=== PATIENT | female | born 1945 | race Caucasian/White ===

== ENCOUNTER → 2017-02-05 | Outpatient (REF) | payer MEDICARE, BC ==
[~2017-02-05] MED LIST: /HCTZ25TA PO; ACET50TA PO; ATOR1TAB21 PO; EFFEXOR PO; EXCEDRIN; FENO145T PO; OXYC30TA4 PO; PERC7.5T12 PO; XARE10TA PO
== END ==
LOC: M LAB REF 16:25
PROVIDERS: ATTEND Nurse Practitioner Adult Health
DX: E78.00 Pure hypercholesterolemia, unspecified (principal)

== ENCOUNTER → 2017-08-09 | Outpatient (REF) | payer MEDICARE, BC ==
[2017-08-09 14:00] LABS: ALBUMIN 3.9 GM/DL (3.2-5.2); ALBUMIN/GLOBULIN RATIO 1.26 (1.00-1.93); ALKALINE PHOSPHATASE 92 U/L (45-117); ALT/SGPT 19 U/L (12-78); ANION GAP 7 MEQ/L (8-16); AST/SGOT 20 U/L (15-37); BILIRUBIN,TOTAL 0.5 MG/DL (0.2-1.0); BLOOD UREA NITROGEN 21 MG/DL (7-18); CALCIUM LEVEL 9.7 MG/DL (8.8-10.2); CARBON DIOXIDE LEVEL 28 MEQ/L (21-32); CHLORIDE LEVEL 104 MEQ/L (98-107); CREATININE FOR GFR 0.83 MG/DL (0.55-1.02); GLOMERULAR FILTRATION RATE > 60.0 (>39); GLUCOSE, FASTING 118 MG/DL (83-110); POTASSIUM SERUM 4.4 MEQ/L (3.5-5.1); SODIUM LEVEL 139 MEQ/L (136-145)
== END ==
LOC: M LAB REF 13:29
PROVIDERS: ATTEND Nurse Practitioner Adult Health
DX: I10 Essential (primary) hypertension (principal); E78.00 Pure hypercholesterolemia, unspecified; R10.11 Right upper quadrant pain

== ENCOUNTER → 2017-08-20 | Outpatient (REF) | payer MEDICARE, BC ==
[2017-08-20 13:25] LABS: AMYLASE 81 U/L (25-115)
[2017-08-20 14:07] LABS: CONTROL LINE HPYORI INT CTR LINE PRESENT
== END ==
LOC: M LABDRWAD 12:16
PROVIDERS: ATTEND Nurse Practitioner Adult Health
DX: R10.11 Right upper quadrant pain (principal)

== ENCOUNTER → 2018-01-04 | Outpatient (CLI) | payer MEDICARE, BC ==
[2018-01-04 18:59] LABS: BASO # 0.1 10^3/uL (0.0-0.2); BASO % 0.8 % (0.0-1.0); EOS # 0.3 10^3/uL (0.0-0.50); EOS % 3.5 % (0.0-3.0); HEMATOCRIT 47.1 % (36.0-47.0); HEMOGLOBIN 14.8 g/dl (12.0-16.0); IMMATURE GRANULOCYTE % 0.3 % (0-3.0); LYMPH # 2.1 10^3/uL (1.5-4.5); MEAN CORPUSCULAR HEMOGLOBIN 30.5 pg (27.0-33.0); MEAN CORPUSCULAR HGB CONC 31.4 g/dl (32.0-36.5); MEAN CORPUSCULAR VOLUME 96.9 fl (80.0-96.0); MONO # 0.6 10^3/uL (0.0-0.8); MONO % 6.8 % (0.0-5.0); NEUTROPHILS # 6.1 10^3/uL (1.8-7.7); NEUTROPHILS % 65.6 % (36.0-66.0); PLATELET COUNT, AUTOMATED 304 10^3/uL (150-450); RED BLOOD COUNT 4.86 10^6/uL (4.00-5.40); RED CELL DISTRIBUTION WIDTH 12.9 % (11.5-14.5); WHITE BLOOD COUNT 9.3 10^3/uL (4.0-10.0)
== END ==
LOC: M ADAMS 08:20
DX: J20.9 Acute bronchitis, unspecified (principal)
CPT/HCPCS: 85025

== ENCOUNTER → 2018-07-21 | Outpatient (REF) | payer MEDICARE, BC ==
[2018-07-21 13:43] LABS: HEPATITIS B SURFACE ANTIGEN NEGATIVE (NEGATIVE)
[2018-07-21 14:06] LABS: HEPATITIS C VIRUS ABY INDEX 0.1 INDEX (<0.8)
[2018-07-21 14:06] LABS: HEPATITIS B CORE ANTIBODY IGM NEGATIVE (NEGATIVE)
[2018-07-21 14:09] LABS: HEPATITIS A ANTIBODY IGM NEGATIVE (NEGATIVE)
== END ==
LOC: M LAB REF 12:10
DX: Z01.89 Encounter for other specified special examinations (principal)
CPT/HCPCS: 87340

== ENCOUNTER → 2020-04-22 | Outpatient (REF) | payer MEDICARE, BC ==
[~2020-04-22] MED LIST changes: -/HCTZ25TA PO; -ACET50TA PO; +HYDR-3644 PO; +MAPA500T17 PO
[2020-04-22 13:05] LABS: APPEARANCE, URINE CLEAR (CLEAR); BACTERIA, URINE AUTO NEGATIVE (NEGATIVE); BILIRUBIN, URINE AUTO NEGATIVE (NEGATIVE); BLOOD, URINE BLOOD NEGATIVE (NEGATIVE); COLOR, URINE YELLOW (YELLOW); GLUCOSE, URINE (UA) AUTO NEGATIVE (NEGATIVE); KETONE, URINE AUTO NEGATIVE (NEGATIVE); LEUKOCYTE ESTERASE, URINE AUTO NEGATIVE (NEGATIVE); MUCUS, URINE SMALL (NEGATIVE); NITRITE, URINE AUTO NEGATIVE (NEGATIVE); PROTEIN, URINE AUTO NEGATIVE (NEGATIVE); RBC, URINE AUTO 1 /HPF (0-3); SPECIFIC GRAVITY URINE AUTO 1.024 (1.002-1.035); SQUAMOUS EPITHELIAL CELL UR AU 0 /HPF (0-6); UROBILINOGEN, URINE AUTO 0.2 mg/dL (0.0-2.0); WBC, URINE AUTO 0 /HPF (0-3)
[2020-04-22 13:06] LABS: BASO # 0.1 10^3/uL (0.0-0.2); BASO % 0.7 % (0.0-1.0); EOS # 0.2 10^3/uL (0.0-0.5); EOS % 2.7 % (0.0-3.0); HEMATOCRIT 44.6 % (36.0-47.0); HEMOGLOBIN 14.4 g/dl (12.0-15.5); LYMPH # 1.3 10^3/uL (1.5-5.0); LYMPH % 16.7 % (24.0-44.0); MEAN CORPUSCULAR HEMOGLOBIN 30.4 pg (27.0-33.0); MEAN CORPUSCULAR HGB CONC 32.3 g/dl (32.0-36.5); MEAN CORPUSCULAR VOLUME 94.3 fl (80.0-96.0); MONO # 0.5 10^3/uL (0.0-0.8); MONO % 5.7 % (0.0-5.0); NEUTROPHILS # 5.9 10^3/uL (1.5-8.5); PLATELET COUNT, AUTOMATED 250 10^3/uL (150-450); RED BLOOD COUNT 4.73 10^6/uL (4.00-5.40)
[2020-04-22 13:13] LABS: ALBUMIN 3.5 GM/DL (3.2-5.2); ALT/SGPT 18 U/L (12-78); BILIRUBIN,TOTAL 0.5 MG/DL (0.2-1.0); BLOOD UREA NITROGEN 16 MG/DL (7-18); CALCIUM LEVEL 9.1 MG/DL (8.8-10.2); CARBON DIOXIDE LEVEL 27 MEQ/L (21-32); CHLORIDE LEVEL 109 MEQ/L (98-107); CHOLESTEROL LEVEL 195 MG/DL (<200); CHOLESTEROL RISK RATIO 3.979 (<5); CREATININE FOR GFR 0.74 MG/DL (0.55-1.30); GLOMERULAR FILTRATION RATE > 60.0 (>39); GLUCOSE, FASTING 102 MG/DL (70-100); HDL CHOLESTEROL 49 MG/DL (>40); LDL CHOLESTEROL 104 MG/DL (<100); NON-HDL-C 146 MG/DL; SODIUM LEVEL 144 MEQ/L (136-145); TOTAL PROTEIN 6.5 GM/DL (6.4-8.2); TRIGLYCERIDES LEVEL 211 MG/DL (<150)
== END ==
LOC: M LABDRWAD 12:19
PROVIDERS: ATTEND Nurse Practitioner Adult Health
DX: I10 Essential (primary) hypertension (principal); E78.00 Pure hypercholesterolemia, unspecified; R73.09 Other abnormal glucose

== ENCOUNTER → 2020-09-20 | Outpatient (REF) | payer MEDICARE, BC ==
[2020-09-20 13:12] LABS: C REACTIVE PROTEIN QUANTITATIV < 0.30 MG/DL (0.00-0.30); RHEUMATOID FACTOR QUANT < 10.0 IU/ML (<15.0)
[2020-09-23 15:07] LABS: ANTINUCLEAR ANTIBODIES DIRECT Negative (Negative); HLA-B27 Negative (.)
== END ==
LOC: M LABDRWAD 12:10
PROVIDERS: ATTEND Physician Assistant
DX: M47.817 Spondylosis without myelopathy or radiculopathy, lumbosacral region (principal)

== ENCOUNTER → 2021-03-14 | Outpatient (REF) | payer MEDICARE, BC ==
[2021-03-14 13:40] LABS: BLOOD UREA NITROGEN 13 MG/DL (7-18); CREATININE FOR GFR 0.65 MG/DL (0.55-1.30); GLOMERULAR FILTRATION RATE > 60.0 (>39)
== END ==
LOC: M LABDRWAD 12:28
PROVIDERS: ATTEND Orthopaedic Surgery Orthopaedic Surgery of the Spine
DX: M54.5 Low back pain (principal)

== ENCOUNTER 2021-06-13 11:35 | Inpatient (IN) | payer MEDICARE, BC ==
[~2021-06-13] VITALS: Ht 170.2 cm; Wt 80.8 kg
[~2021-06-13 11:35] MED LIST changes: +POTA1TAB23 PO
--- NOTE | 2021-06-13 14:24 | HPEPDOC ---
Supervisor Sanding Note DATE OF ADMISSION: 06-13-21 DATE OF SERVICE: 06-13-21 TIME OF ADMISSION: Please refer to physician's admission order. SOURCE OF ADMISSION INFORMATION: Isabela Clancy's record CHIEF COMPLAINT:cervical stenosis s/p decompression surgery HISTORY OF PRESENT ILLNESS: 76F pmh depression, GERD, HLD, HTN, cervical stenosis with worsening LE weakness admitted to [facility] on 06/05/21and underwent a C5-C6 and C6-C7 anterior discectomy fusion cage with local bone graft. Following surgery she developed a C difficile infection and was started on Vancomycin on 06-09-21. She had post-op anemia and hypokalemia. She had persistent weakness in her lower limbs, with mobility and ADL impairments and deemed medically appropriate for discharge to ARU on 06-13-21. REVIEW OF SYSTEMS: The following is a completed review of systems and has been reviewed. Review of systems otherwise unremarkable. PAIN: Patient self reports no pain EYES: No recent vision changes EARS, NOSE, & THROAT: No throat pain, or dysphagia, or rhinorrhea CARDIOVASCULAR: Denies chest pain or palpitations PULMONARY: Denies shortness of breath GASTROINTESTINAL: Denies constipation/diarrhea GENITOURINARY:denies dysuria or incontinence MUSCULOSKELETAL: bilat LE weakness NEUROLOGICAL: denies tremor or paresthesias HEMATOLOGICAL: denies easy bruising SKIN: denies rash PSYCHIATRIC: Unremarkable All other review of systems found to be negative. PAST MEDICAL HISTORY: as per HPI PAST SURGICAL HISTORY: as per HPI ALLERGIES: Please see below. MEDICATIONS: Please see below. SOCIAL HISTORY: no etoh/illicit drugs/smoking DIET:regular PHYSICAL EXAMINATION: VITAL SIGNS: Please see below. GENERAL: Pleasant and cooperative. No acute distress. HEENT: PERRL. Extraocular movements intact. Clear conjunctiva CARDIOVASCULAR: Regular rate and rhythm. No murmurs, rubs, or gallops LUNGS: Clear to auscultation bilaterally. No wheezes. No rhonchi ABDOMEN: Soft, nontender, nondistended. Positive bowel sounds. Normal active bowel sounds NEUROLOGICAL: Alert and oriented times three. Cranial nerves II through XII grossly intact. Sensation grossly intact all 4 limbs. EXTREMITIES: 5\5 strength bilateral upper extremities. 4\5 strength right lower extremity. 5-/5 strength in left lower extremity. SKIN: anterior neck incision with steri-strips, c/d/i LABORATORY DATA: Please see below. IMAGING: Imaging documentation personally reviewed by record FUNCTIONAL STATUS: Premorbid: Mod-Independent with all activities of daily life as well as mobility up until last few months, where she was using wheelchair On Admission: Min assist for bed mobility, functional transfers, dressing, mod- assist for ambulation Goals: Mod-I household distances for ambulation, functional transfers, dressing, toileting, bathing ASSESSMENT:76-year-old F with past medical history of cervical stenosis with bilat LE weakness who presents status post cervical decompression surgery PLAN: 1. Rehab- PT/OT advance mobility and ADLs, strengthen/stretch/maintain ROM al 4limbs, avoid strenuous activity 2. Neuro- cerival stenosis with LE weakness causing significant gait impairment, s/p C5-C6 C6-C7 discectomy with fusion and cage, f/u with Dr. Pereira at [facility] at d/c 3. Cardiac- hx of HTN, cont BP meds -HLD- cont statin -medicine consulted to assist in overall management 4. Resp- monitor for infection 5. GI- cont vancomycin for C diff infection for 2 weeks total, will avoid PPIs as can contribute to C diff infection, and will hold off on magnesium supplements until have Mg level as this can also contribute to diarrhea, will start bacid 6. DVT ppx- teds, avoid AC given recent neck surgery 7. Psych- zoloft and xanax for depression/anxiety 8. Pain- tylenol and oxycodone 9. Dispo- tbd POST ADMISSION PHYSICIAN EVALUATION: Medical and functional status: Description of medical status, medical assessment: As above. Rehabilitation diagnosis and current and prior cold morbid medical conditions as above. Risk of complications and plans to mitigate them as above. Description of functional status current status is as above. Prior status as above. Status compared to preadmission: There are no clinically significant differences between the patient's current status and the information described on the preadmission screening document. Treatment plan anticipated: Treatment plan is as described above. Required disciplines including physical therapy, occupational therapy, others as noted above Intensity of services: 3 hours a day, 6 days a week. Special considerations: There are no specific special or safety considerations that would likely preclude immediate implementation of an intensive rehabilitation program or subsequently influence the plan of care ATTESTATION: Considering all the information above, it is my best judgment that this patient requires intensive rehabilitation therapy as described above and an inpatient hospital environment due to the complexity of nursing, medical, and rehabilitation needs required by the patient. Furthermore, this patient can reasonably be expected to participate in an benefit from an inpatient rehabilitation stay with an interdisciplinary team approach to the delivery of rehabilitation care under the direction and supervision of rehabilitation physician PROGNOSIS: Excellent. ESTIMATED LENGTH OF STAY:14-18 days. PROJECTED DISCHARGE DESTINATION: Home with family support and any durable medical equipment required to increase functional safety and mobility TIME SPENT COUNSELING AND COORDINATING INITIAL CARE: Greater than 70 minutes. Vital Signs Vital Signs Date Time Temp Pulse Resp B/P (MAP) Pulse Ox O2 Delivery O2 Flow Rate FiO2 06/13/21 15:53 96.9 101 20 150/68 (95) 98 Room Air Home Medications Scheduled Atorvastatin Calcium (Atorvastatin Calcium) 40 Mg Tablet, 40 MG PO DAILY, (Reported) Magnesium Oxide (Magnesium Oxide) 400 Mg Tablet, 400 MG PO DAILY, (Reported) Metoprolol Succinate (Metoprolol Succinate) 50 Mg Tab.er.24h, 25 MG PO DAILY, (Reported) Multivitamins (Thera M Plus Tablet) 1 Each Tablet, 1 TAB PO DAILY, (Reported) Omeprazole (Omeprazole) 40 Mg Capsule.dr, 40 MG PO DAILY, (Reported) Potassium Chloride (Potassium Chloride) 10 Meq Tab.er.prt, 10 MEQ PO BID, (Reported) Sertraline Hcl (Zoloft) 100 Mg Tablet, 100 MG PO DAILY, (Reported) Vancomycin HCl (Firvanq) 50 Mg/1 Ml Soln.recon, 125 MG PO Q6H, (Reported) STARTED AT [facility] allopurinoL (allopurinoL) 300 Mg Tablet, 300 MG PO DAILY, (Reported) Scheduled PRN Acetaminophen (Tylenol Extra Strength) 500 Mg Tablet, 1,000 MG PO TID PRN for PAIN LEVEL 1-4, (Reported) Alprazolam (Alprazolam) 0.25 Mg Tablet, 0.25 MG PO DAILY PRN for ANXIETY, (Reported) Lidocaine (Aspercreme) 4% Adh..patch, 1 PATCH TOP DAILY PRN for PAIN LEVEL 4-7, (Reported) Oxycodone HCl (Oxycodone HCl) 5 Mg Tablet, 2.5-5 MG PO Q4H PRN for PAIN LEVEL 7- 10, (Reported) Allergies Coded Allergies: No Known Allergies (Unverified , 04/26/21) A-FIB/CHADSVASC A-FIB History Current/History of A-Fib/PAF?: No Current PO Anticoag Therapy: No JANELLE CHUN MD Jun 13, 2021 14:24
[2021-06-13 15:53] VITALS: BP 150/68
[2021-06-13] MEDS ORDERED: ZOLO100T PO (18:07)
[2021-06-13] MEDS ORDERED: OXYC-517 PO (18:07)
[2021-06-13] MEDS ORDERED: OMEP40CA4 PO (18:07)
[2021-06-13] MEDS ORDERED: FIRV50SO PO (18:07)
[2021-06-13] MEDS ORDERED: ALPR0.25 PO (18:07)
[2021-06-13] MEDS ORDERED: ASPE4PAD TOP (18:07)
[2021-06-13] MEDS ORDERED: POTA10TA17 PO (18:07)
[2021-06-13] MEDS ORDERED: ATOR40TA75 PO (18:07)
[2021-06-13] MEDS ORDERED: VITMTA PO (18:07)
[2021-06-13] MEDS ORDERED: ALLO300T2 PO (18:07)
[2021-06-13] MEDS ORDERED: MAGN400T35 PO (18:07)
[2021-06-13] MEDS ORDERED: ACET-897 PO (18:07)
[2021-06-13] MEDS ORDERED: METO1TAB7 PO (18:07)
[2021-06-13] MEDS ORDERED: HOME MED LIST COMPLETE! XX SCH (18:10)
[2021-06-13] MEDS: VANCOMYCIN ORAL SOL 250MG/5ML ORAL SYRINGE PO SCH ×2 (19:28→22:30)
[2021-06-13 20:00] VITALS: BP 93/50
[2021-06-13 22:00] VITALS: BP 111/57
[2021-06-13] MEDS: REMEDY PHYTOPLEX Z-GUARD PASTE 113GM TUBE (FROM STOREROOM PRODUCT) TOP SCH (22:28)
[2021-06-13] MEDS: POTASSIUM CHLORIDE 10 MEQ SR TABLET PO SCH (22:28)
[2021-06-13] MEDS: ACETAMINOPHEN 500 MG TAB PO SCH (22:28)
[2021-06-14 05:16] VITALS: BP 114/80
[2021-06-14] MEDS: VANCOMYCIN ORAL SOL 250MG/5ML ORAL SYRINGE PO SCH ×3 (06:14→17:18)
[2021-06-14 07:42] LABS: BASO # 0.1 10^3/uL (0.0-0.2); BASO % 0.9 % (0.0-1.0); EOS # 0.1 10^3/uL (0.0-0.5); EOS % 1.1 % (0.0-3.0); HEMATOCRIT 38.2 % (36.0-47.0); HEMOGLOBIN 11.8 g/dl (12.0-15.5); LYMPH # 1.7 10^3/uL (1.5-5.0); LYMPH % 14.4 % (24.0-44.0); MEAN CORPUSCULAR HEMOGLOBIN 29.6 pg (27.0-33.0); MEAN CORPUSCULAR HGB CONC 30.9 g/dl (32.0-36.5); MONO # 0.8 10^3/uL (0.0-0.8); MONO % 7.3 % (2.0-8.0); NEUTROPHILS # 8.2 10^3/uL (1.5-8.5); NEUTROPHILS % 72.2 % (36.0-66.0); PLATELET COUNT, AUTOMATED 348 10^3/uL (150-450); RED BLOOD COUNT 3.98 10^6/uL (4.00-5.40); WHITE BLOOD COUNT 11.4 10^3/uL (4.0-10.0)
[2021-06-14 08:07] LABS: ALBUMIN 1.9 GM/DL (3.2-5.2); ALT/SGPT 10 U/L (12-78); BILIRUBIN,TOTAL 0.5 MG/DL (0.2-1.0); BLOOD UREA NITROGEN 14 MG/DL (7-18); CALCIUM LEVEL 8.5 MG/DL (8.8-10.2); CARBON DIOXIDE LEVEL 25 MEQ/L (21-32); CHLORIDE LEVEL 113 MEQ/L (98-107); CREATININE FOR GFR 0.48 MG/DL (0.55-1.30); GLOMERULAR FILTRATION RATE > 60.0 (>39); GLUCOSE, FASTING 80 MG/DL (70-100); SODIUM LEVEL 145 MEQ/L (136-145); TOTAL PROTEIN 4.9 GM/DL (6.4-8.2)
[2021-06-14] MEDS ORDERED: OMEPRAZOLE 20 MG CAP PO SCH (09:00)
[2021-06-14] MEDS: REMEDY PHYTOPLEX Z-GUARD PASTE 113GM TUBE (FROM STOREROOM PRODUCT) TOP SCH ×3 (09:00→21:00)
[2021-06-14] MEDS ORDERED: METOPROLOL SUCC *XL* 25MG TAB (TopROL *XL*) PO SCH (09:00)
[2021-06-14] MEDS ORDERED: MAGNESIUM OXIDE 400MG TAB (MAG-OX) PO SCH (09:00)
[2021-06-14] MEDS: POTASSIUM CHLORIDE 10 MEQ SR TABLET PO SCH ×2 (09:45→21:20)
[2021-06-14] MEDS: ACETAMINOPHEN 500 MG TAB PO SCH ×3 (09:46→21:20)
[2021-06-14] MEDS: ATORVASTATIN 20 MG TAB PO SCH (09:46)
[2021-06-14] MEDS: SERTRALINE 100 MG TAB PO SCH (09:46)
[2021-06-14] MEDS: allopurinoL 300 MG TAB PO SCH (09:46)
[2021-06-14] MEDS: ALPRAZolam 0.25 MG TAB PO SCH (09:46)
[2021-06-14] MEDS: oxyCODONE 5MG TAB PO PRN ×2 (12:31→21:23)
[2021-06-14 14:00] VITALS: BP 120/73
[2021-06-14] MEDS: METOPROLOL TART 25 MG TABLET PO SCH ×2 (14:00→21:21)
--- NOTE | 2021-06-14 14:06 | HPEPDOC ---
[facility] Medical History & Physical Date of Admission Jun 13, 2021 Date of Service: Jun 14, 2021 Other Provider Maria Eugenia Murillo DO hospitalist Attending Physician: JANELLE CHUN MD History and Physical CHIEF COMPLAINT: Neck pain HISTORY OF PRESENT ILLNESS: Patient is a 76-year-old female who was admitted to the acute rehabilitation unit after a surgery at [facility]. Patient had an anterior discectomy with fusion and bone allograft of C5-6 and C6-7 on 06/06/2021. While the patient was hospitalized she developed C. difficile colitis. Patient has been on oral vancomycin therapy for 6 days. Patient has been working physical therapy since being on the acute rehabilitation unit. Patient states that she is feeling well. Patient states that the surgery went well and other than the complication with C. difficile colitis she has been feeling otherwise well. Patient denies any complaints at this time. PAST MEDICAL HISTORY: 1. Hypertension. 2. Hyperlipidemia. 3. GERD. 4. Depression PAST SURGICAL HISTORY: 1. 2 knee replacements. 2. Back surgeries. 3. Recent cervical surgery. 4. Hysterectomy 5. Appendectomy SOCIAL HISTORY: Patient lives at home and denies any alcohol or tobacco use FAMILY HISTORY: Mother of COPD complications 84. Father of electrocution accident at a young age. ALLERGIES: Please see below. REVIEW OF SYSTEMS: General: Patient denies fevers HEENT: Patient denies headaches Cardiovascular: Patient denies chest pain Respiratory: Patient denies shortness of breath, cough GI: Patient denies abdominal pain, nausea, vomiting, diarrhea : Patient denies increased frequency or pain with urination Extremities: Patient denies swelling or pain in extremities Neurological: Patient denies numbness or tingling in legs Skin: Patient denies any new rashes or lesions. Hematologic: Patient denies any easy bruising. Lymphatic: Patient denies any lumps lumps or bumps in neck, axilla, or groin HOME MEDICATIONS: Please see below. PHYSICAL EXAMINATION: VITAL SIGNS: Temperature 97.8, pulse 109, respiratory rate 16, blood pressure 114/80, pulse oximetry 97% on room air. General: Alert and oriented female patient who was sitting up in bed after working with physical therapy when I walked in the room. Patient not appear to be in any acute distress HEENT: Normocephalic, atraumatic, moist mucous membranes. Neck: No lymphadenopathy or thyromegaly Cardiac: Regular rate and rhythm, no murmurs, normal S1, normal S2 Pulm: Clear to auscultation bilaterally. No wheezes, rhonchi, rales Abd: Nondistended, nontender to palpation, normal bowel sounds Ext: No edema bilateral lower extremities LABORATORY DATA: See below. IMAGING: No imaging has been performed during this admission MICROBIOLOGY: Please see below. ASSESSMENT: 76-year-old female who is in the acute rehabilitation unit for rehab after a cervical spine fusion surgery.. . PLAN: 1. Cervical stenosis. Patient had surgery to fix his cervical stenosis. Patient is in the acute rehab unit for further rehabilitation. Rehab plan per Dr. Neptali Segovia. 2. Hypertension. Continue patient's on medications. 3. C. difficile colitis. Patient's diarrhea has resolved at this time. Continue oral vancomycin for total of 14 days. Today is day 614 end date of vancomycin is 06/22/2021 4. Hyperlipidemia. Continue patient's medications. 5. Depression anxiety. Continue patient's home medications. 6. GERD. Continue patient's medications. 7. DVT prophylaxis early ambulation and teds CODE STATUS: Full code Disposition. Patient is admitted to the acute rehab unit and the patient will continue with rehab per Dr. Neptali Segovia in the acute rehab staff. Please contact hospitalist if the need arises Vital Signs Vital Signs Date Time Temp Pulse Resp B/P (MAP) Pulse Ox O2 Delivery O2 Flow Rate FiO2 06/14/21 12:31 16 06/14/21 05:16 97.8 109 114/80 (91) 97 Room Air Laboratory Data Labs 24H Laboratory Tests 2 06/14/21 07:11: Immature Granulocyte % (Auto) 4.1H, Neutrophils (%) (Auto) 72.2H, Lymphocytes (%) (Auto) 14.4L, Monocytes (%) (Auto) 7.3, Eosinophils (%) (Auto) 1.1, Basophils (%) (Auto) 0.9, Neutrophils # (Auto) 8.2, Lymphocytes # (Auto) 1.7, Monocytes # (Auto) 0.8, Eosinophils # (Auto) 0.1, Basophils # (Auto) 0.1, Nuc leated Red Blood Cells % (auto) 0.0, Anion Gap 7L, Glomerular Filtration Rate > 60.0, Calcium Level 8.5L, Total Bilirubin 0.5, Aspartate Amino Transf (AST/SGOT) 13, Alanine Aminotransferase (ALT/SGPT) 10L, Alkaline Phosphatase 117, Total Protein 4.9L, Albumin 1.9L, Albumin/Globulin Ratio 0.6L CBC/BMP Laboratory Tests 06/14/21 07:11 Home Medications Scheduled Atorvastatin Calcium (Atorvastatin Calcium) 40 Mg Tablet, 40 MG PO DAILY Magnesium Oxide (Magnesium Oxide) 400 Mg Tablet, 400 MG PO DAILY Metoprolol Succinate (Metoprolol Succinate) 50 Mg Tab.er.24h, 25 MG PO DAILY Multivitamins (Thera M Plus Tablet) 1 Each Tablet, 1 TAB PO DAILY Omeprazole (Omeprazole) 40 Mg Capsule.dr, 40 MG PO DAILY Potassium Chloride (Potassium Chloride) 10 Meq Tab.er.prt, 10 MEQ PO BID Sertraline Hcl (Zoloft) 100 Mg Tablet, 100 MG PO DAILY Vancomycin HCl (Firvanq) 50 Mg/1 Ml Soln.recon, 125 MG PO Q6H STARTED AT [facility] allopurinoL (allopurinoL) 300 Mg Tablet, 300 MG PO DAILY Scheduled PRN Acetaminophen (Tylenol Extra Strength) 500 Mg Tablet, 1,000 MG PO TID PRN for PAIN LEVEL 1-4 Alprazolam (Alprazolam) 0.25 Mg Tablet, 0.25 MG PO DAILY PRN for ANXIETY Lidocaine (Aspercreme) 4% Adh..patch, 1 PATCH TOP DAILY PRN for PAIN LEVEL 4-7 Oxycodone HCl (Oxycodone HCl) 5 Mg Tablet, 2.5-5 MG PO Q4H PRN for PAIN LEVEL 7- 10 Allergies Coded Allergies: No Known Allergies (Unverified , 04/26/21) A-FIB/CHADSVASC A-FIB History Current/History of A-Fib/PAF?: No MARIA EUGENIA MURILLO DO Jun 14, 2021 14:06
[2021-06-14 15:15] LABS: MAGNESIUM LEVEL 2.1 MG/DL (1.8-2.4)
[2021-06-14] MEDS: MULTIVITAMINS/MINERALS THERAP 1 TAB PO SCH (15:44)
[2021-06-14] MEDS: LACTOBACILLUS ACIDOPHILUS CAP (BACID) PO SCH ×2 (17:18→21:20)
[2021-06-14 20:00] VITALS: BP 114/62
[2021-06-15] MEDS: VANCOMYCIN ORAL SOL 250MG/5ML ORAL SYRINGE PO SCH ×5 (00:12→23:08)
[2021-06-15] MEDS: METOPROLOL TART 25 MG TABLET PO SCH ×3 (05:17→21:43)
[2021-06-15 06:00] VITALS: BP 104/55
[2021-06-15] MEDS: LACTOBACILLUS ACIDOPHILUS CAP (BACID) PO SCH ×4 (07:37→21:41)
[2021-06-15] MEDS: ACETAMINOPHEN 500 MG TAB PO SCH ×3 (07:37→21:41)
[2021-06-15] MEDS: ALPRAZolam 0.25 MG TAB PO SCH (07:37)
[2021-06-15] MEDS: SERTRALINE 100 MG TAB PO SCH (07:38)
[2021-06-15] MEDS: ATORVASTATIN 20 MG TAB PO SCH (07:38)
[2021-06-15] MEDS: allopurinoL 300 MG TAB PO SCH (07:38)
[2021-06-15] MEDS: MULTIVITAMINS/MINERALS THERAP 1 TAB PO SCH (07:38)
[2021-06-15] MEDS: REMEDY PHYTOPLEX Z-GUARD PASTE 113GM TUBE (FROM STOREROOM PRODUCT) TOP SCH ×3 (07:38→21:00)
[2021-06-15] MEDS: POTASSIUM CHLORIDE 10 MEQ SR TABLET PO SCH ×2 (07:38→21:41)
[2021-06-15] MEDS: oxyCODONE 5MG TAB PO PRN ×2 (08:53→14:53)
--- NOTE | 2021-06-15 10:00 | IPNPDOC ---
PM&R Progress Note DATE OF SERVICE: Jun 15, 2021 [employer] Supervisor Progress Note Subjective: Patient reporting she does not feel short of breath except with exertion and denies chest pressure. She states she is hesitant to have US performed on her legs because she had it done at [facility] already, but agreed to it in light of the fact that there might be clots since she has been immobile, just had surgery, not on anticoagulation, and refusing to wear BRI stocking because they irritate her. REVIEW OF SYSTEMS: The following is a completed review of systems and has been reviewed. Review of systems otherwise unremarkable. PAIN: Patient self reports no pain EYES: No recent vision changes EARS, NOSE, & THROAT: No throat pain, or dysphagia, or rhinorrhea CARDIOVASCULAR: Denies chest pain or palpitations PULMONARY: Denies shortness of breath GASTROINTESTINAL: Denies constipation/diarrhea GENITOURINARY:denies dysuria or incontinence MUSCULOSKELETAL: bilat LE weakness NEUROLOGICAL: denies tremor or paresthesias HEMATOLOGICAL: denies easy bruising SKIN: denies rash PSYCHIATRIC: Unremarkable All other review of systems found to be negative. PHYSICAL EXAMINATION: VITAL SIGNS: Please see below. GENERAL: Pleasant and cooperative. No acute distress. HEENT: PERRL. Extraocular movements intact. Clear conjunctiva CARDIOVASCULAR: Regular rate and rhythm. No murmurs, rubs, or gallops LUNGS: Clear to auscultation bilaterally. No wheezes. No rhonchi ABDOMEN: Soft, nontender, nondistended. Positive bowel sounds. Normal active bowel sounds NEUROLOGICAL: Alert and oriented times three. Cranial nerves II through XII grossly intact. Sensation grossly intact all 4 limbs. EXTREMITIES: 5\5 strength bilateral upper extremities. 4\5 strength right lower extremity. 5-/5 strength in left lower extremity. SKIN: anterior neck incision with steri-strips, c/d/i ASSESSMENT:76-year-old F with past medical history of cervical stenosis with bilat LE weakness who presents status post cervical decompression surgery PLAN: 1. Rehab- PT/OT advance mobility and ADLs, strengthen/stretch/maintain ROM al 4limbs, avoid strenuous activity- ambulating with RW 2. Neuro- cervical stenosis with LE weakness causing significant gait impairment, s/p C5-C6 C6-C7 discectomy with fusion and cage, f/u with Dr. Pereira at [facility] at d/c 3. Cardiac- hx of HTN, cont BP meds -HLD- cont statin -patient with bilat edema, will fluid restrict and start lasix, daily weights -medicine consulted to assist in overall management 4. Resp- monitor for infection 5. GI- cont vancomycin for C diff infection for 2 weeks total, will avoid PPIs as can contribute to C diff infection, and will hold off on magnesium supplements until have Mg level as this can also contribute to diarrhea, cont bacid 6. DVT ppx- teds, avoid AC given recent neck surgery -given immobility and bilat leg swelling will order dopplers (they were ordered for 06-14-21, but patient refused stating she had it done already at [facility]) 7. Psych- zoloft and xanax for depression/anxiety 8. Pain- tylenol and oxycodone 9. Dispo- tbd Allergies Coded Allergies: No Known Allergies (Unverified , 04/26/21) Vital Signs Vital Signs Date Time Temp Pulse Resp B/P (MAP) Pulse Ox O2 Delivery O2 Flow Rate FiO2 06/15/21 09:23 16 06/15/21 06:00 97.6 93 104/55 (71) 98 Room Air Current Medications Current Medications Current Medications Medications (Trade) Dose Ordered Sig/Lou Route PRN Reason Start Time Stop Time Status Last Admin Dose Admin Acetaminophen (Tylenol Tab) 1,000 mg TID PO 06/13/21 21:00 06/15/21 07:37 Allopurinol (Zyloprim) 300 mg DAILY PO 06/14/21 09:00 06/15/21 07:38 Alprazolam (Xanax) 0.25 mg DAILY PO 06/14/21 09:00 06/15/21 07:37 Atorvastatin Calcium (Lipitor) 40 mg DAILY PO 06/14/21 09:00 06/15/21 07:38 Home Med (Med Rec Complete!) ASDIRECTED XX 06/13/21 18:10 06/13/21 18:24 DC Lactobacillus Acidophilus (Bacid) 1 ea [facility]HS PO 06/14/21 18:00 06/15/21 07:37 Magnesium Oxide (Mag-Ox) 400 mg DAILY PO 06/14/21 09:00 06/14/21 15:00 DC Metoprolol Succinate (TopROL XL) 25 mg DAILY PO 06/14/21 09:00 06/14/21 16:01 DC Metoprolol Tartrate (Lopressor) 25 mg Q8H PO 06/14/21 14:00 Multivitamins (Theragram-M) 1 tab DAILY PO 06/14/21 09:00 06/15/21 07:38 Omeprazole (PriLOSEC) 40 mg DAILY PO 06/14/21 09:00 06/14/21 15:01 DC 06/14/21 09:47 Oxycodone HCl (Roxicodone, Oxyir) 5 mg Q4HP PRN PO MODERATE PAIN (PS 5-7) 06/13/21 14:10 06/15/21 08:53 Potassium Chloride (Micro-K Extencaps) 10 meq BID PO 06/13/21 21:00 06/15/21 07:38 Sertraline HCl (Zoloft) 100 mg DAILY PO 06/14/21 09:00 06/15/21 07:38 Vancomycin HCl (First-Vancomycin 50(Firvanq)- 250mg/5ml) 125 mg Q6H PO 06/13/21 18:00 06/15/21 05:36 JANELLE CHUN MD Jun 15, 2021 10:00
[2021-06-15 13:55] VITALS: BP 119/63
[2021-06-15] MEDS: FUROSEMIDE 20 MG TAB PO SCH (14:53)
--- NOTE | 2021-06-15 16:58 | REP ---
INDICATION: immobility. COMPARISON: None. TECHNIQUE: Multiple ultrasonographic images of the deep venous structures of the bilateral lower extremity were obtained from the inguinal ligament to the ankle. Venous compression techniques, color doppler imaging, and augmentation techniques were also obtained where appropriate. As per the ACR guidelines the anterior tibial vein can not be effectively evaluated. Only compression techniques in the calf on the peroneal and posterior tibial veins was attempted/performed. FINDINGS: There is abnormal echogenic material seen within the popliteal vein bilaterally and in the mid to distal femoral vein on the right consistent with acute thrombosis. Coaptation is unobtainable.. Doppler interrogation shows an abnormal response to respiratory variability and augmentation in the thigh. Compression techniques in the calf were unobtainable. The color flow images show what appears to be a normal vascular pattern throughout the thigh. IMPRESSION: There is ultrasonographic evidence of deep venous thrombosis involving the popliteal vein bilaterally and the mid to distal right femoral vein as described above. Due to technical parameters calf vein DVT can not be ruled out. <Electronically signed by Min Theodore > 06/15/21 2031
[2021-06-15 20:00] VITALS: BP 100/60
[2021-06-15] MEDS ORDERED: ISOVUE-370 76% 100ML VIAL As Ordered ONE (20:27)
[2021-06-15 22:11] LABS: PROTHROMBIN TIME 13.6 SECONDS (12.7-14.5)
[2021-06-15 22:12] LABS: PARTIAL THROMBOPLASTIN TIME 29.6 SECONDS (25.9-37.0)
[2021-06-15] MEDS: APIXABAN 5 MG TAB (ELIQUIS) PO SCH (23:08)
[2021-06-15 23:19] VITALS: BP 103/52
[2021-06-16] VITALS (7 sets, daily range): BP systolic 103–130; BP diastolic 56–86
[2021-06-16] MEDS: VANCOMYCIN ORAL SOL 250MG/5ML ORAL SYRINGE PO SCH ×4 (05:25→23:21)
[2021-06-16] MEDS: METOPROLOL TART 25 MG TABLET PO SCH ×3 (05:30→22:00)
[2021-06-16] MEDS: ALPRAZolam 0.25 MG TAB PO SCH (07:30)
[2021-06-16] MEDS: LACTOBACILLUS ACIDOPHILUS CAP (BACID) PO SCH ×4 (07:30→20:43)
[2021-06-16] MEDS: APIXABAN 5 MG TAB (ELIQUIS) PO SCH ×2 (07:30→20:44)
[2021-06-16] MEDS: POTASSIUM CHLORIDE 10 MEQ SR TABLET PO SCH ×2 (07:30→20:44)
[2021-06-16] MEDS: FUROSEMIDE 20 MG TAB PO SCH (07:31)
[2021-06-16] MEDS: SERTRALINE 100 MG TAB PO SCH (07:31)
[2021-06-16] MEDS: MULTIVITAMINS/MINERALS THERAP 1 TAB PO SCH (07:31)
[2021-06-16] MEDS: ACETAMINOPHEN 500 MG TAB PO SCH ×3 (07:31→20:44)
[2021-06-16] MEDS: ATORVASTATIN 20 MG TAB PO SCH (07:32)
[2021-06-16] MEDS: allopurinoL 300 MG TAB PO SCH (07:32)
[2021-06-16] MEDS: REMEDY PHYTOPLEX Z-GUARD PASTE 113GM TUBE (FROM STOREROOM PRODUCT) TOP SCH ×3 (07:32→21:34)
[2021-06-16] MEDS: oxyCODONE 5MG TAB PO PRN ×2 (10:47→20:50)
[2021-06-17] VITALS: BP 124/63
[2021-06-17] MEDS: METOPROLOL TART 25 MG TABLET PO SCH ×3 (05:41→20:49)
[2021-06-17] MEDS: VANCOMYCIN ORAL SOL 250MG/5ML ORAL SYRINGE PO SCH ×3 (05:41→17:23)
[2021-06-17 06:00] VITALS: BP 106/54
[2021-06-17] MEDS ORDERED: oxyCODONE 5MG TAB PO PRN (07:30)
[2021-06-17] MEDS: oxyCODONE 5MG TAB PO SCH ×2 (08:00→12:01)
[2021-06-17] MEDS: REMEDY PHYTOPLEX Z-GUARD PASTE 113GM TUBE (FROM STOREROOM PRODUCT) TOP SCH ×3 (09:00→20:49)
[2021-06-17] MEDS: LACTOBACILLUS ACIDOPHILUS CAP (BACID) PO SCH ×4 (09:02→20:48)
[2021-06-17] MEDS: allopurinoL 300 MG TAB PO SCH (09:04)
[2021-06-17] MEDS: POTASSIUM CHLORIDE 10 MEQ SR TABLET PO SCH ×2 (09:04→20:48)
[2021-06-17] MEDS: ATORVASTATIN 20 MG TAB PO SCH (09:04)
[2021-06-17] MEDS: SERTRALINE 100 MG TAB PO SCH (09:04)
[2021-06-17] MEDS: ACETAMINOPHEN 500 MG TAB PO SCH ×3 (09:05→20:49)
[2021-06-17] MEDS: FUROSEMIDE 20 MG TAB PO SCH (09:05)
[2021-06-17] MEDS: MULTIVITAMINS/MINERALS THERAP 1 TAB PO SCH (09:05)
[2021-06-17] MEDS: ALPRAZolam 0.25 MG TAB PO SCH (09:05)
[2021-06-17] MEDS: APIXABAN 5 MG TAB (ELIQUIS) PO SCH ×2 (09:06→20:48)
[2021-06-17 10:00] VITALS: BP 127/69
[2021-06-17 14:00] VITALS: BP 116/69
[2021-06-17 18:00] VITALS: BP 112/64
[2021-06-17 20:50] VITALS: BP 85/52
[2021-06-18] VITALS (7 sets, daily range): BP systolic 98–120; BP diastolic 52–64
[2021-06-18] MEDS: METOPROLOL TART 25 MG TABLET PO SCH (06:00)
[2021-06-18] MEDS: VANCOMYCIN ORAL SOL 250MG/5ML ORAL SYRINGE PO SCH ×5 (06:09→23:50)
[2021-06-18] MEDS: LACTOBACILLUS ACIDOPHILUS CAP (BACID) PO SCH ×4 (07:27→20:59)
[2021-06-18] MEDS: oxyCODONE 5MG TAB PO SCH ×2 (07:28→13:01)
[2021-06-18] MEDS: ALPRAZolam 0.25 MG TAB PO SCH (07:29)
[2021-06-18] MEDS: FUROSEMIDE 20 MG TAB PO SCH (07:30)
[2021-06-18] MEDS: POTASSIUM CHLORIDE 10 MEQ SR TABLET PO SCH ×2 (07:30→20:58)
[2021-06-18] MEDS: ACETAMINOPHEN 500 MG TAB PO SCH ×3 (07:30→21:02)
[2021-06-18] MEDS: SERTRALINE 100 MG TAB PO SCH (07:30)
[2021-06-18] MEDS: MULTIVITAMINS/MINERALS THERAP 1 TAB PO SCH (07:30)
[2021-06-18] MEDS: APIXABAN 5 MG TAB (ELIQUIS) PO SCH ×2 (07:31→20:59)
[2021-06-18] MEDS: ATORVASTATIN 20 MG TAB PO SCH (07:31)
[2021-06-18] MEDS: allopurinoL 300 MG TAB PO SCH (07:31)
[2021-06-18] MEDS: REMEDY PHYTOPLEX Z-GUARD PASTE 113GM TUBE (FROM STOREROOM PRODUCT) TOP SCH ×3 (07:36→21:05)
[2021-06-18] MEDS: METOPROLOL TART 12.5 MG PER 1/2 TAB PO SCH ×2 (09:33→21:02)
--- NOTE | 2021-06-18 17:15 | IPNPDOC ---
Text Note Date of Service The patient was seen on 06/18/21. NOTE Subjective: Patient is a 76-year-old female who was admitted to the acute rehabilitation unit after surgery at [facility]. Patient had an anterior discectomy with fusion and bone allograft of C5-6 and C6-7 on 06/06/2021. Patient has been refusing to take her metoprolol because it was causing her low blood pressure in the hospital at [facility] and she was concerned that it would cause her low blood pressure here. Nursing was calling the throughout the day yesterday and today about this. Patient's metoprolol was changed this morning from 25 mg every 8 to 12.5 mg twice daily. Patient has been working with therapy and she is a little bit upset that she is on a fluid restriction and is taking a water pill. Patient states that her diarrhea has improved and she is still taking the oral vancomycin. Review of systems: General: Patient denies fevers HEENT: Patient denies headaches Cardiovascular: Patient denies chest pain Respiratory: Patient denies shortness of breath, cough GI: Patient denies abdominal pain, nausea, vomiting, diarrhea : Patient denies increased frequency or pain with urination Extremities: Patient denies swelling or pain in extremities Neurological: Patient denies numbness or tingling in legs Physical exam: Vitals: See below General: Alert and oriented female patient who was working with physical therapy when I walked in the room. Patient not appear to be in any acute distress. HEENT: Normocephalic, atraumatic, moist mucous membranes. Neck: No lymphadenopathy or thyromegaly Cardiac: Regular rate and rhythm, no murmurs, normal S1, normal S2 Pulm: Clear to auscultation bilaterally. No wheezes, rhonchi, rales Abd: Nondistended, nontender to palpation, normal bowel sounds Ext: No edema bilateral lower extremities Labs: See below Imaging: No new imaging is been performed Assessment/plan: 76-year-old female who is in the acute rehabilitation unit for rehab after cervical spine fusion surgery 1. Cervical stenosis. Patient had surgery to fix cervical stenosis. Patient is in acute rehab for further rehabilitation. Rehab plan per ARU. 2. Hypertension. Continue patient's medications. 3. Palpitations. Patient presented to the emergency department in 2014 and was diagnosed with multiple PVCs. Patient states she went to see a direct care specialist. Patient was asking about her metoprolol as it was causing her low blood pressures at [facility]. I did explain that it appears that the patient may have been placed on the metoprolol due to her palpitations. Patient was on 25 mg of metoprolol succinate. I have changed her to 12.5 mg of metoprolol tartrate twice daily. I did explain to the patient that she should continue taking his medication as she just had surgery and continuing beta- mala therapy in the postoperative period has been shown to decrease mortality. Patient is in agreement to continue taking his medication. 4. C. difficile colitis. Continue oral vancomycin for 14 days. Last day will be 06/22/2021. 5. Hyperlipidemia. Continue patient home medications. 6. Depression and anxiety. Continue patient's home medications. 7. GERD. Continue patient's home medications DVT Prophylaxis: Early ambulation and teds Disposition: Per ARU staff VS,Silvestre, I+O VS, Silvestre, I+O Vital Signs Date Time Temp Pulse Resp B/P (MAP) Pulse Ox O2 Delivery O2 Flow Rate FiO2 06/18/21 13:35 18 Room Air 06/18/21 13:09 98.4 85 101/56 (17) 98 I&O- Last 24 Hours up to 6 AM 06/18/21 06:00 Intake Total 720 ml Output Total 200 ml Balance 520 ml MARIA EUGENIA MURILLO DO Jun 18, 2021 17:15
[2021-06-19] VITALS: BP 113/59
[2021-06-19 04:00] VITALS: BP 119/58
[2021-06-19] MEDS: VANCOMYCIN ORAL SOL 250MG/5ML ORAL SYRINGE PO SCH ×2 (05:59→12:07)
[2021-06-19 06:48] LABS: BASO # 0.1 10^3/uL (0.0-0.2); BASO % 0.8 % (0.0-1.0); EOS # 0.1 10^3/uL (0.0-0.5); EOS % 1.5 % (0.0-3.0); HEMATOCRIT 35.3 % (36.0-47.0); HEMOGLOBIN 10.9 g/dl (12.0-15.5); LYMPH % 26.1 % (24.0-44.0); MEAN CORPUSCULAR HEMOGLOBIN 29.9 pg (27.0-33.0); MEAN CORPUSCULAR HGB CONC 30.9 g/dl (32.0-36.5); MONO # 0.6 10^3/uL (0.0-0.8); MONO % 7.4 % (2.0-8.0); NEUTROPHILS # 4.8 10^3/uL (1.5-8.5); NEUTROPHILS % 61.5 % (36.0-66.0); PLATELET COUNT, AUTOMATED 376 10^3/uL (150-450); RED BLOOD COUNT 3.64 10^6/uL (4.00-5.40); WHITE BLOOD COUNT 7.8 10^3/uL (4.0-10.0)
[2021-06-19 07:03] LABS: BLOOD UREA NITROGEN 13 MG/DL (7-18); CALCIUM LEVEL 8.3 MG/DL (8.8-10.2); CARBON DIOXIDE LEVEL 26 MEQ/L (21-32); CHLORIDE LEVEL 115 MEQ/L (98-107); GLOMERULAR FILTRATION RATE > 60.0 (>39); GLUCOSE, FASTING 83 MG/DL (70-100); SODIUM LEVEL 145 MEQ/L (136-145)
[2021-06-19] MEDS: POTASSIUM CHLORIDE 10 MEQ SR TABLET PO SCH ×2 (07:40→20:24)
[2021-06-19] MEDS: allopurinoL 300 MG TAB PO SCH (07:41)
[2021-06-19] MEDS: ALPRAZolam 0.25 MG TAB PO SCH (07:41)
[2021-06-19] MEDS: MULTIVITAMINS/MINERALS THERAP 1 TAB PO SCH (07:41)
[2021-06-19] MEDS: METOPROLOL TART 12.5 MG PER 1/2 TAB PO SCH ×2 (07:41→20:24)
[2021-06-19] MEDS: APIXABAN 5 MG TAB (ELIQUIS) PO SCH ×2 (07:41→20:24)
[2021-06-19] MEDS: ATORVASTATIN 20 MG TAB PO SCH (07:41)
[2021-06-19] MEDS: FUROSEMIDE 20 MG TAB PO SCH (07:42)
[2021-06-19] MEDS: SERTRALINE 100 MG TAB PO SCH (07:42)
[2021-06-19] MEDS: oxyCODONE 5MG TAB PO SCH ×2 (07:43→12:08)
[2021-06-19] MEDS: LACTOBACILLUS ACIDOPHILUS CAP (BACID) PO SCH ×4 (07:43→20:24)
[2021-06-19] MEDS: ACETAMINOPHEN 500 MG TAB PO SCH ×3 (07:45→20:24)
[2021-06-19] MEDS: REMEDY PHYTOPLEX Z-GUARD PASTE 113GM TUBE (FROM STOREROOM PRODUCT) TOP SCH ×3 (07:46→20:25)
--- NOTE | 2021-06-19 10:25 | IPNPDOC ---
PM&R Progress Note DATE OF SERVICE: Jun 16, 2021 [employer] Progress Note Subjective: Patient reporting she is feeling well today and udnerstnads that she will need her blood drawn with some frequency. She denies chest pressure or chest pain, but does understand that because she did not go down for CTA due to poor IV access that she may also have clots in her lungs. She declined having a PICC placed. REVIEW OF SYSTEMS: The following is a completed review of systems and has been reviewed. Review of systems otherwise unremarkable. PAIN: Patient self reports no pain EYES: No recent vision changes EARS, NOSE, & THROAT: No throat pain, or dysphagia, or rhinorrhea CARDIOVASCULAR: Denies chest pain or palpitations PULMONARY: Denies shortness of breath GASTROINTESTINAL: Denies constipation/diarrhea GENITOURINARY:denies dysuria or incontinence MUSCULOSKELETAL: bilat LE weakness NEUROLOGICAL: denies tremor or paresthesias HEMATOLOGICAL: denies easy bruising SKIN: denies rash PSYCHIATRIC: Unremarkable All other review of systems found to be negative. PHYSICAL EXAMINATION: VITAL SIGNS: Please see below. GENERAL: Pleasant and cooperative. No acute distress. HEENT: PERRL. Extraocular movements intact. Clear conjunctiva CARDIOVASCULAR: Regular rate and rhythm. No murmurs, rubs, or gallops LUNGS: Clear to auscultation bilaterally. No wheezes. No rhonchi ABDOMEN: Soft, nontender, nondistended. Positive bowel sounds. Normal active bowel sounds NEUROLOGICAL: Alert and oriented times three. Cranial nerves II through XII grossly intact. Sensation grossly intact all 4 limbs. EXTREMITIES: 5\\5 strength bilateral upper extremities. 4\\5 strength right lower extremity. 5-/5 strength in left lower extremity. bilat LE edema SKIN: anterior neck incision with steri-strips, c/d/i ASSESSMENT:76-year-old F with past medical history of cervical stenosis with bilat LE weakness who presents status post cervical decompression surgery PLAN: 1. Rehab- PT/OT advance mobility and ADLs, strengthen/stretch/maintain ROM al 4limbs, avoid strenuous activity- ambulating with RW 2. Neuro- cervical stenosis with LE weakness causing significant gait impairment, s/p C5-C6 C6-C7 discectomy with fusion and cage, f/u with Dr. Pereira at [facility] at d/c 3. Cardiac- hx of HTN, cont BP meds -HLD- cont statin -patient with bilat edema, will fluid restrict cont lasix, daily weights -medicine consulted to assist in overall management 4. Resp- monitor for infection 5. GI- cont vancomycin for C diff infection for 2 weeks total, will avoid PPIs as can contribute to C diff infection, and will hold off on magnesium supplements, Mg levels WNL, cont bacid 6. DVT- There is ultrasonographic evidence of deep venous thrombosis involving the popliteal vein bilaterally and the mid to distal right femoral vein as described above." results obtained 06-15-21, case discussed with Dr. Luu the on-call surgeon at [facility] who discussed with Dr. Pereira who said ok to treat VTE, CTA was ordered to r/o PE, but patient was difficult venous stick with multiple attempts made including with US, given treatment for PE and DVT is the same, patient started on Eliquis 10mg BID x 7 days to be followed by 5mg BID for at least 3 months, to be followed-up by PMD- discussed DVT findings and treatment with on- call hospitalist 7. Psych- zoloft and xanax for depression/anxiety 8. Pain- tylenol and oxycodone 9. Dispo- tbd Allergies Coded Allergies: No Known Allergies (Unverified , 04/26/21) Vital Signs Vital Signs Date Time Temp Pulse Resp B/P (MAP) Pulse Ox O2 Delivery O2 Flow Rate FiO2 06/19/21 08:13 16 06/19/21 07:41 70 119/58 06/19/21 04:00 97.8 99 Room Air Laboratory Data CBC/BMP Laboratory Tests 06/19/21 06:27 Labs 24H Laboratory Tests 2 06/19/21 06:27: Immature Granulocyte % (Auto) 2.7, Neutrophils (%) (Auto) 61.5, Lymphocytes (%) (Auto) 26.1, Monocytes (%) (Auto) 7.4, Eosinophils (%) (Auto) 1.5, Basophils (%) (Auto) 0.8, Neutrophils # (Auto) 4.8, Lymphocytes # (Auto) 2.0, Monocytes # (Auto) 0.6, Eosinophils # (Auto) 0.1, Basophils # (Auto) 0.1, Nucleated Red Blood Cells % (auto) 0.0, Anion Gap 4L, Glomerular Filtration Rate > 60.0, Calcium Level 8.3L Current Medications Current Medications Current Medications Medications (Trade) Dose Ordered Sig/Lou Route PRN Reason Start Time Stop Time Status Last Admin Dose Admin Acetaminophen (Tylenol Tab) 1,000 mg TID PO 06/13/21 21:00 06/19/21 07:45 Allopurinol (Zyloprim) 300 mg DAILY PO 06/14/21 09:00 06/19/21 07:41 Alprazolam (Xanax) 0.25 mg DAILY PO 06/14/21 09:00 06/19/21 07:41 Apixaban (Eliquis) 5 mg BID PO 06/22/21 21:00 Apixaban (Eliquis) 10 mg BID PO 06/15/21 21:00 06/22/21 09:01 06/19/21 07:41 Atorvastatin Calcium (Lipitor) 40 mg DAILY PO 06/14/21 09:00 06/19/21 07:41 Furosemide (Lasix) 20 mg DAILY PO 06/15/21 09:00 06/19/21 07:42 Home Med (Med Rec Complete!) ASDIRECTED XX 06/13/21 18:10 06/13/21 18:24 DC Lactobacillus Acidophilus (Bacid) 1 ea WMHS PO 06/14/21 18:00 06/19/21 07:43 Magnesium Oxide (Mag-Ox) 400 mg DAILY PO 06/14/21 09:00 06/14/21 15:00 DC Metoprolol Succinate (TopROL XL) 25 mg DAILY PO 06/14/21 09:00 06/14/21 16:01 DC Metoprolol Tartrate (Lopressor) 12.5 mg BID PO 06/18/21 09:00 06/19/21 07:41 Metoprolol Tartrate (Lopressor) 25 mg Q8H PO 06/14/21 14:00 06/18/21 07:18 DC 06/17/21 14:36 Miscellaneous (Unresolved Clarification Entry) SEE LABEL COMMENTS DAILY XX 06/15/21 09:00 06/15/21 21:41 DC Multivitamins (Theragram-M) 1 tab DAILY PO 06/14/21 09:00 06/19/21 07:41 Omeprazole (PriLOSEC) 40 mg DAILY PO 06/14/21 09:00 06/14/21 15:01 DC 06/14/21 09:47 Oxycodone HCl (Roxicodone, Oxyir) 5 mg 0800,1300 PO 06/17/21 08:00 06/19/21 07:43 Oxycodone HCl (Roxicodone, Oxyir) 5 mg Q4HP PRN PO MODERATE PAIN (PS 5-7) 06/13/21 14:10 06/17/21 07:26 DC 06/16/21 20:50 Oxycodone HCl (Roxicodone, Oxyir) 5 mg Q8H PRN PO PAIN 7-10 06/17/21 07:30 06/18/21 21:03 Potassium Chloride (Micro-K Extencaps) 10 meq BID PO 06/13/21 21:00 06/19/21 07:40 Sertraline HCl (Zoloft) 100 mg DAILY PO 06/14/21 09:00 06/19/21 07:42 Vancomycin HCl (First-Vancomycin 50(Firvanq)- 250mg/5ml) 125 mg Q6H PO 06/13/21 18:00 06/19/21 12:01 06/19/21 05:59 JANELLE CHUN MD Jun 19, 2021 10:25
--- NOTE | 2021-06-19 10:26 | IPNPDOC ---
PM&R Progress Note DATE OF SERVICE: Jun 19, 2021 [employer] Progress Note Subjective: Patient stating she had a good weekend and continues to get stronger. REVIEW OF SYSTEMS: The following is a completed review of systems and has been reviewed. Review of systems otherwise unremarkable. PAIN: Patient self reports no pain EYES: No recent vision changes EARS, NOSE, & THROAT: No throat pain, or dysphagia, or rhinorrhea CARDIOVASCULAR: Denies chest pain or palpitations PULMONARY: Denies shortness of breath GASTROINTESTINAL: Denies constipation/diarrhea GENITOURINARY:denies dysuria or incontinence MUSCULOSKELETAL: bilat LE weakness (improving) NEUROLOGICAL: denies tremor or paresthesias HEMATOLOGICAL: denies easy bruising SKIN: denies rash PSYCHIATRIC: Unremarkable All other review of systems found to be negative. PHYSICAL EXAMINATION: VITAL SIGNS: Please see below. GENERAL: Pleasant and cooperative. No acute distress. HEENT: PERRL. Extraocular movements intact. Clear conjunctiva CARDIOVASCULAR: Regular rate and rhythm. No murmurs, rubs, or gallops LUNGS: Clear to auscultation bilaterally. No wheezes. No rhonchi ABDOMEN: Soft, nontender, nondistended. Positive bowel sounds. Normal active bowel sounds NEUROLOGICAL: Alert and oriented times three. Cranial nerves II through XII grossly intact. Sensation grossly intact all 4 limbs. EXTREMITIES: 5\\5 strength bilateral upper extremities. 4\\5 strength right lower extremity. 5-/5 strength in left lower extremity. bilat LE edema SKIN: anterior neck incision with steri-strips, c/d/i ASSESSMENT:76-year-old F with past medical history of cervical stenosis with bilat LE weakness who presents status post cervical decompression surgery PLAN: 1. Rehab- PT/OT advance mobility and ADLs, strengthen/stretch/maintain ROM al 4limbs, avoid strenuous activity- ambulating with RW 2. Neuro- cervical stenosis with LE weakness causing significant gait impairment, s/p C5-C6 C6-C7 discectomy with fusion and cage, f/u with Dr. Pereira at [facility] at d/c 3. Cardiac- hx of HTN, cont BP meds -HLD- cont statin -patient with bilat edema, will fluid restrict cont lasix, daily weights -medicine consulted to assist in overall management 4. Resp- monitor for infection 5. GI- cont vancomycin for C diff infection for 2 weeks total, will avoid PPIs as can contribute to C diff infection, and will hold off on magnesium supplements, Mg levels WNL, cont bacid 6. DVT- There is ultrasonographic evidence of deep venous thrombosis involving the popliteal vein bilaterally and the mid to distal right femoral vein as described above." results obtained 06-15-21, case discussed with Dr. Luu the on-call surgeon at [facility] who discussed with Dr. Pereira who said ok to treat VTE, CTA was ordered to r/o PE, but patient was difficult venous stick with multiple attempts made including with US, given treatment for PE and DVT is the same, patient started on Eliquis 10mg BID x 7 days to be followed by 5mg BID for at least 3 months, to be followed-up by PMD- discussed DVT findings and treatment with on- call hospitalist 7. Psych- zoloft and xanax for depression/anxiety 8. Pain- tylenol and oxycodone 9. Dispo- tbd Allergies Coded Allergies: No Known Allergies (Unverified , 04/26/21) Vital Signs Vital Signs Date Time Temp Pulse Resp B/P (MAP) Pulse Ox O2 Delivery O2 Flow Rate FiO2 06/19/21 08:13 16 06/19/21 07:41 70 119/58 06/19/21 04:00 97.8 99 Room Air Laboratory Data CBC/BMP Laboratory Tests 06/19/21 06:27 Labs 24H Laboratory Tests 2 06/19/21 06:27: Immature Granulocyte % (Auto) 2.7, Neutrophils (%) (Auto) 61.5, Lymphocytes (%) (Auto) 26.1, Monocytes (%) (Auto) 7.4, Eosinophils (%) (Auto) 1.5, Basophils (%) (Auto) 0.8, Neutrophils # (Auto) 4.8, Lymphocytes # (Auto) 2.0, Monocytes # (Au to) 0.6, Eosinophils # (Auto) 0.1, Basophils # (Auto) 0.1, Nucleated Red Blood Cells % (auto) 0.0, Anion Gap 4L, Glomerular Filtration Rate > 60.0, Calcium Level 8.3L Current Medications Current Medications Current Medications Medications (Trade) Dose Ordered Sig/Lou Route PRN Reason Start Time Stop Time Status Last Admin Dose Admin Acetaminophen (Tylenol Tab) 1,000 mg TID PO 06/13/21 21:00 06/19/21 07:45 Allopurinol (Zyloprim) 300 mg DAILY PO 06/14/21 09:00 06/19/21 07:41 Alprazolam (Xanax) 0.25 mg DAILY PO 06/14/21 09:00 06/19/21 07:41 Apixaban (Eliquis) 5 mg BID PO 06/22/21 21:00 Apixaban (Eliquis) 10 mg BID PO 06/15/21 21:00 06/22/21 09:01 06/19/21 07:41 Atorvastatin Calcium (Lipitor) 40 mg DAILY PO 06/14/21 09:00 06/19/21 07:41 Furosemide (Lasix) 20 mg DAILY PO 06/15/21 09:00 06/19/21 07:42 Home Med (Med Rec Complete!) ASDIRECTED XX 06/13/21 18:10 06/13/21 18:24 DC Lactobacillus Acidophilus (Bacid) 1 ea WMHS PO 06/14/21 18:00 06/19/21 07:43 Magnesium Oxide (Mag-Ox) 400 mg DAILY PO 06/14/21 09:00 06/14/21 15:00 DC Metoprolol Succinate (TopROL XL) 25 mg DAILY PO 06/14/21 09:00 06/14/21 16:01 DC Metoprolol Tartrate (Lopressor) 12.5 mg BID PO 06/18/21 09:00 06/19/21 07:41 Metoprolol Tartrate (Lopressor) 25 mg Q8H PO 06/14/21 14:00 06/18/21 07:18 DC 06/17/21 14:36 Miscellaneous (Unresolved Clarification Entry) SEE LABEL COMMENTS DAILY XX 06/15/21 09:00 06/15/21 21:41 DC Multivitamins (Theragram-M) 1 tab DAILY PO 06/14/21 09:00 06/19/21 07:41 Omeprazole (PriLOSEC) 40 mg DAILY PO 06/14/21 09:00 06/14/21 15:01 DC 06/14/21 09:47 Oxycodone HCl (Roxicodone, Oxyir) 5 mg 0800,1300 PO 06/17/21 08:00 06/19/21 07:43 Oxycodone HCl (Roxicodone, Oxyir) 5 mg Q4HP PRN PO MODERATE PAIN (PS 5-7) 06/13/21 14:10 06/17/21 07:26 DC 06/16/21 20:50 Oxycodone HCl (Roxicodone, Oxyir) 5 mg Q8H PRN PO PAIN 7-10 06/17/21 07:30 06/18/21 21:03 Potassium Chloride (Micro-K Extencaps) 10 meq BID PO 06/13/21 21:00 06/19/21 07:40 Sertraline HCl (Zoloft) 100 mg DAILY PO 06/14/21 09:00 06/19/21 07:42 Vancomycin HCl (First-Vancomycin 50(Firvanq)- 250mg/5ml) 125 mg Q6H PO 06/13/21 18:00 06/19/21 12:01 06/19/21 05:59 JANELLE CHUN MD Jun 19, 2021 10:26
[2021-06-19 14:00] VITALS: BP 100/56
[2021-06-19 20:00] VITALS: BP 100/58
[2021-06-20 06:00] VITALS: BP 122/65
[2021-06-20] MEDS: ATORVASTATIN 20 MG TAB PO SCH (07:42)
[2021-06-20] MEDS: SERTRALINE 100 MG TAB PO SCH (07:42)
[2021-06-20] MEDS: METOPROLOL TART 12.5 MG PER 1/2 TAB PO SCH ×2 (07:42→20:37)
[2021-06-20] MEDS: allopurinoL 300 MG TAB PO SCH (07:42)
[2021-06-20] MEDS: ALPRAZolam 0.25 MG TAB PO SCH (07:42)
[2021-06-20] MEDS: MULTIVITAMINS/MINERALS THERAP 1 TAB PO SCH (07:42)
[2021-06-20] MEDS: POTASSIUM CHLORIDE 10 MEQ SR TABLET PO SCH ×2 (07:42→20:35)
[2021-06-20] MEDS: LACTOBACILLUS ACIDOPHILUS CAP (BACID) PO SCH ×4 (07:43→20:36)
[2021-06-20] MEDS: oxyCODONE 5MG TAB PO SCH ×2 (07:43→12:02)
[2021-06-20] MEDS: FUROSEMIDE 20 MG TAB PO SCH (07:43)
[2021-06-20] MEDS: APIXABAN 5 MG TAB (ELIQUIS) PO SCH ×2 (07:43→20:35)
[2021-06-20] MEDS: ACETAMINOPHEN 500 MG TAB PO SCH ×3 (07:45→20:36)
[2021-06-20] MEDS: REMEDY PHYTOPLEX Z-GUARD PASTE 113GM TUBE (FROM STOREROOM PRODUCT) TOP SCH ×3 (07:50→20:36)
--- NOTE | 2021-06-20 12:14 | IPNPDOC ---
PM&R Progress Note DATE OF SERVICE: Jun 20, 2021 [employer] Agent Progress Note Subjective: Patient reporting she is very upset being on a fluid restriction and wants to be able to drink 2 dahlia ales a day. REVIEW OF SYSTEMS: The following is a completed review of systems and has been reviewed. Review of systems otherwise unremarkable. PAIN: Patient self reports no pain EYES: No recent vision changes EARS, NOSE, & THROAT: No throat pain, or dysphagia, or rhinorrhea CARDIOVASCULAR: Denies chest pain or palpitations PULMONARY: Denies shortness of breath GASTROINTESTINAL: Denies constipation/diarrhea GENITOURINARY:denies dysuria or incontinence MUSCULOSKELETAL: bilat LE weakness (improving) NEUROLOGICAL: denies tremor or paresthesias HEMATOLOGICAL: denies easy bruising SKIN: denies rash PSYCHIATRIC: Unremarkable All other review of systems found to be negative. PHYSICAL EXAMINATION: VITAL SIGNS: Please see below. GENERAL: Pleasant and cooperative. No acute distress. HEENT: PERRL. Extraocular movements intact. Clear conjunctiva CARDIOVASCULAR: Regular rate and rhythm. No murmurs, rubs, or gallops LUNGS: Clear to auscultation bilaterally. No wheezes. No rhonchi ABDOMEN: Soft, nontender, nondistended. Positive bowel sounds. Normal active bowel sounds NEUROLOGICAL: Alert and oriented times three. Cranial nerves II through XII grossly intact. Sensation grossly intact all 4 limbs. EXTREMITIES: 5\\5 strength bilateral upper extremities. 4\\5 strength right lower extremity. 5-/5 strength in left lower extremity. bilat LE edema SKIN: anterior neck incision with steri-strips, c/d/i ASSESSMENT:76-year-old F with past medical history of cervical stenosis with bilat LE weakness who presents status post cervical decompression surgery PLAN: 1. Rehab- PT/OT advance mobility and ADLs, strengthen/stretch/maintain ROM al 4limbs, avoid strenuous activity- ambulating with RW 2. Neuro- cervical stenosis with LE weakness causing significant gait impairment, s/p C5-C6 C6-C7 discectomy with fusion and cage, f/u with Dr. Pereira at [facility] at d/c 3. Cardiac- hx of HTN, cont BP meds -HLD- cont statin -patient with bilat edema, patient is adamant about not being on fluid restriction and will not adhere to a low salt diet, will stop fluid restriction and increase lasix dosing given persistent edema on exam -medicine consulted to assist in overall management 4. Resp- monitor for infection 5. GI- cont vancomycin for C diff infection for 2 weeks total, will avoid PPIs as can contribute to C diff infection, and will hold off on magnesium supplements, Mg levels WNL, cont bacid 6. DVT- There is ultrasonographic evidence of deep venous thrombosis involving the popliteal vein bilaterally and the mid to distal right femoral vein as described above." results obtained 06-15-21, case discussed with Dr. Luu the on-call surgeon at [facility] who discussed with Dr. Pereira who said ok to treat VTE, CTA was ordered to r/o PE, but patient was difficult venous stick with multiple attempts made including with US, given treatment for PE and DVT is the same, patient started on Eliquis 10mg BID x 7 days to be followed by 5mg BID for at least 3 months, to be followed-up by PMD- discussed DVT findings and treatment with on- call hospitalist 7. Psych- zoloft and xanax for depression/anxiety 8. Pain- tylenol and oxycodone 9. Dispo- tbd Allergies Coded Allergies: No Known Allergies (Unverified , 04/26/21) Vital Signs Vital Signs Date Time Temp Pulse Resp B/P (MAP) Pulse Ox O2 Delivery O2 Flow Rate FiO2 06/20/21 12:02 16 06/20/21 07:42 89 122/65 06/20/21 06:00 97.4 95 Room Air Current Medications Current Medications Current Medications Medications (Trade) Dose Ordered Sig/Lou Route PRN Reason Start Time Stop Time Status Last Admin Dose Admin Acetaminophen (Tylenol Tab) 1,000 mg TID PO 06/13/21 21:00 06/20/21 07:45 Allopurinol (Zyloprim) 300 mg DAILY PO 06/14/21 09:00 06/20/21 07:42 Alprazolam (Xanax) 0.25 mg DAILY PO 06/14/21 09:00 06/20/21 07:42 Apixaban (Eliquis) 5 mg BID PO 06/22/21 21:00 Apixaban (Eliquis) 10 mg BID PO 06/15/21 21:00 06/22/21 09:01 06/20/21 07:43 Atorvastatin Calcium (Lipitor) 40 mg DAILY PO 06/14/21 09:00 06/20/21 07:42 Furosemide (Lasix) 20 mg DAILY PO 06/15/21 09:00 06/20/21 07:43 Home Med (Med Rec Complete!) ASDIRECTED XX 06/13/21 18:10 06/13/21 18:24 DC Lactobacillus Acidophilus (Bacid) 1 ea WMHS PO 06/14/21 18:00 06/20/21 12:02 Magnesium Oxide (Mag-Ox) 400 mg DAILY PO 06/14/21 09:00 06/14/21 15:00 DC Metoprolol Succinate (TopROL XL) 25 mg DAILY PO 06/14/21 09:00 06/14/21 16:01 DC Metoprolol Tartrate (Lopressor) 12.5 mg BID PO 06/18/21 09:00 06/20/21 07:42 Metoprolol Tartrate (Lopressor) 25 mg Q8H PO 06/14/21 14:00 06/18/21 07:18 DC 06/17/21 14:36 Miscellaneous (Unresolved Clarification Entry) SEE LABEL COMMENTS DAILY XX 06/15/21 09:00 06/15/21 21:41 DC Multivitamins (Theragram-M) 1 tab DAILY PO 06/14/21 09:00 06/20/21 07:42 Omeprazole (PriLOSEC) 40 mg DAILY PO 06/14/21 09:00 06/14/21 15:01 DC 06/14/21 09:47 Oxycodone HCl (Roxicodone, Oxyir) 5 mg 0800,1300 PO 06/17/21 08:00 06/20/21 12:02 Oxycodone HCl (Roxicodone, Oxyir) 5 mg Q4HP PRN PO MODERATE PAIN (PS 5-7) 06/13/21 14:10 06/17/21 07:26 DC 06/16/21 20:50 Oxycodone HCl (Roxicodone, Oxyir) 5 mg Q8H PRN PO PAIN 7-10 06/17/21 07:30 06/18/21 21:03 Potassium Chloride (Micro-K Extencaps) 10 meq BID PO 06/13/21 21:00 06/20/21 07:42 Sertraline HCl (Zoloft) 100 mg DAILY PO 06/14/21 09:00 06/20/21 07:42 Vancomycin HCl (First-Vancomycin 50(Firvanq)- 250mg/5ml) 125 mg Q6H PO 06/13/21 18:00 06/19/21 12:01 DC 06/19/21 12:07 JANELLE CHUN MD Jun 20, 2021 12:14
[2021-06-20 14:00] VITALS: BP 126/60
[2021-06-20] MEDS: LIDOCAINE 5% (LIDODERM) PATCH TD SCH (14:24)
[2021-06-20 20:00] VITALS: BP 106/54
[2021-06-20] MEDS: **NOTE PATIENT COMMENT** MISC XX SCH (20:36)
[2021-06-21 06:00] VITALS: BP 104/62
[2021-06-21 07:00] LABS: BASO # 0.1 10^3/uL (0.0-0.2); BASO % 0.9 % (0.0-1.0); EOS # 0.1 10^3/uL (0.0-0.5); EOS % 1.9 % (0.0-3.0); HEMATOCRIT 32.7 % (36.0-47.0); HEMOGLOBIN 10.3 g/dl (12.0-15.5); LYMPH # 1.6 10^3/uL (1.5-5.0); MEAN CORPUSCULAR HEMOGLOBIN 30.4 pg (27.0-33.0); MEAN CORPUSCULAR HGB CONC 31.5 g/dl (32.0-36.5); MEAN CORPUSCULAR VOLUME 96.5 fl (80.0-96.0); MONO # 0.5 10^3/uL (0.0-0.8); MONO % 6.7 % (2.0-8.0); NEUTROPHILS # 4.4 10^3/uL (1.5-8.5); NEUTROPHILS % 65.5 % (36.0-66.0); PLATELET COUNT, AUTOMATED 377 10^3/uL (150-450); RED BLOOD COUNT 3.39 10^6/uL (4.00-5.40); WHITE BLOOD COUNT 6.7 10^3/uL (4.0-10.0)
[2021-06-21 07:28] LABS: BLOOD UREA NITROGEN 12 MG/DL (7-18); CALCIUM LEVEL 8.2 MG/DL (8.8-10.2); CARBON DIOXIDE LEVEL 27 MEQ/L (21-32); CHLORIDE LEVEL 114 MEQ/L (98-107); CREATININE FOR GFR 0.42 MG/DL (0.55-1.30); GLOMERULAR FILTRATION RATE > 60.0 (>39); GLUCOSE, FASTING 76 MG/DL (70-100); POTASSIUM SERUM 4.2 MEQ/L (3.5-5.1); SODIUM LEVEL 147 MEQ/L (136-145)
[2021-06-21] MEDS: LIDOCAINE 5% (LIDODERM) PATCH TD SCH (08:18)
[2021-06-21] MEDS: ATORVASTATIN 20 MG TAB PO SCH (08:19)
[2021-06-21] MEDS: ACETAMINOPHEN 500 MG TAB PO SCH ×3 (08:19→21:12)
[2021-06-21] MEDS: FUROSEMIDE 40 MG TAB PO SCH (08:20)
[2021-06-21] MEDS: ALPRAZolam 0.25 MG TAB PO SCH (08:20)
[2021-06-21] MEDS: APIXABAN 5 MG TAB (ELIQUIS) PO SCH ×2 (08:20→21:13)
[2021-06-21] MEDS: LACTOBACILLUS ACIDOPHILUS CAP (BACID) PO SCH ×4 (08:20→21:12)
[2021-06-21] MEDS: allopurinoL 300 MG TAB PO SCH (08:22)
[2021-06-21] MEDS: POTASSIUM CHLORIDE 10 MEQ SR TABLET PO SCH ×2 (08:22→21:12)
[2021-06-21] MEDS: oxyCODONE 5MG TAB PO SCH ×2 (08:22→12:52)
[2021-06-21] MEDS: SERTRALINE 100 MG TAB PO SCH (08:22)
[2021-06-21] MEDS: MULTIVITAMINS/MINERALS THERAP 1 TAB PO SCH (08:22)
[2021-06-21] MEDS: REMEDY PHYTOPLEX Z-GUARD PASTE 113GM TUBE (FROM STOREROOM PRODUCT) TOP SCH ×3 (08:23→21:00)
[2021-06-21] MEDS: METOPROLOL TART 12.5 MG PER 1/2 TAB PO SCH ×2 (08:24→21:00)
--- NOTE | 2021-06-21 10:03 | IPNPDOC ---
PM&R Progress Note DATE OF SERVICE: Jun 21, 2021 [employer] Progress Note Subjective: Patient stating she is feeling well and denies being light headed or weak. REVIEW OF SYSTEMS: The following is a completed review of systems and has been reviewed. Review of systems otherwise unremarkable. PAIN: Patient self reports no pain EYES: No recent vision changes EARS, NOSE, & THROAT: No throat pain, or dysphagia, or rhinorrhea CARDIOVASCULAR: Denies chest pain or palpitations PULMONARY: Denies shortness of breath GASTROINTESTINAL: Denies constipation/diarrhea GENITOURINARY:denies dysuria or incontinence MUSCULOSKELETAL: bilat LE weakness (improving) NEUROLOGICAL: denies tremor or paresthesias HEMATOLOGICAL: denies easy bruising SKIN: denies rash PSYCHIATRIC: Unremarkable All other review of systems found to be negative. PHYSICAL EXAMINATION: VITAL SIGNS: Please see below. GENERAL: Pleasant and cooperative. No acute distress. HEENT: PERRL. Extraocular movements intact. Clear conjunctiva CARDIOVASCULAR: Regular rate and rhythm. No murmurs, rubs, or gallops LUNGS: Clear to auscultation bilaterally. No wheezes. No rhonchi ABDOMEN: Soft, nontender, nondistended. Positive bowel sounds. Normal active bowel sounds NEUROLOGICAL: Alert and oriented times three. Cranial nerves II through XII grossly intact. Sensation grossly intact all 4 limbs. EXTREMITIES: 5\\5 strength bilateral upper extremities. 4\\5 strength right lower extremity. 5-/5 strength in left lower extremity. bilat LE edema SKIN: anterior neck incision with steri-strips, c/d/i ASSESSMENT:76-year-old F with past medical history of cervical stenosis with bi lat LE weakness who presents status post cervical decompression surgery PLAN: 1. Rehab- PT/OT advance mobility and ADLs, strengthen/stretch/maintain ROM al 4limbs, avoid strenuous activity- ambulating with RW 2. Neuro- cervical stenosis with LE weakness causing significant gait impairment, s/p C5-C6 C6-C7 discectomy with fusion and cage, f/u with Dr. Pereira at [facility] at d/c 3. Cardiac- hx of HTN, cont BP meds -HLD- cont statin -patient with bilat edema, patient is adamant about not being on fluid restriction and will not adhere to a low salt diet, will stop fluid restriction and increase lasix dosing given persistent edema on exam -medicine consulted to assist in overall management 4. Resp- monitor for infection 5. GI- cont vancomycin for C diff infection for 2 weeks total, and will hold off on magnesium supplements, Mg levels WNL, cont bacid -given drop in Hgb and concern for possible GI bleed, will start protonix -FOBT ordered 6. DVT- There is ultrasonographic evidence of deep venous thrombosis involving the popliteal vein bilaterally and the mid to distal right femoral vein as described above." results obtained 06-15-21, case discussed with Dr. Luu the on-call surgeon at [facility] who discussed with Dr. Pereira who said ok to treat VTE, CTA was ordered to r/o PE, but patient was difficult venous stick with multiple attempts made including with US, given treatment for PE and DVT is the same, patient started on Eliquis 10mg BID x 7 days to be followed by 5mg BID for at least 3 months, to be followed-up by PMD- discussed DVT findings and treatment with on- call hospitalist 7. Psych- zoloft and xanax for depression/anxiety 8. Pain- tylenol and oxycodone 9. Dispo- tbd Allergies Coded Allergies: No Known Allergies (Unverified , 04/26/21) Vital Signs Vital Signs Date Time Temp Pulse Resp B/P (MAP) Pulse Ox O2 Delivery O2 Flow Rate FiO2 06/21/21 08:55 18 Room Air 06/21/21 08:24 88 102/60 06/21/21 06:00 98.7 96 Laboratory Data CBC/BMP Laboratory Tests 06/21/21 06:44 Labs 24H Laboratory Tests 2 06/21/21 06:44: Immature Granulocyte % (Auto) 1.0, Neutrophils (%) (Auto) 65.5, Lymphocytes (%) (Auto) 24.0, Monocytes (%) (Auto) 6.7, Eosinophils (%) (Auto) 1.9, Basophils (%) (Auto) 0.9, Neutrophils # (Auto) 4.4, Lymphocytes # (Auto) 1.6, Monocytes # (Auto) 0.5, Eosinophils # (Auto) 0.1, Basophils # (Auto) 0.1, Nucleated Red Blood Cells % (auto) 0.0, Anion Gap 6L, Glomerular Filtration Rate > 60.0, Calcium Level 8.2L Current Medications Current Medications Current Medications Medications (Trade) Dose Ordered Sig/Lou Route PRN Reason Start Time Stop Time Status Last Admin Dose Admin Acetaminophen (Tylenol Tab) 1,000 mg TID PO 06/13/21 21:00 06/21/21 08:19 Allopurinol (Zyloprim) 300 mg DAILY PO 06/14/21 09:00 06/21/21 08:22 Alprazolam (Xanax) 0.25 mg DAILY PO 06/14/21 09:00 06/21/21 08:20 Apixaban (Eliquis) 5 mg BID PO 06/22/21 21:00 Apixaban (Eliquis) 10 mg BID PO 06/15/21 21:00 06/22/21 09:01 06/21/21 08:20 Atorvastatin Calcium (Lipitor) 40 mg DAILY PO 06/14/21 09:00 06/21/21 08:19 Furosemide (Lasix) 20 mg DAILY PO 06/15/21 09:00 06/20/21 12:12 DC 06/20/21 07:43 Furosemide (Lasix) 40 mg DAILY PO 06/21/21 09:00 06/21/21 08:20 Home Med (Med Rec Complete!) ASDIRECTED XX 06/13/21 18:10 06/13/21 18:24 DC Lactobacillus Acidophilus (Bacid) 1 ea WMHS PO 06/14/21 18:00 06/21/21 08:20 Lidocaine (Lidoderm Patch) 2 patch DAILY TD 06/20/21 09:00 06/21/21 08:18 Magnesium Oxide (Mag-Ox) 400 mg DAILY PO 06/14/21 09:00 06/14/21 15:00 DC Metoprolol Succinate (TopROL XL) 25 mg DAILY PO 06/14/21 09:00 06/14/21 16:01 DC Metoprolol Tartrate (Lopressor) 12.5 mg BID PO 06/18/21 09:00 06/20/21 07:42 Metoprolol Tartrate (Lopressor) 25 mg Q8H PO 06/14/21 14:00 06/18/21 07:18 DC 06/17/21 14:36 Miscellaneous (Unresolved Clarification Entry) SEE LABEL COMMENTS DAILY XX 06/15/21 09:00 06/15/21 21:41 DC Multivitamins (Theragram-M) 1 tab DAILY PO 06/14/21 09:00 06/21/21 08:22 Non-Formulary Medication ( See Comment Field Below ) REMOVE LIDODERM PATCH DAILY@21 XX 06/20/21 21:00 06/20/21 20:36 Omeprazole (PriLOSEC) 40 mg DAILY PO 06/14/21 09:00 06/14/21 15:01 DC 06/14/21 09:47 Oxycodone HCl (Roxicodone, Oxyir) 5 mg 0800,1300 PO 06/17/21 08:00 06/21/21 08:22 Oxycodone HCl (Roxicodone, Oxyir) 5 mg Q4HP PRN PO MODERATE PAIN (PS 5-7) 06/13/21 14:10 06/17/21 07:26 DC 06/16/21 20:50 Oxycodone HCl (Roxicodone, Oxyir) 5 mg Q8H PRN PO PAIN 7-10 06/17/21 07:30 06/18/21 21:03 Potassium Chloride (Micro-K Extencaps) 10 meq BID PO 06/13/21 21:00 06/21/21 08:22 Sertraline HCl (Zoloft) 100 mg DAILY PO 06/14/21 09:00 06/21/21 08:22 Vancomycin HCl (First-Vancomycin 50(Firvanq)- 250mg/5ml) 125 mg Q6H PO 06/13/21 18:00 06/19/21 12:01 DC 06/19/21 12:07 JANELLE CHUN MD Jun 21, 2021 10:03
[2021-06-21] MEDS: PANTOPRAZOLE 40MG TAB (PROTONIX) PO SCH (11:04)
[2021-06-21 14:00] VITALS: BP 120/65
[2021-06-21 20:00] VITALS: BP 92/58
[2021-06-21] MEDS: **NOTE PATIENT COMMENT** MISC XX SCH (21:14)
[2021-06-22 06:00] VITALS: BP 120/61
[2021-06-22] MEDS: LACTOBACILLUS ACIDOPHILUS CAP (BACID) PO SCH ×4 (08:03→20:28)
[2021-06-22] MEDS: ALPRAZolam 0.25 MG TAB PO SCH (08:03)
[2021-06-22] MEDS: ACETAMINOPHEN 500 MG TAB PO SCH ×3 (08:03→20:29)
[2021-06-22] MEDS: FUROSEMIDE 40 MG TAB PO SCH (08:03)
[2021-06-22] MEDS: SERTRALINE 100 MG TAB PO SCH (08:03)
[2021-06-22] MEDS: ATORVASTATIN 20 MG TAB PO SCH (08:03)
[2021-06-22] MEDS: POTASSIUM CHLORIDE 10 MEQ SR TABLET PO SCH ×2 (08:03→20:29)
[2021-06-22] MEDS: allopurinoL 300 MG TAB PO SCH (08:04)
[2021-06-22] MEDS: oxyCODONE 5MG TAB PO SCH ×2 (08:04→13:07)
[2021-06-22] MEDS: MULTIVITAMINS/MINERALS THERAP 1 TAB PO SCH (08:04)
[2021-06-22] MEDS: APIXABAN 5 MG TAB (ELIQUIS) PO SCH ×2 (08:04→20:29)
[2021-06-22] MEDS: LIDOCAINE 5% (LIDODERM) PATCH TD SCH (08:05)
[2021-06-22] MEDS: METOPROLOL TART 12.5 MG PER 1/2 TAB PO SCH ×2 (08:07→20:29)
[2021-06-22] MEDS: PANTOPRAZOLE 40MG TAB (PROTONIX) PO SCH (08:07)
[2021-06-22] MEDS: REMEDY PHYTOPLEX Z-GUARD PASTE 113GM TUBE (FROM STOREROOM PRODUCT) TOP SCH ×3 (08:14→20:30)
[2021-06-22 14:00] VITALS: BP 108/56
[2021-06-22] MEDS: **NOTE PATIENT COMMENT** MISC XX SCH (20:30)
[2021-06-22 22:00] VITALS: BP 106/55
[2021-06-23 06:00] VITALS: BP 112/55
[2021-06-23 08:25] LABS: BLOOD UREA NITROGEN 11 MG/DL (7-18); CALCIUM LEVEL 8.1 MG/DL (8.8-10.2); CARBON DIOXIDE LEVEL 25 MEQ/L (21-32); CHLORIDE LEVEL 114 MEQ/L (98-107); GLOMERULAR FILTRATION RATE > 60.0 (>39); GLUCOSE, FASTING 80 MG/DL (70-100); POTASSIUM SERUM 3.8 MEQ/L (3.5-5.1); SODIUM LEVEL 147 MEQ/L (136-145)
[2021-06-23] MEDS: LACTOBACILLUS ACIDOPHILUS CAP (BACID) PO SCH ×4 (08:42→20:22)
[2021-06-23] MEDS: APIXABAN 5 MG TAB (ELIQUIS) PO SCH ×2 (08:44→20:22)
[2021-06-23] MEDS: METOPROLOL TART 12.5 MG PER 1/2 TAB PO SCH ×2 (08:44→20:21)
[2021-06-23] MEDS: ACETAMINOPHEN 500 MG TAB PO SCH ×3 (08:45→20:22)
[2021-06-23] MEDS: MULTIVITAMINS/MINERALS THERAP 1 TAB PO SCH (08:45)
[2021-06-23] MEDS: ALPRAZolam 0.25 MG TAB PO SCH (08:45)
[2021-06-23] MEDS: POTASSIUM CHLORIDE 10 MEQ SR TABLET PO SCH ×2 (08:45→20:22)
[2021-06-23] MEDS: FUROSEMIDE 40 MG TAB PO SCH (08:45)
[2021-06-23] MEDS: oxyCODONE 5MG TAB PO SCH ×2 (08:46→12:17)
[2021-06-23] MEDS: ATORVASTATIN 20 MG TAB PO SCH (08:46)
[2021-06-23] MEDS: allopurinoL 300 MG TAB PO SCH (08:47)
[2021-06-23] MEDS: REMEDY PHYTOPLEX Z-GUARD PASTE 113GM TUBE (FROM STOREROOM PRODUCT) TOP SCH ×3 (08:47→20:22)
[2021-06-23] MEDS: LIDOCAINE 5% (LIDODERM) PATCH TD SCH (08:47)
[2021-06-23] MEDS: PANTOPRAZOLE 40MG TAB (PROTONIX) PO SCH (08:47)
[2021-06-23] MEDS: SERTRALINE 100 MG TAB PO SCH (08:47)
[2021-06-23 14:00] VITALS: BP 116/70
[2021-06-23 20:00] VITALS: BP 106/56
[2021-06-23] MEDS: **NOTE PATIENT COMMENT** MISC XX SCH (20:23)
--- NOTE | 2021-06-23 22:10 | IPNPDOC ---
PM&R Progress Note DATE OF SERVICE: Jun 22, 2021 [employer] Monitor Progress Note Subjective: Patient stating she is happy to be able to drink her dahlia lesa again and that she doesn't notice that her legs are swollen nor is she bothered by it. She r eports being in good spirits and feels she has the support she needs at home. REVIEW OF SYSTEMS: The following is a completed review of systems and has been reviewed. Review of systems otherwise unremarkable. PAIN: Patient self reports no pain EYES: No recent vision changes EARS, NOSE, & THROAT: No throat pain, or dysphagia, or rhinorrhea CARDIOVASCULAR: Denies chest pain or palpitations PULMONARY: Denies shortness of breath GASTROINTESTINAL: Denies constipation/diarrhea GENITOURINARY:denies dysuria or incontinence MUSCULOSKELETAL: bilat LE weakness (improving) NEUROLOGICAL: denies tremor or paresthesias HEMATOLOGICAL: denies easy bruising SKIN: denies rash PSYCHIATRIC: Unremarkable All other review of systems found to be negative. PHYSICAL EXAMINATION: VITAL SIGNS: Please see below. GENERAL: Pleasant and cooperative. No acute distress. HEENT: PERRL. Extraocular movements intact. Clear conjunctiva CARDIOVASCULAR: Regular rate and rhythm. No murmurs, rubs, or gallops LUNGS: Clear to auscultation bilaterally. No wheezes. No rhonchi ABDOMEN: Soft, nontender, nondistended. Positive bowel sounds. Normal active bowel sounds NEUROLOGICAL: Alert and oriented times three. Cranial nerves II through XII grossly intact. Sensation grossly intact all 4 limbs. EXTREMITIES: 5\\5 strength bilateral upper extremities. 4\\5 strength right lower extremity. 5-/5 strength in left lower extremity. bilat LE edema SKIN: anterior neck incision with steri-strips, c/d/i ASSESSMENT:76-year-old F with past medical history of cervical stenosis with bilat LE weakness who presents status post cervical decompression surgery PLAN: 1. Rehab- PT/OT advance mobility and ADLs, strengthen/stretch/maintain ROM al 4limbs, avoid strenuous activity- ambulating with RW 2. Neuro- cervical stenosis with LE weakness causing significant gait impairment, s/p C5-C6 C6-C7 discectomy with fusion and cage, f/u with Dr. Pereira at [facility] at d/c 3. Cardiac- hx of HTN, cont BP meds -HLD- cont statin -patient with bilat edema, patient is adamant about not being on fluid restriction and will not adhere to a low salt diet, will stop fluid restriction and increase lasix dosing given persistent edema on exam -medicine consulted to assist in overall management 4. Resp- monitor for infection 5. GI- s/p course of vancomycin for C diff infection for 2 weeks total, and will hold off on magnesium supplements, Mg levels WNL, cont bacid -FOBT negative, will cont protonix now that patient is on blood thinner, she has a reported history of hemorrhoids 6. DVT- There is ultrasonographic evidence of deep venous thrombosis involving the popliteal vein bilaterally and the mid to distal right femoral vein as described above." results obtained 06-15-21, case discussed with Dr. Luu the on-call surgeon at [facility] who discussed with Dr. Pereira who said ok to treat VTE, CTA was ordered to r/o PE, but patient was difficult venous stick with multiple attempts made including with US, given treatment for PE and DVT is the same, patient started on Eliquis 10mg BID x 7 days to be followed by 5mg BID for at least 3 months, to be followed-up by PMD- discussed DVT findings and treatment with on- call hospitalist 7. Psych- zoloft and xanax for depression/anxiety 8. Pain- tylenol and oxycodone 9. Dispo- 06-27-21 to home, progressing towards goals Allergies Coded Allergies: No Known Allergies (Unverified , 04/26/21) Vital Signs Vital Signs Date Time Temp Pulse Resp B/P (MAP) Pulse Ox O2 Delivery O2 Flow Rate FiO2 06/23/21 20:21 98 106/56 06/23/21 20:00 97.3 17 95 Room Air Laboratory Data CBC/BMP Laboratory Tests 06/23/21 07:36 Labs 24H Laboratory Tests 2 06/23/21 07:36: Anion Gap 8, Glomerular Filtration Rate > 60.0, Calcium Level 8.1L Microbiology Microbiology 06/21/21 Stool Occult Blood (RIKA) - Final, Complete Current Medications Current Medications Current Medications Medications (Trade) Dose Ordered Sig/Lou Route PRN Reason Start Time Stop Time Status Last Admin Dose Admin Acetaminophen (Tylenol Tab) 1,000 mg TID PO 06/13/21 21:00 06/23/21 20:22 Allopurinol (Zyloprim) 300 mg DAILY PO 06/14/21 09:00 06/23/21 08:47 Alprazolam (Xanax) 0.25 mg DAILY PO 06/14/21 09:00 06/23/21 08:45 Apixaban (Eliquis) 5 mg BID PO 06/22/21 21:00 06/23/21 20:22 Apixaban (Eliquis) 10 mg BID PO 06/15/21 21:00 06/22/21 09:01 DC 06/22/21 08:04 Atorvastatin Calcium (Lipitor) 40 mg DAILY PO 06/14/21 09:00 06/23/21 08:46 Furosemide (Lasix) 20 mg DAILY PO 06/15/21 09:00 06/20/21 12:12 DC 06/20/21 07:43 Furosemide (Lasix) 40 mg DAILY PO 06/21/21 09:00 06/23/21 08:45 Home Med (Med Rec Complete!) ASDIRECTED XX 06/13/21 18:10 06/13/21 18:24 DC Lactobacillus Acidophilus (Bacid) 1 ea WMHS PO 06/14/21 18:00 06/23/21 20:22 Lidocaine (Lidoderm Patch) 2 patch DAILY TD 06/20/21 09:00 06/23/21 08:47 Magnesium Oxide (Mag-Ox) 400 mg DAILY PO 06/14/21 09:00 06/14/21 15:00 DC Metoprolol Succinate (TopROL XL) 25 mg DAILY PO 06/14/21 09:00 06/14/21 16:01 DC Metoprolol Tartrate (Lopressor) 12.5 mg BID PO 06/18/21 09:00 06/22/21 08:07 Metoprolol Tartrate (Lopressor) 25 mg Q8H PO 06/14/21 14:00 06/18/21 07:18 DC 06/17/21 14:36 Miscellaneous (Unresolved Clarification Entry) SEE LABEL COMMENTS DAILY XX 06/15/21 09:00 06/15/21 21:41 DC Multivitamins (Theragram-M) 1 tab DAILY PO 06/14/21 09:00 06/23/21 08:45 Non-Formulary Medication ( See Comment Field Below ) REMOVE LIDODERM PATCH DAILY@ XX 06/20/21 21:00 06/23/21 20:23 Omeprazole (PriLOSEC) 40 mg DAILY PO 06/14/21 09:00 06/14/21 15:01 DC 06/14/21 09:47 Oxycodone HCl (Roxicodone, Oxyir) 5 mg 0800,1300 PO 06/17/21 08:00 06/23/21 12:17 Oxycodone HCl (Roxicodone, Oxyir) 5 mg Q4HP PRN PO MODERATE PAIN (PS 5-7) 06/13/21 14:10 06/17/21 07:26 DC 06/16/21 20:50 Oxycodone HCl (Roxicodone, Oxyir) 5 mg Q8H PRN PO PAIN 7-10 06/17/21 07:30 06/18/21 21:03 Pantoprazole Sodium (Protonix) 40 mg DAILY PO 06/21/21 10:15 06/23/21 08:47 Potassium Chloride (Micro-K Extencaps) 10 meq BID PO 06/13/21 21:00 06/23/21 20:22 Sertraline HCl (Zoloft) 100 mg DAILY PO 06/14/21 09:00 06/23/21 08:47 Vancomycin HCl (First-Vancomycin 50(Firvanq)- 250mg/5ml) 125 mg Q6H PO 06/13/21 18:00 06/19/21 12:01 DC 06/19/21 12:07 JANELLE CHUN MD Jun 23, 2021 22:10
[2021-06-24 06:00] VITALS: BP 132/75
[2021-06-24] MEDS: LIDOCAINE 5% (LIDODERM) PATCH TD SCH (08:37)
[2021-06-24] MEDS: POTASSIUM CHLORIDE 10 MEQ SR TABLET PO SCH ×2 (08:37→20:09)
[2021-06-24] MEDS: SERTRALINE 100 MG TAB PO SCH (08:37)
[2021-06-24] MEDS: MULTIVITAMINS/MINERALS THERAP 1 TAB PO SCH (08:37)
[2021-06-24] MEDS: APIXABAN 5 MG TAB (ELIQUIS) PO SCH ×2 (08:37→20:09)
[2021-06-24] MEDS: ALPRAZolam 0.25 MG TAB PO SCH (08:38)
[2021-06-24] MEDS: PANTOPRAZOLE 40MG TAB (PROTONIX) PO SCH (08:38)
[2021-06-24] MEDS: ATORVASTATIN 20 MG TAB PO SCH (08:38)
[2021-06-24] MEDS: ACETAMINOPHEN 500 MG TAB PO SCH ×3 (08:38→20:09)
[2021-06-24] MEDS: allopurinoL 300 MG TAB PO SCH (08:38)
[2021-06-24] MEDS: FUROSEMIDE 40 MG TAB PO SCH (08:38)
[2021-06-24] MEDS: METOPROLOL TART 12.5 MG PER 1/2 TAB PO SCH ×2 (08:39→19:40)
[2021-06-24] MEDS: oxyCODONE 5MG TAB PO SCH ×2 (08:39→12:31)
[2021-06-24] MEDS: LACTOBACILLUS ACIDOPHILUS CAP (BACID) PO SCH ×4 (08:40→20:09)
[2021-06-24] MEDS: REMEDY PHYTOPLEX Z-GUARD PASTE 113GM TUBE (FROM STOREROOM PRODUCT) TOP SCH ×3 (08:44→19:41)
[2021-06-24 14:00] VITALS: BP 110/57
[2021-06-24] MEDS: **NOTE PATIENT COMMENT** MISC XX SCH (19:41)
[2021-06-24 20:00] VITALS: BP 113/56
[2021-06-25 06:00] VITALS: BP 130/74
[2021-06-25] MEDS: LIDOCAINE 5% (LIDODERM) PATCH TD SCH (08:31)
[2021-06-25] MEDS: ATORVASTATIN 20 MG TAB PO SCH (08:32)
[2021-06-25] MEDS: oxyCODONE 5MG TAB PO SCH ×2 (08:32→12:23)
[2021-06-25] MEDS: SERTRALINE 100 MG TAB PO SCH (08:32)
[2021-06-25] MEDS: ACETAMINOPHEN 500 MG TAB PO SCH ×3 (08:32→21:00)
[2021-06-25] MEDS: ALPRAZolam 0.25 MG TAB PO SCH (08:32)
[2021-06-25] MEDS: APIXABAN 5 MG TAB (ELIQUIS) PO SCH ×2 (08:32→21:01)
[2021-06-25] MEDS: POTASSIUM CHLORIDE 10 MEQ SR TABLET PO SCH ×2 (08:32→21:00)
[2021-06-25] MEDS: MULTIVITAMINS/MINERALS THERAP 1 TAB PO SCH (08:32)
[2021-06-25] MEDS: METOPROLOL TART 12.5 MG PER 1/2 TAB PO SCH ×2 (08:33→21:00)
[2021-06-25] MEDS: LACTOBACILLUS ACIDOPHILUS CAP (BACID) PO SCH ×4 (08:33→21:00)
[2021-06-25] MEDS: allopurinoL 300 MG TAB PO SCH (08:33)
[2021-06-25] MEDS: PANTOPRAZOLE 40MG TAB (PROTONIX) PO SCH (08:33)
[2021-06-25] MEDS: REMEDY PHYTOPLEX Z-GUARD PASTE 113GM TUBE (FROM STOREROOM PRODUCT) TOP SCH ×3 (08:34→21:00)
[2021-06-25] MEDS: FUROSEMIDE 40 MG TAB PO SCH (10:18)
[2021-06-25 14:00] VITALS: BP 116/64
[2021-06-25 20:00] VITALS: BP 100/55
[2021-06-25] MEDS: **NOTE PATIENT COMMENT** MISC XX SCH (21:01)
[2021-06-26 06:00] VITALS: BP 121/56
[2021-06-26 07:27] LABS: BASO % 0.8 % (0.0-1.0); EOS # 0.1 10^3/uL (0.0-0.5); EOS % 2.2 % (0.0-3.0); HEMATOCRIT 35.5 % (36.0-47.0); HEMOGLOBIN 11.2 g/dl (12.0-15.5); LYMPH # 1.5 10^3/uL (1.5-5.0); LYMPH % 29.6 % (24.0-44.0); MEAN CORPUSCULAR HEMOGLOBIN 30.7 pg (27.0-33.0); MEAN CORPUSCULAR HGB CONC 31.5 g/dl (32.0-36.5); MEAN CORPUSCULAR VOLUME 97.3 fl (80.0-96.0); MONO # 0.4 10^3/uL (0.0-0.8); MONO % 8.2 % (2.0-8.0); NEUTROPHILS % 58.8 % (36.0-66.0); PLATELET COUNT, AUTOMATED 321 10^3/uL (150-450); RED BLOOD COUNT 3.65 10^6/uL (4.00-5.40)
[2021-06-26] MEDS: LACTOBACILLUS ACIDOPHILUS CAP (BACID) PO SCH ×4 (08:05→20:55)
[2021-06-26] MEDS: oxyCODONE 5MG TAB PO SCH ×2 (08:06→12:46)
[2021-06-26] MEDS: APIXABAN 5 MG TAB (ELIQUIS) PO SCH ×2 (08:06→20:54)
[2021-06-26] MEDS: SERTRALINE 100 MG TAB PO SCH (08:07)
[2021-06-26] MEDS: PANTOPRAZOLE 40MG TAB (PROTONIX) PO SCH (08:07)
[2021-06-26] MEDS: allopurinoL 300 MG TAB PO SCH (08:07)
[2021-06-26] MEDS: POTASSIUM CHLORIDE 10 MEQ SR TABLET PO SCH ×2 (08:07→20:55)
[2021-06-26] MEDS: ATORVASTATIN 20 MG TAB PO SCH (08:07)
[2021-06-26] MEDS: MULTIVITAMINS/MINERALS THERAP 1 TAB PO SCH (08:07)
[2021-06-26] MEDS: ALPRAZolam 0.25 MG TAB PO SCH (08:07)
[2021-06-26] MEDS: ACETAMINOPHEN 500 MG TAB PO SCH ×3 (08:07→20:55)
[2021-06-26] MEDS: REMEDY PHYTOPLEX Z-GUARD PASTE 113GM TUBE (FROM STOREROOM PRODUCT) TOP SCH ×3 (08:09→20:55)
[2021-06-26] MEDS: METOPROLOL TART 12.5 MG PER 1/2 TAB PO SCH ×2 (08:09→20:56)
[2021-06-26] MEDS: LIDOCAINE 5% (LIDODERM) PATCH TD SCH (08:09)
[2021-06-26 08:18] LABS: BLOOD UREA NITROGEN 15 MG/DL (7-18); CALCIUM LEVEL 7.8 MG/DL (8.8-10.2); CARBON DIOXIDE LEVEL 28 MEQ/L (21-32); CHLORIDE LEVEL 112 MEQ/L (98-107); GLOMERULAR FILTRATION RATE > 60.0 (>39); GLUCOSE, FASTING 79 MG/DL (70-100); POTASSIUM SERUM 3.7 MEQ/L (3.5-5.1); SODIUM LEVEL 146 MEQ/L (136-145)
[2021-06-26] MEDS: FUROSEMIDE 40 MG TAB PO SCH (10:55)
[2021-06-26 14:00] VITALS: BP 112/64
[2021-06-26 20:00] VITALS: BP 98/60
[2021-06-26] MEDS: **NOTE PATIENT COMMENT** MISC XX SCH (20:56)
[2021-06-27 06:00] VITALS: BP 97/53
[2021-06-27 08:00] VITALS: BP 116/62
[2021-06-27] MEDS: oxyCODONE 5MG TAB PO SCH (08:00)
[2021-06-27] MEDS: PANTOPRAZOLE 40MG TAB (PROTONIX) PO SCH (08:13)
[2021-06-27] MEDS: LACTOBACILLUS ACIDOPHILUS CAP (BACID) PO SCH (08:13)
[2021-06-27] MEDS: MULTIVITAMINS/MINERALS THERAP 1 TAB PO SCH (08:13)
[2021-06-27] MEDS: POTASSIUM CHLORIDE 10 MEQ SR TABLET PO SCH (08:14)
[2021-06-27] MEDS: allopurinoL 300 MG TAB PO SCH (08:14)
[2021-06-27] MEDS: SERTRALINE 100 MG TAB PO SCH (08:14)
[2021-06-27] MEDS: ATORVASTATIN 20 MG TAB PO SCH (08:14)
[2021-06-27] MEDS: APIXABAN 5 MG TAB (ELIQUIS) PO SCH (08:14)
[2021-06-27] MEDS: ALPRAZolam 0.25 MG TAB PO SCH (08:14)
[2021-06-27] MEDS: FUROSEMIDE 40 MG TAB PO SCH (08:15)
[2021-06-27 08:16] VITALS: BP 116/62
[2021-06-27] MEDS: LIDOCAINE 5% (LIDODERM) PATCH TD SCH (08:16)
[2021-06-27] MEDS: METOPROLOL TART 12.5 MG PER 1/2 TAB PO SCH (08:16)
[2021-06-27] MEDS: REMEDY PHYTOPLEX Z-GUARD PASTE 113GM TUBE (FROM STOREROOM PRODUCT) TOP SCH (08:17)
[2021-06-27] MEDS: ACETAMINOPHEN 500 MG TAB PO SCH (08:24)
[2021-06-27] MEDS ORDERED: METO1TAB87 PO (10:22)
[2021-06-27] MEDS ORDERED: FURO40TA2 PO (10:22)
[2021-06-27] MEDS ORDERED: KLOR10TA76 PO (10:22)
[2021-06-27] MEDS ORDERED: RISATAB3 PO (10:22)
[2021-06-27] MEDS ORDERED: OMEP40CA4 PO (10:22)
[2021-06-27] MEDS ORDERED: ELIQ5TAB PO (10:22)
[2021-06-27] MEDS ORDERED: ALLO300T2 PO (10:22)
[2021-06-27] MEDS ORDERED: ZOLO100T PO (10:22)
[2021-06-27] MEDS ORDERED: OXYC-517 PO (10:22)
[2021-06-27] MEDS ORDERED: ATOR40TA75 PO (10:22)
--- NOTE | 2021-06-27 13:03 | PMRDS ---
NAME: CIRILO HERNDON [facility] WT ID#: [id number] : [id number] JOB: [id number] GURINDER: 06/27/2021 ACCT: [id number] DOCTOR: JANELLE CHUN MD PMR DISCHARGE SUMMARY DATE OF ADMISSION: 06/13/2021 DATE OF DISCHARGE: 06/27/2021 CHIEF COMPLAINT/DISCHARGE DIAGNOSIS: Cervical stenosis, status post decompression surgery with bilateral lower extremity deep venous thrombosis. HISTORY OF PRESENT ILLNESS: This is a 76-year-old female with a past medical history of depression, gastroesophageal reflux disease (GERD), hyperlipidemia, hypertension, cervical stenosis with worsening lower extremity weakness, admitted to [facility] on 06/05/2021 and underwent a C5-6 and C6-7 anterior discectomy fusion cage with local bone graft. Following surgery she developed a Clostridium (C) difficile infection and was started on vancomycin on 06/09/2021. She had postoperative anemia and hypokalemia. She had persistent weakness in her lower limbs with mobility and activities of daily living (ADL) impairments and deemed medically appropriate for discharge to acute rehabilitation unit (ARU) on 06/13/2021. PAST MEDICAL HISTORY: As per history of present illness (HPI). HOSPITAL COURSE: Patient was admitted and enrolled in a comprehensive physical therapy (PT)/occupational therapy (OT) program. She received 24-hour nursing supervision, and weekly team meetings were held to discuss her progress. Patient was noted to have mild drops in her oxygen saturations and tachycardia with lower extremity swelling and edema. There was concern for possible deep venous thrombosis (DVT). Ultrasounds were obtained on 06/15/2021, which was positive for bilateral popliteal vein DVT and a mid to distal right femoral vein DVT. Case was discussed with Dr. Luu, the on-call surgeon at [facility], who received clearance from Dr. Pereira that it was okay to treat her DVTs. Patient was unable to undergo a CT to rule out pulmonary emboli (PE), as she was a very difficult venous stick and refused peripherally inserted central catheter (PICC) line and further intravenous (IV) attempts. Given that treatment for DVT and PE was the same, patient was started on Eliquis 10 mg twice a day times 7 days and transitioned to 5 mg twice a day and instructed to followup with primary care as to whether or not to continue beyond 3 months. Patient was also started on Lasix for her lower extremity swelling and declined fluid restriction or low-salt diet. She finished with a course of vancomycin for her C. difficile infection and had no further episodes of diarrhea. Initially her proton pump inhibitor (PPI) was held given her recent C. difficile; however, given that she was started on blood thinners for DVT, she was started back on PPI. She made steady gains in therapy and was deemed medically and functionally stable to return home. DISCHARGE MEDICATIONS: As per instructions. FUNCTIONAL HISTORY ON DISCHARGE: Patient was modified independent for mobility and ADLs. Thank you for this referral.
--- NOTE | 2021-06-28 12:22 | PMRDS ---
NAME: CIRILO HERNDON [facility] WT ID#: [id number] JOB: [id number] GURINDER: 06/27/2021 ACCT: [id number] DOCTOR: JANELLE CHUN MD PMR DISCHARGE SUMMARY NO DICTATION (ALREADY DONE)
== END 2021-06-27 12:05 | disposition home health service (06) | DRG 556 ==
LOC: M PM&R 15:26
PROVIDERS: ADMIT Physical Medicine & Rehabilitation; ATTEND Physical Medicine & Rehabilitation
DX: M62.81 Muscle weakness (generalized) (principal); A04.72 Enterocolitis due to Clostridium difficile, not specified as recurrent; I82.431 Acute embolism and thrombosis of right popliteal vein; I82.432 Acute embolism and thrombosis of left popliteal vein; I82.421 Acute embolism and thrombosis of right iliac vein; Z98.1 Arthrodesis status; M48.02 Spinal stenosis, cervical region; R26.89 Other abnormalities of gait and mobility; F32.9 Major depressive disorder, single episode, unspecified; K21.9 Gastro-esophageal reflux disease without esophagitis; E78.5 Hyperlipidemia, unspecified; I10 Essential (primary) hypertension; Z74.09 Other reduced mobility; Z74.1 Need for assistance with personal care; D64.9 Anemia, unspecified; E87.6 Hypokalemia; Z79.899 Other long term (current) drug therapy; Z96.653 Presence of artificial knee joint, bilateral; F41.9 Anxiety disorder, unspecified; Z47.89 Encounter for other orthopedic aftercare

== ENCOUNTER 2021-07-03 16:14 | Emergency (ER) | payer MEDICARE, BC ==
[~2021-07-03] VITALS: Ht 170.2 cm; Wt 82.3 kg
[~2021-07-03 16:14] MED LIST changes: +ACET-897 PO; +ALLO300T2 PO; +ALPR0.25 PO; +ASPE4PAD TOP; +ATOR40TA75 PO; +ELIQ5TAB PO; +FIRV50SO PO; +FURO40TA2 PO; +KLOR10TA76 PO; +MAGN400T35 PO; +METO1TAB7 PO; +METO1TAB87 PO; +OMEP40CA4 PO; +OXYC-517 PO; +POTA10TA17 PO; +RISATAB3 PO; +VITMTA PO; +ZOLO100T PO
[2021-07-03 19:03] LABS: BASO % 0.3 % (0.0-1.0); EOS # 0.1 10^3/uL (0.0-0.5); EOS % 0.8 % (0.0-3.0); HEMOGLOBIN 12.4 g/dl (12.0-15.5); LYMPH # 1.8 10^3/uL (1.5-5.0); LYMPH % 19.6 % (24.0-44.0); MEAN CORPUSCULAR HEMOGLOBIN 30.6 pg (27.0-33.0); MEAN CORPUSCULAR HGB CONC 32.6 g/dl (32.0-36.5); MEAN CORPUSCULAR VOLUME 93.8 fl (80.0-96.0); MONO # 0.6 10^3/uL (0.0-0.8); MONO % 6.1 % (2.0-8.0); NEUTROPHILS # 6.8 10^3/uL (1.5-8.5); NEUTROPHILS % 72.7 % (36.0-66.0); PLATELET COUNT, AUTOMATED 361 10^3/uL (150-450); RED BLOOD COUNT 4.05 10^6/uL (4.00-5.40); WHITE BLOOD COUNT 9.3 10^3/uL (4.0-10.0)
[2021-07-03 19:15] LABS: INR 1.6; PROTHROMBIN TIME 19.5 SECONDS (12.7-14.5)
[2021-07-03 19:34] LABS: ALBUMIN 2.3 GM/DL (3.2-5.2); ALT/SGPT 14 U/L (12-78); AMYLASE 63 U/L (25-115); BILIRUBIN,DIRECT 0.2 MG/DL (0.0-0.2); BILIRUBIN,TOTAL 0.5 MG/DL (0.2-1.0); BLOOD UREA NITROGEN 13 MG/DL (7-18); CALCIUM LEVEL 8.2 MG/DL (8.8-10.2); CARBON DIOXIDE LEVEL 26 MEQ/L (21-32); CHLORIDE LEVEL 106 MEQ/L (98-107); GLOMERULAR FILTRATION RATE > 60.0 (>39); GLUCOSE, FASTING 99 MG/DL (70-100); LIPASE 214 U/L (73-393); POTASSIUM SERUM 3.2 MEQ/L (3.5-5.1); SODIUM LEVEL 142 MEQ/L (136-145); TOTAL PROTEIN 5.6 GM/DL (6.4-8.2)
--- NOTE | 2021-07-03 19:55 | REPVR ---
PROCEDURE INFORMATION: Exam: CT Abdomen And Pelvis Without Contrast Exam date and time: 07/03/2021 6:46 PM Age: 76 years old Clinical indication: Abdominal pain; Generalized; Additional info: Abd pain TECHNIQUE: Imaging protocol: Computed tomography of the abdomen and pelvis without contrast. Radiation optimization: All CT scans at this facility use at least one of these dose optimization techniques: automated exposure control; mA and/or kV adjustment per patient size (includes targeted exams where dose is matched to clinical indication); or iterative reconstruction. COMPARISON: CT ABD/PEL W/IV CONTRAST ONLY 04/26/2021 1:00 PM FINDINGS: Liver: Normal. No mass. Gallbladder and bile ducts: Normal. No calcified stones. No ductal dilation. Pancreas: Normal. No ductal dilation. Spleen: Normal. No splenomegaly. Adrenal glands: Normal. No mass. Kidneys and ureters: 1 cm cyst in the midpole of left kidney. Stomach and bowel: Unremarkable. No obstruction. No mucosal thickening. Appendix: No evidence of appendicitis. Intraperitoneal space: Unremarkable. No free air. No significant fluid collection. Vasculature: Atherosclerotic calcification of the abdominal aorta. Lymph nodes: Unremarkable. No enlarged lymph nodes. Urinary bladder: Unremarkable as visualized. Reproductive: Unremarkable as visualized. Bones/joints: Scoliosis of the thoracolumbar spine with convexity to the right. The line degenerative changes of the spine. Total right hip arthroplasty. Soft tissues: Unremarkable. IMPRESSION: No acute abdominal or pelvic abnormality. COMMENTS: Consistent with the [employer]'s Incidental Findings Committee white paper (J Am Pati Radiol 2018): Any incidental renal lesion less than 1 cm or classified as too small to characterize, or any incidental cystic renal lesion characterized as simple-appearing, is likely benign. No follow-up imaging is recommended for these lesions per consensus recommendations based on imaging criteria. Electronically signed by: Dez Johnson On 07/03/2021 19:54:56 PM
[2021-07-03] MEDS ORDERED: POTASSIUM CHLORIDE 10 MEQ SR TABLET PO ONE (20:25)
[2021-07-03 21:00] VITALS: BP 118/70
== END 2021-07-03 21:10 | disposition home or self-care (01) ==
LOC: M ED 16:14
DX: R10.9 Unspecified abdominal pain (principal); I10 Essential (primary) hypertension; Z79.899 Other long term (current) drug therapy; Z79.01 Long term (current) use of anticoagulants; Z87.891 Personal history of nicotine dependence

== ENCOUNTER 2021-07-09 16:42 | Emergency (ER) | payer MEDICARE, BC ==
[~2021-07-09] VITALS: Ht 170.2 cm; Wt 82.3 kg
[~2021-07-09 16:42] MED LIST changes: -KLOR10TA76 PO; +POTA-136 PO
[2021-07-09 18:20] LABS: BASO % 0.2 % (0.0-1.0); HEMATOCRIT 38.5 % (36.0-47.0); HEMOGLOBIN 12.1 g/dl (12.0-15.5); LYMPH % 6.1 % (24.0-44.0); MEAN CORPUSCULAR HEMOGLOBIN 30.9 pg (27.0-33.0); MEAN CORPUSCULAR HGB CONC 31.4 g/dl (32.0-36.5); MEAN CORPUSCULAR VOLUME 98.2 fl (80.0-96.0); MONO # 0.4 10^3/uL (0.0-0.8); MONO % 2.4 % (2.0-8.0); NEUTROPHILS # 14.8 10^3/uL (1.5-8.5); NEUTROPHILS % 90.7 % (36.0-66.0); PLATELET COUNT, AUTOMATED 343 10^3/uL (150-450); RED BLOOD COUNT 3.92 10^6/uL (4.00-5.40); WHITE BLOOD COUNT 16.3 10^3/uL (4.0-10.0)
[2021-07-09 18:46] LABS: ALBUMIN 2.3 GM/DL (3.2-5.2); BILIRUBIN,DIRECT 0.4 MG/DL (0.0-0.2); CALCIUM LEVEL 8.6 MG/DL (8.8-10.2); CK-MB VALUE MASS 2.1 NG/ML (<3.6); CREATININE FOR GFR 1.01 MG/DL (0.55-1.30); MB/CK RELATIVE INDEX 4.88 (< OR =4); POTASSIUM SERUM 3.5 MEQ/L (3.5-5.1); TOTAL PROTEIN 5.7 GM/DL (6.4-8.2); TROPONIN I 0.27 NG/ML (< 0.10)
[2021-07-09] MEDS ORDERED: MORPHINE 2 MG/ML 1ML VIAL (J2270) IV ONE (19:15)
[2021-07-09] MEDS ORDERED: ASPIRIN 81 MG CHEW TABLET PO ONE (19:15)
[2021-07-09] MEDS ORDERED: NITROGLYCERIN 0.4 MG SUBL TABLET SL STA (19:29)
[2021-07-09 21:05] LABS: MB/CK RELATIVE INDEX 2.53 (< OR =4); TROPONIN I 0.28 NG/ML (< 0.10)
[2021-07-09 21:26] LABS: RSV AMPLIFICATION NEGATIVE (NEGATIVE)
[2021-07-09 23:17] VITALS: BP 130/63
== END 2021-07-09 23:22 | disposition short-term general hospital (02) ==
LOC: M ED 16:42
DX: I21.4 Non-ST elevation (NSTEMI) myocardial infarction (principal); I10 Essential (primary) hypertension; E78.5 Hyperlipidemia, unspecified; Z79.899 Other long term (current) drug therapy; Z79.01 Long term (current) use of anticoagulants
CPT/HCPCS: 36415; 80048; 80076; 82550; 82553; 83690; 84484; 85025; 87631; 93005; 96374; 99285; J2270

== ENCOUNTER 2021-08-09 10:39 | Observation (INO) | payer MEDICARE, BC ==
[~2021-08-09] VITALS: Ht 170.2 cm; Wt 83.5 kg
--- NOTE | 2021-08-09 11:25 | REP ---
INDICATION: Altered Mental Status. COMPARISON: Comparison CT studies are reviewed from December 19, 2010 and December 03, 2010. TECHNIQUE: Helical scanning is acquired. 5 mm axial images were reformatted. Coronal MPR images were generated. FINDINGS: Bone window settings demonstrate an intact bony calvarium. There is no evidence of skull fracture or incidental bony calvarial lesion. The visualized paranasal sinuses appear clear. No intraorbital abnormality is seen. On soft tissue window setting images; the lateral, third, and fourth ventricles are normal in size and position. Reynolds-white differentiation pattern is normal above and below the tentorium. There are is no evidence of intracranial hemorrhage. No mass, edema, infarction, or midline shift is seen. No extra-axial fluid collection is appreciated. There is mild vascular calcification in the distal internal carotid arteries. Generalized volume loss is observed slightly more pronounced than on the 2011 study. There are small vessel atherosclerotic changes in the periventricular white matter. IMPRESSION: Mild generalized volume loss and small vessel changes. No acute intracranial abnormality. <Electronically signed by Ciaran Minaya > 08/09/21 [id number]
--- NOTE | 2021-08-09 11:27 | REP ---
INDICATION: Altered Mental Status. COMPARISON: None. TECHNIQUE: Helical scanning is acquired and overlapping 2 mm high resolution axial images were generated and reviewed at bone and soft tissue window settings. Coronal and sagittal multiplanar re-formations images are generated. FINDINGS: There is no evidence of cervical spine element fracture. No skull base fracture is seen. Cervical vertebral body heights are preserved. Alignment is normal. Facet joints are normally aligned bilaterally at each cervical level on multiplanar re-formations images. There is no evidence of intraspinal or paraspinal hematoma. No extra vertebral abnormality is seen. There is straightening of normal cervical lordosis. A ventral discectomy fusion plate is seen across the C 5 through C7 levels. The intervening discs are fused. the lung apices are clear. IMPRESSION: Status post ventral discectomy and fusion C5 through C7. Straightening. Did some degenerative disc disease changes and facet osteoarthritis. No acute bony abnormality. <Electronically signed by Ciaran Minaya > 08/09/21 [id number]
[2021-08-09 12:28] LABS: BASO % 0.5 % (0.0-1.0); EOS # 0.1 10^3/uL (0.0-0.5); EOS % 0.7 % (0.0-3.0); HEMATOCRIT 40.7 % (36.0-47.0); HEMOGLOBIN 12.9 g/dl (12.0-15.5); LYMPH # 0.9 10^3/uL (1.5-5.0); MEAN CORPUSCULAR HEMOGLOBIN 31.9 pg (27.0-33.0); MEAN CORPUSCULAR HGB CONC 31.7 g/dl (32.0-36.5); MEAN CORPUSCULAR VOLUME 100.7 fl (80.0-96.0); MONO # 0.7 10^3/uL (0.0-0.8); MONO % 7.6 % (2.0-8.0); NEUTROPHILS # 7.1 10^3/uL (1.5-8.5); NEUTROPHILS % 80.6 % (36.0-66.0); PLATELET COUNT, AUTOMATED 309 10^3/uL (150-450); RED BLOOD COUNT 4.04 10^6/uL (4.00-5.40); WHITE BLOOD COUNT 8.8 10^3/uL (4.0-10.0)
[2021-08-09 12:37] LABS: RSV AMPLIFICATION NEGATIVE (NEGATIVE)
[2021-08-09 12:59] LABS: OSMOLALITY SERUM 287 MOSM/KG (280-301)
[2021-08-09 13:02] LABS: ALBUMIN 2.2 GM/DL (3.2-5.2); ALT/SGPT 46 U/L (12-78); BILIRUBIN,DIRECT 0.2 MG/DL (0.0-0.2); BILIRUBIN,TOTAL 0.5 MG/DL (0.2-1.0); BLOOD UREA NITROGEN 14 MG/DL (7-18); CALCIUM LEVEL 8.9 MG/DL (8.8-10.2); CARBON DIOXIDE LEVEL 24 MEQ/L (21-32); CHLORIDE LEVEL 107 MEQ/L (98-107); CK-MB VALUE MASS 9.3 NG/ML (<3.6); CPK CREATINE PHOSPHOKINASE 507 U/L (26-192); CREATININE FOR GFR 0.65 MG/DL (0.55-1.30); GLOMERULAR FILTRATION RATE > 60.0 (>39); GLUCOSE, FASTING 81 MG/DL (70-100); MB/CK RELATIVE INDEX 1.83 (< OR =4); POTASSIUM SERUM 4.7 MEQ/L (3.5-5.1); SODIUM LEVEL 142 MEQ/L (136-145); TOTAL PROTEIN 5.2 GM/DL (6.4-8.2); TROPONIN I 0.41 NG/ML (< 0.10)
--- NOTE | 2021-08-09 13:31 | REP ---
INDICATION: low sats. COMPARISON: Comparison chest x-ray January 04, 2018. TECHNIQUE: Portable sitting AP chest radiograph FINDINGS: . the lungs are symmetrically aerated and free of infiltrate. The pleural angles are sharp. The heart is not enlarged. Aorta is somewhat tortuous. Pulmonary vasculature is not increased. No acute bony abnormality. IMPRESSION: No active cardiopulmonary disease. <Electronically signed by Ciaran Minaya > 08/09/21 [id number]
[2021-08-09 15:19] LABS: CK-MB VALUE MASS 8.4 NG/ML (<3.6); TROPONIN I 0.38 NG/ML (< 0.10)
[2021-08-09] MEDS ORDERED: ACETAMINOPHEN TAB 650MG DOSE (2X325MG) PO PRN (16:40)
--- NOTE | 2021-08-09 17:09 | HPEPDOC ---
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 She reports that she was doing very well after ARU and wants to go back to the ARU and was told that the only way she could return was through hospital admission. She feels weak, reports that she lives alone, has some home health help but otherwise has been unable to get out of bed, is using a bedpan and when asked by the ED provider how she has been able to eat, empty the constantino and perform ADLs she reported that her neighbor has been coming over to help. She has no children, has a sister who lives within the area but is currently visiting a friend in [place] and a brother who lives in [place]. At baseline she was ambulating with a 4 WW and otherwise independent and having home PT and services. She reports having fallen while reaching for something on 08/04 and bumped her R arm but otherwise did not hit her head or have LOC. She denies any fever, chills, dysuria, chest pain, palpitations, SOB, abdominal pain. In the ED, she is hemodynamically stable, afebrile, breathing comfortably on r oom air, is conversational and CBC, BMP were unrermakable. Troponin was 0.41 then .38 on repeat with RBBB and non-specific findings on EKG as previously noted. CXR showed no acute cardiopulmonary process, CT head showed no bleeding or mass effect, while CT of C-spine showed no subluxation or acute fracture. She is now being admitted to medicine for deconditioning. PAST MEDICAL HISTORY: 1. Hypertension. 2. Hyperlipidemia. 3. GERD. 4. Depression PAST SURGICAL HISTORY: 1. 2 knee replacements. 2. Back surgeries. 3. Recent cervical surgery. 4. Hysterectomy 5. Appendectomy SOCIAL HISTORY: Patient lives at home and denies any alcohol or tobacco use FAMILY HISTORY: Mother of COPD complications 84. Father of electrocution accident at a young age. ALLERGIES: Please see below. REVIEW OF SYSTEMS: 10 point ROS was completed and was otherwise negative except for LE weakness as noted in HPI HOME MEDICATIONS: Please see below. PHYSICAL EXAMINATION: VITAL SIGNS: see below General: Alert and oriented female patient who was sitting up, conversational and in no acute distress HEENT: Normocephalic, atraumatic, moist mucous membranes. Neck: No lymphadenopathy or thyromegaly Cardiac: Regular rate and rhythm, no murmurs, normal S1, normal S2 Pulm: Clear to auscultation bilaterally. No wheezes, rhonchi, rales Abd: Nondistended, nontender to palpation, normal bowel sounds Ext: No edema bilateral lower extremities, WWP, dry skin Neuro: CN3-12 intact, 5/5 strength upper extremities, 4/5 LE bilaterally LABORATORY DATA and IMAGING: Summarized above. Reviewed MICROBIOLOGY: Please see below. ASSESSMENT: 76-year-old W with a history of HTN, HLD, GERD and depression, who recently had DVT and PE on eliquis, recently admitted to the ARU 06/13-06/27 s/p anterior discectomy with fusion and bone allograft of C5-6 and C6-7 on 06/06/2021 at [facility] and a recent presentation to the ED with chest pain with noted troponinemia and transferred to [facility] where she had an unremarkable clean LHC and TTE who now presents from home reporting increasing weakness and deconditioning and being admitted to medicine for deconditioning and PT//OT evaluation for safe discharge planning. PLAN: Deconditioning: -PT/OT -ARU screen Hypertension. -Continue home metop tartrate 12.5mg BID Hyperlipidemia. -Continue home lipitor Depression and anxiety. -Continue home alprazolam History of DVT/PE. -continue home eliquis DVT ppx: on eliquis Vital Signs Vital Signs Date Time Temp Pulse Resp B/P (MAP) Pulse Ox O2 Delivery O2 Flow Rate FiO2 08/09/21 15:48 101 18 98 Room Air 08/09/21 13:32 113/62 (79) 08/09/21 11:00 97.9 Laboratory Data Labs 24H Laboratory Tests 2 08/09/21 11:29: Coronavirus (COVID-19)(PCR) NEGATIVE, Influenza Type A (RT-PCR) NEGATIVE, Influenza Type B (RT-PCR) NEGATIVE, Respiratory Syncytial Virus (PCR) NEGATIVE 08/09/21 12:08: Immature Granulocyte % (Auto) 0.6, Neutrophils (%) (Auto) 80.6H, Lymphocytes (%) (Auto) 10.0L, Monocytes (%) (Auto) 7.6, Eosinophils (%) (Auto) 0.7, Basophils (%) (Auto) 0.5, Neutrophils # (Auto) 7.1, Lymphocytes # (Auto) 0.9L, Monocytes # (Auto) 0.7, Eosinophils # (Auto) 0.1, Basophils # (Auto) 0.0, Nucleated Red Blood Cells % (auto) 0.0, Anion Gap 11, Glomerular Filtration Rate > 60.0, Osmolality 287, Lactic Acid Level 2.1*H, Calcium Level 8.9, Total Bilirubin 0.5, Direct Bilirubin 0.2, Aspartate Amino Transf (AST/SGOT) 75H, Alanine Aminotransferase (ALT/SGPT) 46, Alkaline Phosphatase 83, Ammonia < 10, Total Creatine Kinase 507H, Creatine Kinase MB 9.3H, Creatine Kinase MB Relative Index 1.83, Troponin I 0.41H, Total Protein 5.2L, Albumin 2.2L, Albumin/Globulin Ratio 0.7L, Thyroid Stimulating Hormone (TSH) 2.050 08/09/21 14:33: Total Creatine Kinase 419H, Creatine Kinase MB 8.4H, Creatine Kinase MB Relative Index 2.00, Troponin I 0.38H CBC/BMP Laboratory Tests 08/09/21 12:08 Home Medications Scheduled Apixaban (Eliquis) 5 Mg Tablet, 5 MG PO BID Atorvastatin Calcium (Atorvastatin Calcium) 40 Mg Tablet, 40 MG PO DAILY Furosemide (Furosemide) 40 Mg Tablet, 40 MG PO DAILY L.acidoph/L.bulg/B.bif/S.therm (Pita-Bid Caplet) 1 Each Tablet, 1 EA PO WMHS Metoprolol Tartrate (Metoprolol Tartrate) 25 Mg Tablet, 12.5 MG PO BID Multivitamins (Thera M Plus Tablet) 1 Each Tablet, 1 TAB PO DAILY Potassium Chloride (Klor-Con M10) 10 Meq Tab.er.prt, 10 MEQ PO BID allopurinoL (allopurinoL) 300 Mg Tablet, 300 MG PO DAILY Scheduled PRN Acetaminophen (Tylenol Extra Strength) 500 Mg Tablet, 1,000 MG PO TID PRN for PAIN LEVEL 1-4 Alprazolam (Alprazolam) 0.25 Mg Tablet, 0.25 MG PO DAILY PRN for ANXIETY Lidocaine (Aspercreme) 4% Adh..patch, 1 PATCH TOP DAILY PRN for PAIN LEVEL 4-7 Allergies Coded Allergies: No Known Allergies (Unverified , 04/26/21) A-FIB/CHADSVASC A-FIB History Current/History of A-Fib/PAF?: Yes Current PO Anticoag Therapy: Yes Treatment Treatment ordered: Apixaban JAYLEN FRAZIER MD Aug 09, 2021 17:09
[2021-08-09] MEDS ORDERED: ALLO300T2 PO (17:13)
[2021-08-09] MEDS ORDERED: FURO40TA2 PO (17:13)
[2021-08-09] MEDS ORDERED: ACET1TAB16 PO (17:13)
[2021-08-09] MEDS ORDERED: NORV5TAB PO (17:13)
[2021-08-09] MEDS ORDERED: SLOWTAB2 PO (17:13)
[2021-08-09] MEDS ORDERED: ELIQ5TAB PO (17:13)
[2021-08-09] MEDS ORDERED: ZOLO100T PO (17:13)
[2021-08-09] MEDS ORDERED: RISATAB3 PO (17:13)
[2021-08-09] MEDS ORDERED: ATOR40TA75 PO (17:13)
[2021-08-09] MEDS ORDERED: K-TA10TA PO (17:13)
[2021-08-09] MEDS ORDERED: OMEP40CA4 PO (17:13)
[2021-08-09] MEDS ORDERED: HOME MED LIST COMPLETE! XX SCH (17:15)
[2021-08-09 19:00] VITALS: BP 118/64
[2021-08-09] MEDS ORDERED: ACETAMINOPH W/CODEINE #3 TAB UD PO PRN (21:20)
[2021-08-09] MEDS ORDERED: ALPRAZolam 0.25 MG TAB PO PRN (21:20)
[2021-08-09] MEDS: APIXABAN 5 MG TAB (ELIQUIS) PO SCH (21:52)
[2021-08-09 22:03] VITALS: BP 123/86
[2021-08-10 06:00] VITALS: BP 121/65
[2021-08-10 06:33] LABS: HEMATOCRIT 35.4 % (36.0-47.0); HEMOGLOBIN 11.3 g/dl (12.0-15.5); MEAN CORPUSCULAR HEMOGLOBIN 31.9 pg (27.0-33.0); MEAN CORPUSCULAR HGB CONC 31.9 g/dl (32.0-36.5); PLATELET COUNT, AUTOMATED 267 10^3/uL (150-450); RED BLOOD COUNT 3.54 10^6/uL (4.00-5.40); WHITE BLOOD COUNT 4.9 10^3/uL (4.0-10.0)
[2021-08-10 06:43] LABS: BLOOD UREA NITROGEN 15 MG/DL (7-18); CALCIUM LEVEL 8.8 MG/DL (8.8-10.2); CARBON DIOXIDE LEVEL 26 MEQ/L (21-32); CHLORIDE LEVEL 108 MEQ/L (98-107); CREATININE FOR GFR 0.62 MG/DL (0.55-1.30); GLOMERULAR FILTRATION RATE > 60.0 (>39); GLUCOSE, FASTING 86 MG/DL (70-100); MAGNESIUM LEVEL 1.7 MG/DL (1.8-2.4); POTASSIUM SERUM 4.5 MEQ/L (3.5-5.1); SODIUM LEVEL 141 MEQ/L (136-145)
--- NOTE | 2021-08-10 07:41 | ECGEPIP ---
[facility] - ED Test Date: 2021-08-09 Pat Name: CIRILO HERNDON Department: Room: - Gender: Female Flat Sorter Processor: ROSEY : 1945 Requested By: Maria C Causey Order Number: [id number] Reading MD: Maria C Causey Measurements Intervals [place] Rate: 100 P: 26 NE: 140 QRS: 71 QRSD: 118 T: -23 QT: 382 QTc: 492 Interpretive Statements Normal sinus rhythm Right bundle branch block T wave abnormality, consider ischemia Electronically Signed on 08-10-2021 7:41:47 EDT by Maria C Causey
[2021-08-10 09:00] VITALS: BP 113/64
[2021-08-10] MEDS ORDERED: ATORVASTATIN 20 MG TAB PO SCH (09:00)
[2021-08-10] MEDS ORDERED: amLODIPine 5 MG TAB PO SCH (09:00)
[2021-08-10] MEDS ORDERED: SERTRALINE 100 MG TAB PO SCH (09:00)
[2021-08-10] MEDS ORDERED: FUROSEMIDE 40 MG TAB PO SCH (09:00)
[2021-08-10] MEDS ORDERED: allopurinoL 300 MG TAB PO SCH (09:00)
[2021-08-10] MEDS ORDERED: OMEPRAZOLE 20 MG CAP PO SCH (09:00)
[2021-08-10] MEDS: LACTOBACILLUS ACIDOPHILUS CAP (BACID) PO SCH ×3 (09:19→17:41)
[2021-08-10] MEDS: APIXABAN 5 MG TAB (ELIQUIS) PO SCH (09:19)
[2021-08-10] MEDS ORDERED: MAGNESIUM OXIDE 400MG TAB (MAG-OX) PO ONE (12:20)
--- NOTE | 2021-08-10 13:03 | DS.PDOC ---
Discharge Summary General Date of Admission Aug 09, 2021 at 10:40 Date of Discharge 08/10/2021 Attending Physician: JAYLEN FRAZIER MD Discharge Summary PROCEDURES PERFORMED DURING STAY: None ADMITTING DIAGNOSES: Physical deconditioning DISCHARGE DIAGNOSES: Physical deconditioning Cervical stenosis s/p recent anterior discectomy with fusion and bone allograft of C5-6 and C6-7 on 06/06/2021 Hypertension Hyperlipidemia GERD Depression COMPLICATIONS/CHIEF COMPLAINT: Weakness. HISTORY OF PRESENT ILLNESS: 76-year-old W with a history of HTN, HLD, GERD and depression, who recently had DVT and PE on eliquis, recently admitted to the ARU 06/13-06/27 s/p anterior discectomy with fusion and bone allograft of C5-6 and C6-7 on 06/06/2021 at [facility] and a recent presentation to the ED with chest pain with noted troponinemia and transferred to [facility] where she had an unremarkable clean LHC and TTE who presented from home reporting increasing weakness and deconditioning in setting of not having the optimal prescribed home PT having had only 2 sessions in 4 weeks. She reported that she was doing very well after ARU and wanted to go back to the ARU and was told that the only way she could return was through hospital admission. She felt weak, lives alone and had been unable to get out of bed, was using a bedpan and when asked by the ED provider how she has been able to eat, empty the constantino and perform ADLs she reported that her neighbor had been coming over to help. She has no children, has a sister who lives within the area but is currently visiting a friend in [place] and a brother who lives in [place]. At baseline she was ambulating with a 4 WW and otherwise indepen dent and having home PT and services. She reports having fallen while reaching for something on 08/04 and bumped her R arm but otherwise did not hit her head or have LOC. HOSPITAL COURSE: In the ED, she was hemodynamically stable, afebrile, breathing comfortably on room air, is conversational and CBC, BMP were unremarkable. Troponin was 0.41 then .38 on repeat with RBBB and non-specific findings on EKG as previously noted. CXR showed no acute cardiopulmonary process, CT head showed no bleeding or mass effect, while CT of C-spine showed no subluxation or acute fracture. She was admitted to medicine for physical deconditioning and safe discharge planning and upon evaluation by PT/OT and PM&R she was deemed appropriate for admission to the ARU where she is now being discharged. DISCHARGE MEDICATIONS: Please see below. ALLERGIES: Please see below. PHYSICAL EXAMINATION ON DISCHARGE: VITAL SIGNS: Please see below. General: Alert and oriented female patient who was sitting up, conversational and in no acute distress HEENT: Normocephalic, atraumatic, moist mucous membranes. Neck: No lymphadenopathy or thyromegaly Cardiac: Regular rate and rhythm, no murmurs, normal S1, normal S2 Pulm: Clear to auscultation bilaterally. No wheezes, rhonchi, rales Abd: Nondistended, nontender to palpation, normal bowel sounds Ext: No edema bilateral lower extremities, WWP, dry skin Neuro: CN3-12 intact, 5/5 strength upper extremities, 4/5 LE bilaterally LABORATORY DATA: Please see below. IMAGING: CT head: Bone window settings demonstrate an intact bony calvarium. There is no evidence of skull fracture or incidental bony calvarial lesion. The visualized paranasal sinuses appear clear. No intraorbital abnormality is seen. On soft tissue window setting images; the lateral, third, and fourth ventricles are normal in size and position. Reynolds-white differentiation pattern is normal above and below the tentorium. There are is no evidence of intracranial hemorrhage. No mass, edema, infarction, or midline shift is seen. No extra-axial fluid collection is appreciated. There is mild vascular calcification in the distal internal carotid arteries. Generalized volume loss is observed slightly more pronounced than on the 2011 study. There are small vessel atherosclerotic changes in the periventricular white matter. IMPRESSION: Mild generalized volume loss and small vessel changes. No acute intracranial abnormality. CT of C-spine: There is no evidence of cervical spine element fracture. No skull base fracture is seen. Cervical vertebral body heights are preserved. Alignment is normal. Facet joints are normally aligned bilaterally at each cervical level on multiplanar re-formations images. There is no evidence of intraspinal or paraspinal hematoma. No extra vertebral abnormality is seen. There is straightening of normal cervical lordosis. A ventral discectomy fusion plate is seen across the C 5 through C7 levels. The intervening discs are fused. the lung apices are clear. IMPRESSION: Status post ventral discectomy and fusion C5 through C7. Straightening. Did some degenerative disc disease changes and facet osteoarthritis. No acute bony abnormality. CXR: the lungs are symmetrically aerated and free of infiltrate. The pleural angles are sharp. The heart is not enlarged. Aorta is somewhat tortuous. Pulmonary vasculature is not increased. No acute bony abnormality. IMPRESSION: No active cardiopulmonary disease. PROGNOSIS: Good ACTIVITY: As tolerated, per PM&R DIET: 2g sodium DISCHARGE PLAN: ARU DISPOSITION: ARU DISCHARGE INSTRUCTIONS: To ARU ITEMS TO FOLLOWUP ON ON OUTPATIENT: Physical deconditioning DISCHARGE CONDITION: Stable TIME SPENT ON DISCHARGE: 33 minutes. Vital Signs/I&Os Vital Signs Date Time Temp Pulse Resp B/P (MAP) Pulse Ox O2 Delivery O2 Flow Rate FiO2 08/10/21 09:00 97 113/64 08/10/21 06:00 97.9 18 98 Room Air I&O- Last 24 Hours up to 6 AM 08/10/21 05:59 Intake Total 120 ml Balance 120 ml Laboratory Data Labs 24H Laboratory Tests 2 08/09/21 14:33: Total Creatine Kinase 419H, Creatine Kinase MB 8.4H, Creatine Kinase MB Relative Index 2.00, Troponin I 0.38H 08/09/21 18:31: Lactic Acid Followup at 4 Hours 0.9 08/10/21 06:05: Nucleated Red Blood Cells % (auto) 0.0, Anion Gap 7L, Glomerular Filtration Rate > 60.0, Calcium Level 8.8, Magnesium Level 1.7L CBC/BMP Laboratory Tests 08/10/21 06:05 Discharge Medications Scheduled Amlodipine Besylate (Norvasc) 5 Mg Tablet, 5 MG PO DAILY, (Reported) Apixaban (Eliquis) 5 Mg Tablet, 5 MG PO BID, (Reported) Atorvastatin Calcium (Atorvastatin Calcium) 40 Mg Tablet, 40 MG PO DAILY, (Reported) Furosemide (Furosemide) 40 Mg Tablet, 40 MG PO DAILY, (Reported) L.acidoph/L.bulg/B.bif/S.therm (Pita-Bid Caplet) 1 Each Tablet, 1 TAB PO WM, (Reported) Magnesium Chloride (Slow-Mag) 71.5 Mg Tablet.dr, 2 TABS PO DAILY, (Reported) Multivitamins (Thera M Plus Tablet) 1 Each Tablet, 1 TAB PO DAILY, (Reported) Omeprazole (Omeprazole) 40 Mg Capsule.dr, 40 MG PO DAILY, (Reported) Potassium Chloride (K-Tab ER) 10 Meq Tablet.er, 10 MEQ PO BID, (Reported) Sertraline Hcl (Zoloft) 100 Mg Tablet, 100 MG PO DAILY, (Reported) allopurinoL (allopurinoL) 300 Mg Tablet, 300 MG PO DAILY, (Reported) Scheduled PRN Acetaminophen (Tylenol Extra Strength) 500 Mg Tablet, 1,000 MG PO TID PRN for PAIN LEVEL 1-4, (Reported) Acetaminophen with Codeine (Acetaminophen-Cod #3 Tablet) 1 Each Tablet, 1 TAB PO TID PRN for PAIN LEVEL 5-7, (Reported) Alprazolam (Alprazolam) 0.25 Mg Tablet, 0.25 MG PO BID PRN for ANXIETY, (Reported) Allergies Coded Allergies: No Known Allergies (Unverified , 04/26/21) JAYLEN FRAZIER MD Aug 10, 2021 13:03
[2021-08-10 14:00] VITALS: BP 120/70
== END 2021-08-10 17:55 ==
LOC: M ED 10:39 → M ED INP 10:40 → ENRESERV 17:11 → M MS5PR 18:55
PROVIDERS: ADMIT Internal Medicine; ATTEND Internal Medicine
DX: R53.1 Weakness (principal); M48.02 Spinal stenosis, cervical region; Z98.1 Arthrodesis status; I10 Essential (primary) hypertension; E78.5 Hyperlipidemia, unspecified; K21.9 Gastro-esophageal reflux disease without esophagitis; F32.9 Major depressive disorder, single episode, unspecified; R29.6 Repeated falls; I67.82 Cerebral ischemia; R74.8 Abnormal levels of other serum enzymes; Z79.899 Other long term (current) drug therapy; Z79.01 Long term (current) use of anticoagulants; Z86.711 Personal history of pulmonary embolism; Z86.718 Personal history of other venous thrombosis and embolism
CPT/HCPCS: 36415; 70450; 71045; 72125; 80048; 80076; 82140; 82550; 82553; 83605; 83735; 83930; 84443; 84484; 85025; 85027; 86850; 86900; 86901; 93005; 93041; 94760; 97161; 97165; 97530; 99285; G0378

== ENCOUNTER 2021-08-10 12:00 | Inpatient (IN) | payer MEDICARE, BC ==
[~2021-08-10] VITALS: Ht 170.2 cm; Wt 86.0 kg
[~2021-08-10 12:00] MED LIST changes: +ACET1TAB16 PO; +K-TA10TA PO; +NORV5TAB PO; +SLOWTAB2 PO
[2021-08-10] MEDS ORDERED: MIRALAX *UNIT DOSE* 17GM PACKET PO PRN (15:10)
[2021-08-10] MEDS ORDERED: BISACODYL 10 MG SUPP PR PRN (15:10)
[2021-08-10 18:00] VITALS: BP 123/59
[2021-08-10] MEDS: LACTOBACILLUS ACIDOPHILUS CAP (BACID) PO SCH ×2 (18:00→20:56)
[2021-08-10 20:00] VITALS: BP 104/55
[2021-08-10] MEDS: METOPROLOL TART 12.5 MG PER 1/2 TAB PO SCH (20:50)
[2021-08-10] MEDS: ACETAMINOPHEN 500 MG TAB PO SCH (20:57)
[2021-08-10] MEDS: APIXABAN 5 MG TAB (ELIQUIS) PO SCH (20:57)
[2021-08-10] MEDS: MAGNESIUM OXIDE 400MG TAB (MAG-OX) PO SCH (20:57)
[2021-08-10] MEDS: REMEDY PHYTOPLEX Z-GUARD PASTE 113GM TUBE (FROM STOREROOM PRODUCT) TOP SCH (20:57)
[2021-08-10] MEDS: DOCUSATE SODIUM 100MG CAPSULE PO SCH (20:59)
[2021-08-10] MEDS: SENNA 8.6 MG TAB (SENOKOT) PO SCH (20:59)
[2021-08-11 06:00] VITALS: BP 99/57
[2021-08-11] MEDS: METOPROLOL TART 12.5 MG PER 1/2 TAB PO SCH ×2 (08:43→21:35)
[2021-08-11] MEDS: amLODIPine 5 MG TAB PO SCH (08:43)
[2021-08-11] MEDS: APIXABAN 5 MG TAB (ELIQUIS) PO SCH ×2 (08:45→21:34)
[2021-08-11] MEDS: OMEPRAZOLE 20 MG CAP PO SCH (08:45)
[2021-08-11] MEDS: allopurinoL 300 MG TAB PO SCH (08:46)
[2021-08-11] MEDS: SERTRALINE 100 MG TAB PO SCH (08:46)
[2021-08-11] MEDS: ACETAMINOPHEN 500 MG TAB PO SCH ×3 (08:46→21:34)
[2021-08-11] MEDS: LACTOBACILLUS ACIDOPHILUS CAP (BACID) PO SCH ×4 (08:46→21:32)
[2021-08-11] MEDS: ATORVASTATIN 20 MG TAB PO SCH (08:46)
[2021-08-11] MEDS: POTASSIUM CHLORIDE 10MEQ SR TABLET PO SCH (08:47)
[2021-08-11] MEDS: MAGNESIUM OXIDE 400MG TAB (MAG-OX) PO SCH ×2 (08:48→21:33)
[2021-08-11] MEDS: REMEDY PHYTOPLEX Z-GUARD PASTE 113GM TUBE (FROM STOREROOM PRODUCT) TOP SCH ×3 (08:51→21:00)
[2021-08-11] MEDS: ASPIRIN 81MG ENTERIC TABLET PO SCH (08:52)
[2021-08-11] MEDS: DOCUSATE SODIUM 100MG CAPSULE PO SCH ×2 (08:52→21:00)
[2021-08-11] MEDS: FUROSEMIDE 40 MG TAB PO SCH (08:53)
[2021-08-11 09:50] LABS: BASO % 0.7 % (0.0-1.0); EOS # 0.1 10^3/uL (0.0-0.5); EOS % 1.8 % (0.0-3.0); HEMATOCRIT 37.1 % (36.0-47.0); HEMOGLOBIN 11.7 g/dl (12.0-15.5); LYMPH % 18.2 % (24.0-44.0); MEAN CORPUSCULAR HEMOGLOBIN 32.1 pg (27.0-33.0); MEAN CORPUSCULAR HGB CONC 31.5 g/dl (32.0-36.5); MEAN CORPUSCULAR VOLUME 101.6 fl (80.0-96.0); MONO # 0.4 10^3/uL (0.0-0.8); MONO % 7.8 % (2.0-8.0); NEUTROPHILS # 3.9 10^3/uL (1.5-8.5); NEUTROPHILS % 71.1 % (36.0-66.0); PLATELET COUNT, AUTOMATED 304 10^3/uL (150-450); RED BLOOD COUNT 3.65 10^6/uL (4.00-5.40); WHITE BLOOD COUNT 5.5 10^3/uL (4.0-10.0)
--- NOTE | 2021-08-11 10:06 | HPEPDOC ---
Clinical Dental Technician Note DATE OF ADMISSION: 08-10-21 DATE OF SERVICE: 08-11-21 TIME OF ADMISSION: Please refer to physician's admission order. SOURCE OF ADMISSION INFORMATION: [facility] record and patient CHIEF COMPLAINT:weakness in setting of cervical stenosis HISTORY OF PRESENT ILLNESS: 76F pmh depression, GERD, HLD, HTN, cervical stenosis s/p decompression surgery May 2021, recent diagnoses of DVT and PE on Eliquis presented to [facility] ED with chest pain was found to have an NSTEMI after which she was transferred to [facility] where she had a left heart catheterization and TTE both of which were unremarkable and then later returned to [facility] on 08-09-21 complaining of worsening weakness and difficulty walking. She was found to have tachycardia, persistently elevated cardiac enzymes although they were trending down and in setting of her cervical stenosis was noted to have new difficulties with ambulation and ADLs and deemed medically appropriate for discharge to ARU. On initial eval patient reports a band-like tension around her chest she has had for a few weeks now, but denies chest pain. REVIEW OF SYSTEMS: The following is a completed review of systems and has been reviewed. Review of systems otherwise unremarkable. PAIN: Patient self reports no pain EYES: No recent vision changes EARS, NOSE, & THROAT: No throat pain, or dysphagia, or rhinorrhea CARDIOVASCULAR: Denies chest pain or palpitations PULMONARY: Denies shortness of breath GASTROINTESTINAL: Denies constipation/diarrhea GENITOURINARY:denies dysuria or incontinence MUSCULOSKELETAL: bilat LE weakness NEUROLOGICAL: denies tremor or paresthesias HEMATOLOGICAL: denies easy bruising SKIN: denies rash PSYCHIATRIC: Unremarkable All other review of systems found to be negative. PAST MEDICAL HISTORY: as per HPI PAST SURGICAL HISTORY: as per HPI ALLERGIES: Please see below. MEDICATIONS: Please see below. SOCIAL HISTORY: no etoh/illicit drugs/smoking DIET:regular PHYSICAL EXAMINATION: VITAL SIGNS: Please see below. GENERAL: Pleasant and cooperative. No acute distress. HEENT: PERRL. Extraocular movements intact. Clear conjunctiva CARDIOVASCULAR: Regular rate and rhythm. No murmurs, rubs, or gallops LUNGS: Clear to auscultation bilaterally. No wheezes. No rhonchi ABDOMEN: Soft, nontender, nondistended. Positive bowel sounds. Normal active bowel sounds NEUROLOGICAL: Alert and oriented times three. Cranial nerves II through XII grossly intact. Sensation grossly intact all 4 limbs. EXTREMITIES: 5\5 strength bilateral upper extremities. 4\5 strength right lower extremity. 5-/5 strength in left lower extremity. LABORATORY DATA: Please see below. IMAGING: Imaging documentation personally reviewed by record FUNCTIONAL STATUS: Premorbid: Mod-Independent with all activities of daily life as well as mobility up until last few months, where she was using wheelchair On Admission: Contact guard-Min assist for bed mobility, functional transfers, dressing, and ambulation Goals: Mod-I household distances for ambulation, functional transfers, dressing, toileting, bathing ASSESSMENT:76-year-old F with past medical history of cervical stenosis with bilat LE weakness who presents with multiple falls in setting of cervical stenosis PLAN: 1. Rehab- PT/OT advance mobility and ADLs, strengthen/stretch/maintain ROM al 4limbs, avoid strenuous activity 2. Neuro- cervical stenosis with LE weakness s/p surgery with residual LE weakness contributing to recent falls and new deficits in mobility and ADLs 3. Cardiac- hx of HTN, patient with soft BPs, will add low dose metoprolol given recent NSTEMI and improving, but elevated troponins, cont lasix -HLD- cont statin -medicine consulted to assist in overall management 4. Resp- monitor for infection -patient reporting bandlike chest tension that has been ongoing, suspect pleuritis from PEs- cont tylenol 5. GI- hx of C diff, monitor for loose stools 6. DVT with PE- on eliquis 7. Psych- zoloft and xanax for depression/anxiety 8. Pain- tylenol and oxycodone 9.Dispo- tbd POST ADMISSION PHYSICIAN EVALUATION: Medical and functional status: Description of medical status, medical assessment: As above. Rehabilitation diagnosis and current and prior cold morbid medical conditions as above. Risk of complications and plans to mitigate them as above. Description of functional status current status is as above. Prior status as above. Status compared to preadmission: There are no clinically significant differences between the patient's current status and the information described on the preadmission screening document. Treatment plan anticipated: Treatment plan is as described above. Required disciplines including physical therapy, occupational therapy, others as noted above Intensity of services: 3 hours a day, 6 days a week. Special considerations: There are no specific special or safety considerations that would likely preclude immediate implementation of an intensive rehabilitation program or subsequently influence the plan of care ATTESTATION: Considering all the information above, it is my best judgment that this patient requires intensive rehabilitation therapy as described above and an inpatient hospital environment due to the complexity of nursing, medical, and rehabilitation needs required by the patient. Furthermore, this patient can reasonably be expected to participate in an benefit from an inpatient rehabilitation stay with an interdisciplinary team approach to the delivery of rehabilitation care under the direction and supervision of rehabilitation physician PROGNOSIS: Excellent. ESTIMATED LENGTH OF STAY:12-14 days. PROJECTED DISCHARGE DESTINATION: Home with family support and any durable medical equipment required to increase functional safety and mobility TIME SPENT COUNSELING AND COORDINATING INITIAL CARE: Greater than 70 minutes. Vital Signs Vital Sign - Last 24 Hours 08/10/21 08/10/21 08/10/21 08/11/21 18:00 20:00 20:50 06:00 Temp 98.2 97.7 98.4 Pulse 105 90 90 88 Resp 19 17 17 B/P (MAP) 123/59 (80) 104/55 (71) 105/55 99/57 (71) Pulse Ox 97 97 96 O2 Delivery Room Air Room Air Room Air 08/11/21 08:43 Pulse 80 B/P (MAP) 100/57 Laboratory Data CBC/BMP Laboratory Tests 08/11/21 08:36 Labs 24H Laboratory Tests 2 08/11/21 08:36: Immature Granulocyte % (Auto) 0.4, Neutrophils (%) (Auto) 71.1H, Lymphocytes (%) (Auto) 18.2L, Monocytes (%) (Auto) 7.8, Eosinophils (%) (Auto) 1.8, Basophils (%) (Auto) 0.7, Neutrophils # (Auto) 3.9, Lymphocytes # (Auto) 1.0L, Monocytes # (Auto) 0.4, Eosinophils # (Auto) 0.1, Basophils # (Auto) 0.0, Nucleated Red Blood Cells % (auto) 0.0 Home Medications Scheduled Amlodipine Besylate (Norvasc) 5 Mg Tablet, 5 MG PO DAILY, (Reported) Apixaban (Eliquis) 5 Mg Tablet, 5 MG PO BID, (Reported) Atorvastatin Calcium (Atorvastatin Calcium) 40 Mg Tablet, 40 MG PO DAILY, (Reported) Furosemide (Furosemide) 40 Mg Tablet, 40 MG PO DAILY, (Reported) L.acidoph/L.bulg/B.bif/S.therm (Pita-Bid Caplet) 1 Each Tablet, 1 TAB PO WM, (Reported) Magnesium Chloride (Slow-Mag) 71.5 Mg Tablet.dr, 2 TABS PO DAILY, (Reported) Multivitamins (Thera M Plus Tablet) 1 Each Tablet, 1 TAB PO DAILY, (Reported) Omeprazole (Omeprazole) 40 Mg Capsule.dr, 40 MG PO DAILY, (Reported) Potassium Chloride (K-Tab ER) 10 Meq Tablet.er, 10 MEQ PO BID, (Reported) Sertraline Hcl (Zoloft) 100 Mg Tablet, 100 MG PO DAILY, (Reported) allopurinoL (allopurinoL) 300 Mg Tablet, 300 MG PO DAILY, (Reported) Scheduled PRN Acetaminophen (Tylenol Extra Strength) 500 Mg Tablet, 1,000 MG PO TID PRN for PAIN LEVEL 1-4, (Reported) Acetaminophen with Codeine (Acetaminophen-Cod #3 Tablet) 1 Each Tablet, 1 TAB PO TID PRN for PAIN LEVEL 5-7, (Reported) Alprazolam (Alprazolam) 0.25 Mg Tablet, 0.25 MG PO BID PRN for ANXIETY, (Reported) Allergies Coded Allergies: No Known Allergies (Unverified , 04/26/21) A-FIB/CHADSVASC A-FIB History Current/History of A-Fib/PAF?: No Current PO Anticoag Therapy: Yes JANELLE CHUN MD Aug 11, 2021 10:06
[2021-08-11 11:07] LABS: ALT/SGPT 39 U/L (12-78); BILIRUBIN,TOTAL 0.4 MG/DL (0.2-1.0); BLOOD UREA NITROGEN 13 MG/DL (7-18); CALCIUM LEVEL 8.9 MG/DL (8.8-10.2); CARBON DIOXIDE LEVEL 29 MEQ/L (21-32); CHLORIDE LEVEL 108 MEQ/L (98-107); CREATININE FOR GFR 0.61 MG/DL (0.55-1.30); GLOMERULAR FILTRATION RATE > 60.0 (>39); GLUCOSE, FASTING 73 MG/DL (70-100); NT-PRO BNP 208 PG/ML (<125); POTASSIUM SERUM 4.1 MEQ/L (3.5-5.1); SODIUM LEVEL 143 MEQ/L (136-145); TOTAL PROTEIN 4.8 GM/DL (6.4-8.2)
[2021-08-11] MEDS ORDERED: FLUBLOK(EGG FREE)(QUAD)INFLUENZA VACC 0.5ML SYRINGE 18YRS & OLDER IM ONE (12:00)
--- NOTE | 2021-08-11 12:26 | IPNPDOC ---
Text Note Date of Service The patient was seen on 08/11/21. NOTE SUBJECTIVE: -Ms. Stanton is cheerful and hopeful about her rehab plan and is giving it her best as she looks forward to improving her mobility OBJECTIVE: VITAL SIGNS: Please see below. General: Alert and oriented female patient who was sitting up, conversational and in no acute distress HEENT: Normocephalic, atraumatic, moist mucous membranes. Neck: No lymphadenopathy or thyromegaly Cardiac: Regular rate and rhythm, no murmurs, normal S1, normal S2 Pulm: Clear to auscultation bilaterally. No wheezes, rhonchi, rales Abd: Nondistended, nontender to palpation, normal bowel sounds Ext: No edema bilateral lower extremities, WWP, dry skin Neuro: CN3-12 intact, 5/5 strength upper extremities, 5/5 LE bilaterally LABORATORY DATA: Reviewed IMAGING: CT head: Bone window settings demonstrate an intact bony calvarium. There is no evidence of skull fracture or incidental bony calvarial lesion. The visualized paranasal sinuses appear clear. No intraorbital abnormality is seen. On soft tissue window setting images; the lateral, third, and fourth ventricles are normal in size and position. Reynolds-white differentiation pattern is normal above and below the tentorium. Th ere are is no evidence of intracranial hemorrhage. No mass, edema, infarction, or midline shift is seen. No extra-axial fluid collection is appreciated. There is mild vascular calcification in the distal internal carotid arteries. Generalized volume loss is observed slightly more pronounced than on the 2011 study. There are small vessel atherosclerotic changes in the periventricular white matter. IMPRESSION: Mild generalized volume loss and small vessel changes. No acute intracranial abnormality. CT of C-spine: There is no evidence of cervical spine element fracture. No skull base fracture is seen. Cervical vertebral body heights are preserved. Alignment is normal. Facet joints are normally aligned bilaterally at each cervical level on multiplanar re-formations images. There is no evidence of intraspinal or paraspinal hematoma. No extra vertebral abnormality is seen. There is straightening of normal cervical lordosis. A ventral discectomy fusion plate is seen across the C 5 through C7 levels. The intervening discs are fused. the lung apices are clear. IMPRESSION: Status post ventral discectomy and fusion C5 through C7. Straightening. Did some degenerative disc disease changes and facet osteoarthritis. No acute bony abnormality. CXR: the lungs are symmetrically aerated and free of infiltrate. The pleural angles are sharp. The heart is not enlarged. Aorta is somewhat tortuous. Pulmonary vasculature is not increased. No acute bony abnormality. IMPRESSION: No active cardiopulmonary disease. Assessment: 76-year-old W with a history of HTN, HLD, GERD and depression, who recently had DVT and PE on eliquis, recently admitted to the ARU 06/13-06/27 s/p anterior discectomy with fusion and bone allograft of C5-6 and C6-7 on 06/06/2021 at [facility] and a recent presentation to the ED with chest pain with noted troponinemia and transferred to [facility] where she had an unremarkable clean LHC and TTE who now presents from home reporting increasing weakness and deconditioning and was admitted to medicine for deconditioning and PT//OT evaluation and has now been discharged to the ARU. PLAN: Deconditioning: -PT/OT per PM&R Hypertension. -Continue home metop tartrate 12.5mg BID Hyperlipidemia. -Continue home lipitor Depression and anxiety. -Continue home alprazolam History of DVT/PE. -continue home eliquis VS,Fishbone, I+O VS, Fishbone, I+O Laboratory Tests 08/11/21 08:36 Vital Signs Date Time Temp Pulse Resp B/P (MAP) Pulse Ox O2 Delivery O2 Flow Rate FiO2 08/11/21 08:43 80 100/57 08/11/21 06:00 98.4 17 96 Room Air I&O- Last 24 Hours up to 6 AM 08/11/21 06:00 Intake Total 150 ml Balance 150 ml JAYLEN FRAZIER MD Aug 11, 2021 12:26
[2021-08-11] MEDS: oxyCODONE 5MG TAB PO PRN ×2 (13:45→21:32)
[2021-08-11 14:00] VITALS: BP 138/68
[2021-08-11 20:00] VITALS: BP 118/55
[2021-08-11] MEDS: SENNA 8.6 MG TAB (SENOKOT) PO SCH (21:00)
[2021-08-12 06:00] VITALS: BP 134/62
[2021-08-12] MEDS: REMEDY PHYTOPLEX Z-GUARD PASTE 113GM TUBE (FROM STOREROOM PRODUCT) TOP SCH ×3 (09:00→20:40)
[2021-08-12] MEDS: DOCUSATE SODIUM 100MG CAPSULE PO SCH ×2 (09:00→20:39)
[2021-08-12] MEDS: METOPROLOL TART 12.5 MG PER 1/2 TAB PO SCH ×2 (09:00→20:39)
[2021-08-12] MEDS: ASPIRIN 81MG ENTERIC TABLET PO SCH (09:00)
[2021-08-12] MEDS: SERTRALINE 100 MG TAB PO SCH (09:07)
[2021-08-12] MEDS: LACTOBACILLUS ACIDOPHILUS CAP (BACID) PO SCH ×4 (09:07→20:38)
[2021-08-12] MEDS: MAGNESIUM OXIDE 400MG TAB (MAG-OX) PO SCH ×2 (09:09→20:38)
[2021-08-12] MEDS: oxyCODONE 5MG TAB PO PRN ×3 (09:11→20:37)
[2021-08-12] MEDS: amLODIPine 5 MG TAB PO SCH (09:13)
[2021-08-12] MEDS: OMEPRAZOLE 20 MG CAP PO SCH (09:14)
[2021-08-12] MEDS: POTASSIUM CHLORIDE 10MEQ SR TABLET PO SCH (09:15)
[2021-08-12] MEDS: ACETAMINOPHEN 500 MG TAB PO SCH ×3 (09:15→20:38)
[2021-08-12] MEDS: APIXABAN 5 MG TAB (ELIQUIS) PO SCH ×2 (09:15→20:38)
[2021-08-12] MEDS: ATORVASTATIN 20 MG TAB PO SCH (09:16)
[2021-08-12] MEDS: FUROSEMIDE 40 MG TAB PO SCH (09:16)
[2021-08-12] MEDS: allopurinoL 300 MG TAB PO SCH (09:17)
[2021-08-12 14:00] VITALS: BP 122/59
[2021-08-12 20:00] VITALS: BP 106/64
[2021-08-12] MEDS: ALPRAZolam 0.25 MG TAB PO PRN (20:37)
[2021-08-12] MEDS: SENNA 8.6 MG TAB (SENOKOT) PO SCH (20:39)
[2021-08-13 06:00] VITALS: BP 123/64
[2021-08-13] MEDS: MAGNESIUM OXIDE 400MG TAB (MAG-OX) PO SCH ×2 (08:53→21:36)
[2021-08-13] MEDS: LACTOBACILLUS ACIDOPHILUS CAP (BACID) PO SCH ×4 (08:53→21:35)
[2021-08-13] MEDS: ATORVASTATIN 20 MG TAB PO SCH (08:54)
[2021-08-13] MEDS: OMEPRAZOLE 20 MG CAP PO SCH (08:54)
[2021-08-13] MEDS: allopurinoL 300 MG TAB PO SCH (08:54)
[2021-08-13] MEDS: APIXABAN 5 MG TAB (ELIQUIS) PO SCH ×2 (08:54→21:37)
[2021-08-13] MEDS: METOPROLOL TART 12.5 MG PER 1/2 TAB PO SCH ×2 (08:54→21:00)
[2021-08-13] MEDS: POTASSIUM CHLORIDE 10MEQ SR TABLET PO SCH (08:54)
[2021-08-13] MEDS: SERTRALINE 100 MG TAB PO SCH (08:55)
[2021-08-13] MEDS: FUROSEMIDE 40 MG TAB PO SCH (08:56)
[2021-08-13] MEDS: DOCUSATE SODIUM 100MG CAPSULE PO SCH ×2 (08:56→21:00)
[2021-08-13] MEDS: ACETAMINOPHEN 500 MG TAB PO SCH ×3 (08:56→21:36)
[2021-08-13] MEDS: REMEDY PHYTOPLEX Z-GUARD PASTE 113GM TUBE (FROM STOREROOM PRODUCT) TOP SCH ×3 (08:56→21:00)
[2021-08-13 14:00] VITALS: BP 123/63
[2021-08-13 20:00] VITALS: BP 103/55
[2021-08-13] MEDS: SENNA 8.6 MG TAB (SENOKOT) PO SCH (21:00)
[2021-08-13] MEDS: ALPRAZolam 0.25 MG TAB PO PRN (21:35)
[2021-08-13] MEDS: oxyCODONE 5MG TAB PO PRN (21:37)
[2021-08-14 05:54] LABS: BASO % 0.9 % (0.0-1.0); EOS # 0.1 10^3/uL (0.0-0.5); EOS % 2.5 % (0.0-3.0); HEMATOCRIT 36.7 % (36.0-47.0); HEMOGLOBIN 11.5 g/dl (12.0-15.5); LYMPH # 1.4 10^3/uL (1.5-5.0); MEAN CORPUSCULAR HGB CONC 31.3 g/dl (32.0-36.5); MEAN CORPUSCULAR VOLUME 102.2 fl (80.0-96.0); MONO # 0.4 10^3/uL (0.0-0.8); MONO % 9.5 % (2.0-8.0); NEUTROPHILS # 2.4 10^3/uL (1.5-8.5); NEUTROPHILS % 54.4 % (36.0-66.0); PLATELET COUNT, AUTOMATED 287 10^3/uL (150-450); RED BLOOD COUNT 3.59 10^6/uL (4.00-5.40); WHITE BLOOD COUNT 4.4 10^3/uL (4.0-10.0)
[2021-08-14 06:22] VITALS: BP 101/58
[2021-08-14 06:22] LABS: BLOOD UREA NITROGEN 18 MG/DL (7-18); CALCIUM LEVEL 8.6 MG/DL (8.8-10.2); CARBON DIOXIDE LEVEL 29 MEQ/L (21-32); CHLORIDE LEVEL 111 MEQ/L (98-107); CREATININE FOR GFR 0.66 MG/DL (0.55-1.30); GLOMERULAR FILTRATION RATE > 60.0 (>39); GLUCOSE, FASTING 89 MG/DL (70-100); POTASSIUM SERUM 3.4 MEQ/L (3.5-5.1); SODIUM LEVEL 146 MEQ/L (136-145)
[2021-08-14] MEDS: REMEDY PHYTOPLEX Z-GUARD PASTE 113GM TUBE (FROM STOREROOM PRODUCT) TOP SCH ×3 (09:00→21:00)
[2021-08-14] MEDS: FUROSEMIDE 40 MG TAB PO SCH (09:00)
[2021-08-14] MEDS: DOCUSATE SODIUM 100MG CAPSULE PO SCH ×2 (09:00→21:00)
[2021-08-14] MEDS: APIXABAN 5 MG TAB (ELIQUIS) PO SCH ×2 (09:29→21:30)
[2021-08-14] MEDS: LACTOBACILLUS ACIDOPHILUS CAP (BACID) PO SCH ×4 (09:29→21:30)
[2021-08-14] MEDS: ATORVASTATIN 20 MG TAB PO SCH (09:29)
[2021-08-14] MEDS: SERTRALINE 100 MG TAB PO SCH (09:30)
[2021-08-14] MEDS: POTASSIUM CHLORIDE 10MEQ SR TABLET PO SCH (09:30)
[2021-08-14] MEDS: OMEPRAZOLE 20 MG CAP PO SCH (09:30)
[2021-08-14] MEDS: ALPRAZolam 0.25 MG TAB PO PRN (09:30)
[2021-08-14] MEDS: allopurinoL 300 MG TAB PO SCH (09:30)
[2021-08-14] MEDS: METOPROLOL TART 12.5 MG PER 1/2 TAB PO SCH ×2 (09:31→21:00)
[2021-08-14] MEDS: ACETAMINOPHEN 500 MG TAB PO SCH ×3 (09:33→21:31)
[2021-08-14] MEDS: MAGNESIUM OXIDE 400MG TAB (MAG-OX) PO SCH ×2 (09:34→21:30)
--- NOTE | 2021-08-14 10:46 | IPNPDOC ---
PM&R Progress Note DATE OF SERVICE: Aug 14, 2021 Financial Assistance Advisor Progress Note SUBJECTIVE: Patient reporting her legs have a tingling sensation worse at night. She states she is hesitant to go home as early as Saturday. REVIEW OF SYSTEMS: The following is a completed review of systems and has been reviewed. Review of systems otherwise unremarkable. PAIN: Patient self reports no pain EYES: No recent vision changes EARS, NOSE, & THROAT: No throat pain, or dysphagia, or rhinorrhea CARDIOVASCULAR: Denies chest pain or palpitations PULMONARY: Denies shortness of breath GASTROINTESTINAL: Denies constipation/diarrhea GENITOURINARY:denies dysuria or incontinence MUSCULOSKELETAL: bilat LE weakness NEUROLOGICAL: denies tremor or paresthesias HEMATOLOGICAL: denies easy bruising SKIN: denies rash PSYCHIATRIC: Unremarkable All other review of systems found to be negative. PHYSICAL EXAMINATION: VITAL SIGNS: Please see below. GENERAL: Pleasant and cooperative. No acute distress. HEENT: PERRL. Extraocular movements intact. Clear conjunctiva CARDIOVASCULAR: Regular rate and rhythm. No murmurs, rubs, or gallops LUNGS: Clear to auscultation bilaterally. No wheezes. No rhonchi ABDOMEN: Soft, nontender, nondistended. Positive bowel sounds. Normal active bowel sounds NEUROLOGICAL: Alert and oriented times three. Cranial nerves II through XII grossly intact. Sensation grossly intact all 4 limbs. EXTREMITIES: 5\5 strength bilateral upper extremities. 4\5 strength right lower extremity. 5-/5 strength in left lower extremity. ASSESSMENT:76-year-old F with past medical history of cervical stenosis with bilat LE weakness who presents with multiple falls in setting of cervical stenosis PLAN: 1. Rehab- PT/OT advance mobility and ADLs, strengthen/stretch/maintain ROM al 4limbs, ambulating with RW 2. Neuro- cervical stenosis with LE weakness s/p surgery with residual LE weakness contributing to recent falls and new deficits in mobility and ADLs 3. Cardiac- hx of HTN, patient with soft BPs, will add low dose metoprolol given recent NSTEMI and improving, but elevated troponins, cont lasix -HLD- cont statin -medicine consulted to assist in overall management 4. Resp- monitor for infection -patient reporting bandlike chest tension that has been ongoing, suspect pleuritis from PEs- cont tylenol 5. GI- hx of C diff, monitor for loose stools-stable 6. DVT with PE- on eliquis 7. Psych- zoloft and xanax for depression/anxiety 8. Pain- tylenol and oxycodone, will add evening gabapentin 9.Dispo- tbd Allergies Coded Allergies: No Known Allergies (Unverified , 04/26/21) Vital Signs Vital Signs Date Time Temp Pulse Resp B/P (MAP) Pulse Ox O2 Delivery O2 Flow Rate FiO2 08/14/21 09:31 85 121/64 08/14/21 06:22 97.2 18 96 Room Air Laboratory Data CBC/BMP Laboratory Tests 08/14/21 05:36 Labs 24H Laboratory Tests 2 08/14/21 05:36: Immature Granulocyte % (Auto) 0.7, Neutrophils (%) (Auto) 54.4, Lymphocytes (%) (Auto) 32.0, Monocytes (%) (Auto) 9.5H, Eosinophils (%) (Auto) 2.5, Basophils (%) (Auto) 0.9, Neutrophils # (Auto) 2.4, Lymphocytes # (Auto) 1.4L, Monocytes # (Auto) 0.4, Eosinophils # (Auto) 0.1, Basophils # (Auto) 0.0, Nucleated Red Blood Cells % (auto) 0.0, Anion Gap 6L, Glomerular Filtration Rate > 60.0, Calcium Level 8.6L Current Medications Current Medications Current Medications Medications (Trade) Dose Ordered Sig/Lou Route PRN Reason Start Time Stop Time Status Last Admin Dose Admin Acetaminophen (Tylenol Tab) 1,000 mg TID PO 08/10/21 21:00 08/14/21 09:33 Allopurinol (Zyloprim) 300 mg DAILY PO 08/11/21 09:00 08/14/21 09:30 Alprazolam (Xanax) 0.25 mg BIDP PRN PO ANXIETY 08/10/21 15:10 08/14/21 09:30 Amlodipine Besylate (Norvasc) 5 mg DAILY PO 08/11/21 09:00 08/12/21 09:57 DC Apixaban (Eliquis) 5 mg BID PO 08/10/21 21:00 08/14/21 09:29 Aspirin (Ecotrin) 81 mg DAILY PO 08/11/21 09:00 08/12/21 09:57 DC Atorvastatin Calcium (Lipitor) 40 mg DAILY PO 08/11/21 09:00 08/14/21 09:29 Bisacodyl (Dulcolax Suppository) 10 mg DAILYPRN PRN ME CONSTIPATION 08/10/21 15:10 Docusate Sodium (Colace) 100 mg BID PO 08/10/21 21:00 Furosemide (Lasix) 40 mg DAILY PO 08/11/21 09:00 08/12/21 09:16 Lactobacillus Acidophilus (Bacid) 1 ea WMHS PO 08/10/21 18:00 08/14/21 09:29 Magnesium Oxide (Mag-Ox) 800 mg BID PO 08/10/21 21:00 08/14/21 09:34 Metoprolol Tartrate (Lopressor) 12.5 mg BID PO 08/10/21 21:00 08/14/21 09:31 Omeprazole (PriLOSEC) 40 mg DAILY PO 08/11/21 09:00 08/14/21 09:30 Oxycodone HCl (Roxicodone, Oxyir) 5 mg Q4HP PRN PO MODERATE PAIN (PS 5-7) 08/10/21 15:10 08/13/21 21:37 Polyethylene Glycol (Miralax) 1 pkt DAILY PRN PO CONSTIPATION 08/10/21 15:10 Potassium Chloride (Micro-K Extencaps) 10 meq DAILY PO 08/11/21 09:00 08/14/21 09:30 Senna (Senokot) 1 tab QHS PO 08/10/21 21:00 Sertraline HCl (Zoloft) 100 mg DAILY PO 08/11/21 09:00 08/14/21 09:30 JANELLE CHUN MD Aug 14, 2021 10:46
[2021-08-14] MEDS ORDERED: POTASSIUM CHLORIDE 10MEQ SR TABLET PO ONE (11:00)
--- NOTE | 2021-08-14 13:17 | IPNPDOC ---
Text Note Date of Service The patient was seen on 08/14/21. NOTE Ms. Stanton is doing good. No overnight events OBJECTIVE: VITAL SIGNS: Please see below. General: Alert and oriented female patient who was sitting up, conversational and in no acute distress HEENT: Normocephalic, atraumatic, moist mucous membranes. Neck: No lymphadenopathy or thyromegaly Cardiac: Regular rate and rhythm, no murmurs, normal S1, normal S2 Pulm: Clear to auscultation bilaterally. No wheezes, rhonchi, rales Abd: Nondistended, nontender to palpation, normal bowel sounds Ext: No edema bilateral lower extremities, WWP, dry skin Neuro: CN3-12 intact, 5/5 strength upper extremities, 5/5 LE bilaterally LABORATORY DATA: Reviewed IMAGING: CT of C-spine: Status post ventral discectomy and fusion C5 through C7. Straightening. Did some degenerative disc disease changes and facet osteoarthritis. No acute bony abnormality. Assessment: 76-year-old W with a history of HTN, HLD, GERD and depression, who recently had DVT and PE on eliquis, recently admitted to the ARU 06/13-06/27 s/p anterior discectomy with fusion and bone allograft of C5-6 and C6-7 on 06/06/2021 at [facility] and a recent presentation to the ED with chest pain with noted troponinemia and transferred to [facility] where she had an unremarkable clean LHC and TTE who now presents from home reporting increasing weakness and deconditioning and was admitted to medicine for deconditioning and PT//OT evaluation and has now been discharged to the ARU. PLAN: 1. Deconditioning: PT/OT per PM&R 2. Hypertension. Continue home metop tartrate 12.5mg BID 3. Hyperlipidemia. Continue home lipitor 4. Depression and anxiety. Continue home alprazolam 5. History of DVT/PE. continue home eliquis Disposition as per primary Silvestre MORENO I+O Silvestre MORENO I+O Laboratory Tests 08/14/21 05:36 Vital Signs Date Time Temp Pulse Resp B/P (MAP) Pulse Ox O2 Delivery O2 Flow Rate FiO2 08/14/21 09:31 85 121/64 08/14/21 06:22 97.2 18 96 Room Air I&O- Last 24 Hours up to 6 AM 08/14/21 06:00 Intake Total 540 ml Balance 540 ml MARTA ASHLEY MD Aug 14, 2021 13:17
[2021-08-14] MEDS: oxyCODONE 5MG TAB PO PRN ×2 (13:20→21:31)
[2021-08-14 14:00] VITALS: BP 106/57
[2021-08-14] MEDS: FUROSEMIDE 20 MG TAB PO SCH (17:28)
[2021-08-14 20:04] VITALS: BP 102/56
[2021-08-14] MEDS: SENNA 8.6 MG TAB (SENOKOT) PO SCH (21:00)
[2021-08-14] MEDS: GABAPENTIN 100 MG CAP PO SCH (21:30)
[2021-08-15 04:41] VITALS: BP 122/69
[2021-08-15 07:05] LABS: BLOOD UREA NITROGEN 19 MG/DL (7-18); CALCIUM LEVEL 8.1 MG/DL (8.8-10.2); CARBON DIOXIDE LEVEL 27 MEQ/L (21-32); CHLORIDE LEVEL 113 MEQ/L (98-107); CREATININE FOR GFR 0.64 MG/DL (0.55-1.30); GLOMERULAR FILTRATION RATE > 60.0 (>39); GLUCOSE, FASTING 85 MG/DL (70-100); POTASSIUM SERUM 3.9 MEQ/L (3.5-5.1); SODIUM LEVEL 146 MEQ/L (136-145)
[2021-08-15] MEDS: FUROSEMIDE 20 MG TAB PO SCH ×2 (08:32→17:00)
[2021-08-15] MEDS: DOCUSATE SODIUM 100MG CAPSULE PO SCH ×2 (08:32→20:37)
[2021-08-15] MEDS: LACTOBACILLUS ACIDOPHILUS CAP (BACID) PO SCH ×4 (08:33→20:39)
[2021-08-15] MEDS: SERTRALINE 100 MG TAB PO SCH (08:33)
[2021-08-15] MEDS: APIXABAN 5 MG TAB (ELIQUIS) PO SCH ×2 (08:33→20:40)
[2021-08-15] MEDS: allopurinoL 300 MG TAB PO SCH (08:33)
[2021-08-15] MEDS: ALPRAZolam 0.25 MG TAB PO PRN (08:33)
[2021-08-15] MEDS: REMEDY PHYTOPLEX Z-GUARD PASTE 113GM TUBE (FROM STOREROOM PRODUCT) TOP SCH ×3 (08:33→20:38)
[2021-08-15] MEDS: ATORVASTATIN 20 MG TAB PO SCH (08:34)
[2021-08-15] MEDS: OMEPRAZOLE 20 MG CAP PO SCH (08:34)
[2021-08-15] MEDS: ACETAMINOPHEN 500 MG TAB PO SCH ×3 (08:35→20:40)
[2021-08-15] MEDS: POTASSIUM CHLORIDE 10MEQ SR TABLET PO SCH (08:35)
[2021-08-15] MEDS: oxyCODONE 5MG TAB PO PRN ×3 (08:35→20:40)
[2021-08-15] MEDS: MAGNESIUM OXIDE 400MG TAB (MAG-OX) PO SCH ×2 (08:36→20:40)
[2021-08-15] MEDS: METOPROLOL TART 12.5 MG PER 1/2 TAB PO SCH ×2 (08:36→20:38)
--- NOTE | 2021-08-15 10:00 | IPNPDOC ---
PM&R Progress Note DATE OF SERVICE: Aug 15, 2021 Scientologist Progress Note SUBJECTIVE: Patient reporting her legs did not bother her last night since starting gabapentin. She would like to try daytime dose to see if it helps with her pleuritis. She says the tylenol is helping with this discomfort. REVIEW OF SYSTEMS: The following is a completed review of systems and has been reviewed. Review of systems otherwise unremarkable. PAIN: Patient self reports chest wall band-like pain (ongoing since dx of PE) EYES: No recent vision changes EARS, NOSE, & THROAT: No throat pain, or dysphagia, or rhinorrhea CARDIOVASCULAR: Denies chest pain or palpitations PULMONARY: Denies shortness of breath GASTROINTESTINAL: Denies constipation/diarrhea GENITOURINARY:denies dysuria or incontinence MUSCULOSKELETAL: bilat LE weakness NEUROLOGICAL: denies tremor or paresthesias HEMATOLOGICAL: denies easy bruising SKIN: denies rash PSYCHIATRIC: Unremarkable All other review of systems found to be negative. PHYSICAL EXAMINATION: VITAL SIGNS: Please see below. GENERAL: Pleasant and cooperative. No acute distress. HEENT: PERRL. Extraocular movements intact. Clear conjunctiva CARDIOVASCULAR: Regular rate and rhythm. No murmurs, rubs, or gallops LUNGS: Clear to auscultation bilaterally. No wheezes. No rhonchi ABDOMEN: Soft, nontender, nondistended. Positive bowel sounds. Normal active bowel sounds NEUROLOGICAL: Alert and oriented times three. Cranial nerves II through XII grossly intact. Sensation grossly intact all 4 limbs. EXTREMITIES: 5\5 strength bilateral upper extremities. 4\5 strength right lower extremity. 5-/5 strength in left lower extremity. ASSESSMENT:76-year-old F with past medical history of cervical stenosis with bilat LE weakness who presents with multiple falls in setting of cervical stenosis PLAN: 1. Rehab- PT/OT advance mobility and ADLs, strengthen/stretch/maintain ROM al 4limbs, ambulating with RW 2. Neuro- cervical stenosis with LE weakness s/p surgery with residual LE weakness contributing to recent falls and new deficits in mobility and ADLs 3. Cardiac- hx of HTN, patient with soft BPs, will add low dose metoprolol given recent NSTEMI and improving, but elevated troponins, cont lasix -HLD- cont statin -medicine consulted to assist in overall management 4. Resp- monitor for infection -patient reporting bandlike chest tension that has been ongoing, suspect pleuritis from PEs- cont tylenol 5. GI- hx of C diff, monitor for loose stools-stable 6. DVT with PE- on eliquis 7. Psych- zoloft and xanax for depression/anxiety 8. Pain- tylenol and oxycodone, cont evening gabapentin, will add daytime dosing as well 9.Dispo- 08-20-21 to home, progressing towards goals, will work on higher level IADLs and aim for community level ambulation prior to d/c Allergies Coded Allergies: No Known Allergies (Unverified , 04/26/21) Vital Signs Vital Signs Date Time Temp Pulse Resp B/P (MAP) Pulse Ox O2 Delivery O2 Flow Rate FiO2 08/15/21 09:05 18 08/15/21 08:36 80 122/69 08/15/21 04:41 97.0 97 Room Air Laboratory Data CBC/BMP Laboratory Tests 08/15/21 06:22 Labs 24H Laboratory Tests 2 08/15/21 06:22: Anion Gap 6L, Glomerular Filtration Rate > 60.0, Calcium Level 8.1L Current Medications Current Medications Current Medications Medications (Trade) Dose Ordered Sig/Lou Route PRN Reason Start Time Stop Time Status Last Admin Dose Admin Acetaminophen (Tylenol Tab) 1,000 mg TID PO 08/10/21 21:00 08/15/21 08:35 Allopurinol (Zyloprim) 300 mg DAILY PO 08/11/21 09:00 08/15/21 08:33 Alprazolam (Xanax) 0.25 mg BIDP PRN PO ANXIETY 08/10/21 15:10 08/15/21 08:33 Amlodipine Besylate (Norvasc) 5 mg DAILY PO 08/11/21 09:00 08/12/21 09:57 DC Apixaban (Eliquis) 5 mg BID PO 08/10/21 21:00 08/15/21 08:33 Aspirin (Ecotrin) 81 mg DAILY PO 08/11/21 09:00 08/12/21 09:57 DC Atorvastatin Calcium (Lipitor) 40 mg DAILY PO 08/11/21 09:00 08/15/21 08:34 Bisacodyl (Dulcolax Suppository) 10 mg DAILYPRN PRN MD CONSTIPATION 08/10/21 15:10 Docusate Sodium (Colace) 100 mg BID PO 08/10/21 21:00 Furosemide (Lasix) 20 mg BID@09,17 PO 08/14/21 17:00 08/14/21 17:28 Furosemide (Lasix) 40 mg DAILY PO 08/11/21 09:00 08/14/21 10:46 DC 08/12/21 09:16 Gabapentin (Neurontin) 200 mg QHS PO 08/14/21 21:00 08/14/21 21:30 Lactobacillus Acidophilus (Bacid) 1 ea WMHS PO 08/10/21 18:00 08/15/21 08:33 Magnesium Oxide (Mag-Ox) 800 mg BID PO 08/10/21 21:00 08/15/21 08:36 Metoprolol Tartrate (Lopressor) 12.5 mg BID PO 08/10/21 21:00 08/15/21 08:36 Omeprazole (PriLOSEC) 40 mg DAILY PO 08/11/21 09:00 08/15/21 08:34 Oxycodone HCl (Roxicodone, Oxyir) 5 mg Q4HP PRN PO MODERATE PAIN (PS 5-7) 08/10/21 15:10 08/15/21 08:35 Polyethylene Glycol (Miralax) 1 pkt DAILY PRN PO CONSTIPATION 08/10/21 15:10 Potassium Chloride (Micro-K Extencaps) 10 meq DAILY PO 08/11/21 09:00 08/15/21 08:35 Senna (Senokot) 1 tab QHS PO 08/10/21 21:00 Sertraline HCl (Zoloft) 100 mg DAILY PO 08/11/21 09:00 08/15/21 08:33 JANELLE CHUN MD Aug 15, 2021 10:00
[2021-08-15 14:00] VITALS: BP 112/60
[2021-08-15] MEDS: GABAPENTIN 100 MG CAP PO SCH ×2 (14:37→20:39)
[2021-08-15] MEDS ORDERED: HOME MED LIST COMPLETE! XX SCH (15:20)
[2021-08-15 20:00] VITALS: BP 93/54
[2021-08-15] MEDS: SENNA 8.6 MG TAB (SENOKOT) PO SCH (20:38)
[2021-08-16 06:00] VITALS: BP 119/66
[2021-08-16 07:31] LABS: BASO % 0.8 % (0.0-1.0); EOS # 0.1 10^3/uL (0.0-0.5); EOS % 2.1 % (0.0-3.0); HEMATOCRIT 35.3 % (36.0-47.0); HEMOGLOBIN 10.9 g/dl (12.0-15.5); LYMPH # 1.6 10^3/uL (1.5-5.0); MEAN CORPUSCULAR HEMOGLOBIN 31.9 pg (27.0-33.0); MEAN CORPUSCULAR HGB CONC 30.9 g/dl (32.0-36.5); MEAN CORPUSCULAR VOLUME 103.2 fl (80.0-96.0); MONO # 0.4 10^3/uL (0.0-0.8); MONO % 9.2 % (2.0-8.0); NEUTROPHILS # 2.6 10^3/uL (1.5-8.5); NEUTROPHILS % 53.3 % (36.0-66.0); PLATELET COUNT, AUTOMATED 267 10^3/uL (150-450); RED BLOOD COUNT 3.42 10^6/uL (4.00-5.40); WHITE BLOOD COUNT 4.8 10^3/uL (4.0-10.0)
[2021-08-16 07:48] LABS: BLOOD UREA NITROGEN 20 MG/DL (7-18); CALCIUM LEVEL 8.2 MG/DL (8.8-10.2); CARBON DIOXIDE LEVEL 28 MEQ/L (21-32); CHLORIDE LEVEL 112 MEQ/L (98-107); CREATININE FOR GFR 0.65 MG/DL (0.55-1.30); GLOMERULAR FILTRATION RATE > 60.0 (>39); GLUCOSE, FASTING 76 MG/DL (70-100); POTASSIUM SERUM 4.2 MEQ/L (3.5-5.1); SODIUM LEVEL 145 MEQ/L (136-145)
[2021-08-16] MEDS: METOPROLOL TART 12.5 MG PER 1/2 TAB PO SCH ×2 (09:00→21:01)
[2021-08-16] MEDS: FUROSEMIDE 20 MG TAB PO SCH ×2 (09:00→17:44)
[2021-08-16] MEDS: DOCUSATE SODIUM 100MG CAPSULE PO SCH ×2 (09:00→21:00)
[2021-08-16] MEDS: REMEDY PHYTOPLEX Z-GUARD PASTE 113GM TUBE (FROM STOREROOM PRODUCT) TOP SCH ×3 (09:00→21:00)
--- NOTE | 2021-08-16 09:01 | IPNPDOC ---
PM&R Progress Note DATE OF SERVICE: Aug 16, 2021 Superintendent Of Schools Progress Note SUBJECTIVE: Patient reporting she feels good today and is working on higher level ADLs. REVIEW OF SYSTEMS: The following is a completed review of systems and has been reviewed. Review of systems otherwise unremarkable. PAIN: Patient self reports chest wall band-like pain (ongoing since dx of PE) EYES: No recent vision changes EARS, NOSE, & THROAT: No throat pain, or dysphagia, or rhinorrhea CARDIOVASCULAR: Denies chest pain or palpitations PULMONARY: Denies shortness of breath GASTROINTESTINAL: Denies constipation/diarrhea GENITOURINARY:denies dysuria or incontinence MUSCULOSKELETAL: bilat LE weakness NEUROLOGICAL: denies tremor or paresthesias HEMATOLOGICAL: denies easy bruising SKIN: denies rash PSYCHIATRIC: Unremarkable All other review of systems found to be negative. PHYSICAL EXAMINATION: VITAL SIGNS: Please see below. GENERAL: Pleasant and cooperative. No acute distress. HEENT: PERRL. Extraocular movements intact. Clear conjunctiva CARDIOVASCULAR: Regular rate and rhythm. No murmurs, rubs, or gallops LUNGS: Clear to auscultation bilaterally. No wheezes. No rhonchi ABDOMEN: Soft, nontender, nondistended. Positive bowel sounds. Normal active bowel sounds NEUROLOGICAL: Alert and oriented times three. Cranial nerves II through XII grossly intact. Sensation grossly intact all 4 limbs. EXTREMITIES: 5\5 strength bilateral upper extremities. 4\5 strength right lower extremity. 5-/5 strength in left lower extremity. ASSESSMENT:76-year-old F with past medical history of cervical stenosis with bilat LE weakness who presents with multiple falls in setting of cervical stenosis PLAN: 1. Rehab- PT/OT advance mobility and ADLs, strengthen/stretch/maintain ROM al 4limbs, ambulating further with RW 2. Neuro- cervical stenosis with LE weakness s/p surgery with residual LE weakness contributing to recent falls and new deficits in mobility and ADLs 3. Cardiac- hx of HTN, patient with soft BPs, will add low dose metoprolol given recent NSTEMI and improving, but elevated troponins, cont lasix -HLD- cont statin -medicine consulted to assist in overall management 4. Resp- monitor for infection -patient reporting bandlike chest tension that has been ongoing, suspect pleuritis from PEs- cont tylenol 5. GI- hx of C diff, monitor for loose stools-stable 6. DVT with PE- on eliquis 7. Psych- zoloft and xanax for depression/anxiety 8. Pain- tylenol and oxycodone, cont evening gabapentin and daytime dosing as well 9.Dispo- 08-20-21 to home, progressing towards goals, will work on higher level IADLs and aim for community level ambulation prior to d/c Allergies Coded Allergies: No Known Allergies (Unverified , 04/26/21) Vital Signs Vital Signs Date Time Temp Pulse Resp B/P (MAP) Pulse Ox O2 Delivery O2 Flow Rate FiO2 08/16/21 06:00 96.5 70 17 119/66 (83) 100 Room Air Laboratory Data CBC/BMP Laboratory Tests 08/16/21 07:05 Labs 24H Laboratory Tests 2 08/16/21 07:05: Immature Granulocyte % (Auto) 0.6, Neutrophils (%) (Auto) 53.3, Lymphocytes (%) (Auto) 34.0, Monocytes (%) (Auto) 9.2H, Eosinophils (%) (Auto) 2.1, Basophils (%) (Auto) 0.8, Neutrophils # (Auto) 2.6, Lymphocytes # (Auto) 1.6, Monocytes # (Auto) 0.4, Eosinophils # (Auto) 0.1, Basophils # (Auto) 0.0, Nucleated Red Blood Cells % (auto) 0.0, Anion Gap 5L, Glomerular Filtration Rate > 60.0, Calcium Level 8.2L Current Medications Current Medications Current Medications Medications (Trade) Dose Ordered Sig/Lou Route PRN Reason Start Time Stop Time Status Last Admin Dose Admin Acetaminophen (Tylenol Tab) 1,000 mg TID PO 08/10/21 21:00 08/15/21 20:40 Allopurinol (Zyloprim) 300 mg DAILY PO 08/11/21 09:00 08/15/21 08:33 Alprazolam (Xanax) 0.25 mg BIDP PRN PO ANXIETY 08/10/21 15:10 08/15/21 08:33 Amlodipine Besylate (Norvasc) 5 mg DAILY PO 08/11/21 09:00 08/12/21 09:57 DC Apixaban (Eliquis) 5 mg BID PO 08/10/21 21:00 08/15/21 20:40 Aspirin (Ecotrin) 81 mg DAILY PO 08/11/21 09:00 08/12/21 09:57 DC Atorvastatin Calcium (Lipitor) 40 mg DAILY PO 08/11/21 09:00 08/15/21 08:34 Bisacodyl (Dulcolax Suppository) 10 mg DAILYPRN PRN MD CONSTIPATION 08/10/21 15:10 Docusate Sodium (Colace) 100 mg BID PO 08/10/21 21:00 Furosemide (Lasix) 20 mg BID@09,17 PO 08/14/21 17:00 08/14/21 17:28 Furosemide (Lasix) 40 mg DAILY PO 08/11/21 09:00 08/14/21 10:46 DC 08/12/21 09:16 Gabapentin (Neurontin) 100 mg 0900,1400 PO 08/15/21 14:00 08/15/21 14:37 Gabapentin (Neurontin) 200 mg QHS PO 08/14/21 21:00 08/15/21 20:39 Home Med (Home Med List Complete!) ASDIRECTED XX 08/15/21 15:20 08/15/21 15:28 DC Lactobacillus Acidophilus (Bacid) 1 ea WMHS PO 08/10/21 18:00 08/15/21 20:39 Magnesium Oxide (Mag-Ox) 800 mg BID PO 08/10/21 21:00 08/15/21 20:40 Metoprolol Tartrate (Lopressor) 12.5 mg BID PO 08/10/21 21:00 08/15/21 08:36 Omeprazole (PriLOSEC) 40 mg DAILY PO 08/11/21 09:00 08/15/21 08:34 Oxycodone HCl (Roxicodone, Oxyir) 5 mg Q4HP PRN PO MODERATE PAIN (PS 5-7) 08/10/21 15:10 08/15/21 20:40 Polyethylene Glycol (Miralax) 1 pkt DAILY PRN PO CONSTIPATION 08/10/21 15:10 Potassium Chloride (Micro-K Extencaps) 10 meq DAILY PO 08/11/21 09:00 08/15/21 08:35 Senna (Senokot) 1 tab QHS PO 08/10/21 21:00 Sertraline HCl (Zoloft) 100 mg DAILY PO 08/11/21 09:00 08/15/21 08:33 JANELLE CHUN MD Aug 16, 2021 09:01
[2021-08-16] MEDS: APIXABAN 5 MG TAB (ELIQUIS) PO SCH ×2 (09:10→21:01)
[2021-08-16] MEDS: GABAPENTIN 100 MG CAP PO SCH ×3 (09:10→21:00)
[2021-08-16] MEDS: LACTOBACILLUS ACIDOPHILUS CAP (BACID) PO SCH ×4 (09:11→20:59)
[2021-08-16] MEDS: ATORVASTATIN 20 MG TAB PO SCH (09:11)
[2021-08-16] MEDS: POTASSIUM CHLORIDE 10MEQ SR TABLET PO SCH (09:11)
[2021-08-16] MEDS: allopurinoL 300 MG TAB PO SCH (09:11)
[2021-08-16] MEDS: OMEPRAZOLE 20 MG CAP PO SCH (09:11)
[2021-08-16] MEDS: SERTRALINE 100 MG TAB PO SCH (09:11)
[2021-08-16] MEDS: ACETAMINOPHEN 500 MG TAB PO SCH ×3 (09:12→21:02)
[2021-08-16] MEDS: MAGNESIUM OXIDE 400MG TAB (MAG-OX) PO SCH ×2 (09:12→21:00)
[2021-08-16] MEDS: oxyCODONE 5MG TAB PO PRN (11:26)
--- NOTE | 2021-08-16 11:40 | IPNPDOC ---
Text Note Date of Service The patient was seen on 08/16/21. NOTE Ms. Stanton is doing good. No overnight events OBJECTIVE: VITAL SIGNS: Please see below. General: Alert and oriented female patient who was sitting up, conversational and in no acute distress HEENT: Normocephalic, atraumatic, moist mucous membranes. Neck: No lymphadenopathy or thyromegaly Cardiac: Regular rate and rhythm, no murmurs, normal S1, normal S2 Pulm: Clear to auscultation bilaterally. No wheezes, rhonchi, rales Abd: Nondistended, nontender to palpation, normal bowel sounds Ext: No edema bilateral lower extremities, WWP, dry skin Neuro: CN3-12 intact, 5/5 strength upper extremities, 5/5 LE bilaterally LABORATORY DATA: Reviewed IMAGING: CT of C-spine: Status post ventral discectomy and fusion C5 through C7. Straightening. Did some degenerative disc disease changes and facet osteoarthritis. No acute bony abnormality. Assessment: 76-year-old W with a history of HTN, HLD, GERD and depression, who recently had DVT and PE on eliquis, recently admitted to the ARU 06/13-06/27 s/p anterior discectomy with fusion and bone allograft of C5-6 and C6-7 on 06/06/2021 at [facility] and a recent presentation to the ED with chest pain with noted troponinemia and transferred to [place] where she had an unremarkable clean LHC and TTE who now presents from home reporting increasing weakness and deconditioning and was admitted to medicine for deconditioning and PT//OT evaluation and has now been discharged to the ARU. PLAN: 1. Deconditioning: PT/OT per PM&R 2. Hypertension. Continue home metop tartrate 12.5mg BID 3. Hyperlipidemia. Continue home lipitor 4. Depression and anxiety. Continue home alprazolam 5. History of DVT/PE. continue home eliquis Disposition as per primary Silvestre MORENO, I+O Silvestre MORENO I+O Laboratory Tests 08/16/21 07:05 Vital Signs Date Time Temp Pulse Resp B/P (MAP) Pulse Ox O2 Delivery O2 Flow Rate FiO2 08/16/21 11:26 18 Room Air 08/16/21 09:00 87 116/67 08/16/21 06:00 96.5 100 I&O- Last 24 Hours up to 6 AM 08/16/21 06:00 Intake Total 910 ml Balance 910 ml MARTA ASHLEY MD Aug 16, 2021 11:40
[2021-08-16 14:00] VITALS: BP_SYST 109; BP_SYST 115; BP_DIAS 63; BP_DIAS 64
[2021-08-16 20:00] VITALS: BP 109/60
[2021-08-16] MEDS: SENNA 8.6 MG TAB (SENOKOT) PO SCH (21:00)
[2021-08-17 06:00] VITALS: BP 105/62
[2021-08-17] MEDS: ACETAMINOPHEN 500 MG TAB PO SCH ×3 (07:48→20:11)
[2021-08-17] MEDS: APIXABAN 5 MG TAB (ELIQUIS) PO SCH ×2 (07:48→20:10)
[2021-08-17] MEDS: LACTOBACILLUS ACIDOPHILUS CAP (BACID) PO SCH ×4 (07:49→20:10)
[2021-08-17] MEDS: oxyCODONE 5MG TAB PO PRN ×3 (07:49→20:11)
[2021-08-17] MEDS: OMEPRAZOLE 20 MG CAP PO SCH (07:49)
[2021-08-17] MEDS: SERTRALINE 100 MG TAB PO SCH (07:49)
[2021-08-17] MEDS: POTASSIUM CHLORIDE 10MEQ SR TABLET PO SCH (07:50)
[2021-08-17] MEDS: allopurinoL 300 MG TAB PO SCH (07:50)
[2021-08-17] MEDS: MAGNESIUM OXIDE 400MG TAB (MAG-OX) PO SCH ×2 (07:50→20:09)
[2021-08-17] MEDS: ATORVASTATIN 20 MG TAB PO SCH (07:50)
[2021-08-17] MEDS: GABAPENTIN 100 MG CAP PO SCH ×3 (07:50→20:10)
[2021-08-17] MEDS: METOPROLOL TART 12.5 MG PER 1/2 TAB PO SCH ×2 (07:51→20:10)
[2021-08-17] MEDS: DOCUSATE SODIUM 100MG CAPSULE PO SCH ×2 (07:51→20:12)
[2021-08-17] MEDS: FUROSEMIDE 20 MG TAB PO SCH ×2 (07:51→07:54)
[2021-08-17] MEDS: REMEDY PHYTOPLEX Z-GUARD PASTE 113GM TUBE (FROM STOREROOM PRODUCT) TOP SCH ×3 (07:51→20:12)
[2021-08-17] MEDS: FUROSEMIDE 40 MG TAB PO SCH (13:39)
[2021-08-17 14:00] VITALS: BP 128/58
[2021-08-17 20:00] VITALS: BP 101/52
[2021-08-17] MEDS: SENNA 8.6 MG TAB (SENOKOT) PO SCH (20:12)
[2021-08-18 06:00] VITALS: BP 115/67
[2021-08-18 06:51] LABS: BASO # 0.1 10^3/uL (0.0-0.2); BASO % 1.2 % (0.0-1.0); EOS # 0.1 10^3/uL (0.0-0.5); EOS % 1.9 % (0.0-3.0); HEMATOCRIT 33.6 % (36.0-47.0); HEMOGLOBIN 10.4 g/dl (12.0-15.5); LYMPH # 2.1 10^3/uL (1.5-5.0); LYMPH % 39.3 % (24.0-44.0); MEAN CORPUSCULAR HEMOGLOBIN 31.5 pg (27.0-33.0); MEAN CORPUSCULAR VOLUME 101.8 fl (80.0-96.0); MONO # 0.5 10^3/uL (0.0-0.8); NEUTROPHILS # 2.5 10^3/uL (1.5-8.5); PLATELET COUNT, AUTOMATED 255 10^3/uL (150-450); WHITE BLOOD COUNT 5.2 10^3/uL (4.0-10.0)
[2021-08-18 07:19] LABS: BLOOD UREA NITROGEN 20 MG/DL (7-18); CALCIUM LEVEL 8.4 MG/DL (8.8-10.2); CARBON DIOXIDE LEVEL 31 MEQ/L (21-32); CHLORIDE LEVEL 112 MEQ/L (98-107); CREATININE FOR GFR 0.71 MG/DL (0.55-1.30); GLOMERULAR FILTRATION RATE > 60.0 (>39); GLUCOSE, FASTING 78 MG/DL (70-100); POTASSIUM SERUM 3.6 MEQ/L (3.5-5.1); SODIUM LEVEL 145 MEQ/L (136-145)
[2021-08-18] MEDS: DOCUSATE SODIUM 100MG CAPSULE PO SCH ×2 (09:00→20:21)
[2021-08-18] MEDS: REMEDY PHYTOPLEX Z-GUARD PASTE 113GM TUBE (FROM STOREROOM PRODUCT) TOP SCH ×3 (09:00→20:21)
[2021-08-18] MEDS: allopurinoL 300 MG TAB PO SCH (09:54)
[2021-08-18] MEDS: LACTOBACILLUS ACIDOPHILUS CAP (BACID) PO SCH ×4 (09:54→20:42)
[2021-08-18] MEDS: ATORVASTATIN 20 MG TAB PO SCH (09:55)
[2021-08-18] MEDS: SERTRALINE 100 MG TAB PO SCH (09:55)
[2021-08-18] MEDS: POTASSIUM CHLORIDE 10MEQ SR TABLET PO SCH (09:55)
[2021-08-18] MEDS: METOPROLOL TART 12.5 MG PER 1/2 TAB PO SCH ×2 (09:55→15:47)
[2021-08-18] MEDS: OMEPRAZOLE 20 MG CAP PO SCH (09:55)
[2021-08-18] MEDS: MAGNESIUM OXIDE 400MG TAB (MAG-OX) PO SCH ×2 (09:55→20:42)
[2021-08-18] MEDS: oxyCODONE 5MG TAB PO PRN ×3 (09:56→20:41)
[2021-08-18] MEDS: APIXABAN 5 MG TAB (ELIQUIS) PO SCH ×2 (09:56→20:41)
[2021-08-18] MEDS: GABAPENTIN 100 MG CAP PO SCH ×3 (09:56→20:42)
[2021-08-18] MEDS: ACETAMINOPHEN 500 MG TAB PO SCH ×3 (10:03→16:22)
[2021-08-18 13:37] VITALS: BP 93/57
[2021-08-18] MEDS: FUROSEMIDE 40 MG TAB PO SCH (15:46)
[2021-08-18 20:00] VITALS: BP 92/52
[2021-08-18] MEDS: SENNA 8.6 MG TAB (SENOKOT) PO SCH (20:21)
[2021-08-19 06:00] VITALS: BP 98/58
[2021-08-19] MEDS: ACETAMINOPHEN 500 MG TAB PO SCH ×3 (06:36→21:20)
[2021-08-19] MEDS: DOCUSATE SODIUM 100MG CAPSULE PO SCH ×2 (09:00→21:00)
[2021-08-19] MEDS: REMEDY PHYTOPLEX Z-GUARD PASTE 113GM TUBE (FROM STOREROOM PRODUCT) TOP SCH ×3 (09:00→21:00)
[2021-08-19] MEDS: METOPROLOL TART 12.5 MG PER 1/2 TAB PO SCH ×2 (09:00→21:00)
[2021-08-19] MEDS: MAGNESIUM OXIDE 400MG TAB (MAG-OX) PO SCH ×2 (09:01→21:23)
[2021-08-19] MEDS: POTASSIUM CHLORIDE 10MEQ SR TABLET PO SCH (09:01)
[2021-08-19] MEDS: ALPRAZolam 0.25 MG TAB PO PRN (09:02)
[2021-08-19] MEDS: GABAPENTIN 100 MG CAP PO SCH ×3 (09:02→21:20)
[2021-08-19] MEDS: SERTRALINE 100 MG TAB PO SCH (09:02)
[2021-08-19] MEDS: allopurinoL 300 MG TAB PO SCH (09:02)
[2021-08-19] MEDS: APIXABAN 5 MG TAB (ELIQUIS) PO SCH ×2 (09:02→21:20)
[2021-08-19] MEDS: OMEPRAZOLE 20 MG CAP PO SCH (09:03)
[2021-08-19] MEDS: LACTOBACILLUS ACIDOPHILUS CAP (BACID) PO SCH ×4 (09:03→21:20)
[2021-08-19] MEDS: ATORVASTATIN 20 MG TAB PO SCH (09:03)
[2021-08-19] MEDS: oxyCODONE 5MG TAB PO PRN ×3 (09:35→21:20)
[2021-08-19] MEDS: FUROSEMIDE 40 MG TAB PO SCH (12:49)
[2021-08-19 14:00] VITALS: BP 130/64
[2021-08-19 20:00] VITALS: BP 106/59
[2021-08-19] MEDS: SENNA 8.6 MG TAB (SENOKOT) PO SCH (21:00)
[2021-08-20 06:00] VITALS: BP 121/66
[2021-08-20] MEDS ORDERED: ZOLO100T PO (07:42)
[2021-08-20] MEDS ORDERED: SLOWTAB2 PO (07:42)
[2021-08-20] MEDS ORDERED: ALLO300T2 PO (07:42)
[2021-08-20] MEDS ORDERED: FURO40TA2 PO (07:42)
[2021-08-20] MEDS ORDERED: ELIQ5TAB PO (07:42)
[2021-08-20] MEDS ORDERED: RISATAB3 PO (07:42)
[2021-08-20] MEDS ORDERED: ATOR40TA75 PO (07:42)
[2021-08-20] MEDS ORDERED: K-TA10TA PO (07:42)
[2021-08-20] MEDS ORDERED: OMEP40CA4 PO (07:42)
[2021-08-20] MEDS ORDERED: GABA-1171 PO (07:42)
[2021-08-20] MEDS ORDERED: POTA-136 PO (07:43)
[2021-08-20] MEDS: ALPRAZolam 0.25 MG TAB PO PRN (08:34)
[2021-08-20] MEDS: OMEPRAZOLE 20 MG CAP PO SCH (08:34)
[2021-08-20] MEDS: LACTOBACILLUS ACIDOPHILUS CAP (BACID) PO SCH ×2 (08:34→11:51)
[2021-08-20] MEDS: allopurinoL 300 MG TAB PO SCH (08:35)
[2021-08-20] MEDS: GABAPENTIN 100 MG CAP PO SCH (08:35)
[2021-08-20] MEDS: APIXABAN 5 MG TAB (ELIQUIS) PO SCH (08:35)
[2021-08-20] MEDS: POTASSIUM CHLORIDE 10MEQ SR TABLET PO SCH (08:35)
[2021-08-20] MEDS: SERTRALINE 100 MG TAB PO SCH (08:35)
[2021-08-20 08:36] VITALS: BP 121/66
[2021-08-20] MEDS: ACETAMINOPHEN 500 MG TAB PO SCH (08:36)
[2021-08-20] MEDS: DOCUSATE SODIUM 100MG CAPSULE PO SCH (08:36)
[2021-08-20] MEDS: MAGNESIUM OXIDE 400MG TAB (MAG-OX) PO SCH (08:36)
[2021-08-20] MEDS: METOPROLOL TART 12.5 MG PER 1/2 TAB PO SCH (08:36)
[2021-08-20] MEDS: ATORVASTATIN 20 MG TAB PO SCH (08:36)
[2021-08-20] MEDS: REMEDY PHYTOPLEX Z-GUARD PASTE 113GM TUBE (FROM STOREROOM PRODUCT) TOP SCH (08:37)
--- NOTE | 2021-08-22 16:40 | PMRDS ---
NAME: CIRILO HERNDON [facility] WT ID#: [id number] JOB: GURINDER: 08/20/2021 ACCT: [id number] DOCTOR: JANELLE CHUN MD PMR DISCHARGE SUMMARY DATE OF ADMISSION: 08/10/2021 DATE OF DISCHARGE: 08/20/2021 CHIEF COMPLAINT/DISCHARGE DIAGNOSIS: Weakness in the setting of cervical stenosis. HISTORY OF PRESENT ILLNESS: A 76-year-old female with a past medical history of depression, gastroesophageal reflux disease (GERD), hyperlipidemia, hypertension, cervical stenosis status post decompression surgery in May 2021, recent diagnosis of deep venous thrombosis (DVT) and pulmonary emboli (PE), on Eliquis, presented to [facility] Department ([facility] ED) with chest pain and found to have an non-ST elevation myocardial infarction (NSTEMI), after which she was transferred to [facility], where she had a left heart catheterization and transthoracic echocardiogram (TTE), both of which were unremarkable, and then later returned to [facility] on 08/01/2021, complaining of worsening weakness and difficulty walking. She was found to have tachycardia, persistently elevated cardiac enzymes, although they were trending down in the setting of her cervical stenosis and was noted to have new difficulties with ambulation and activities of daily living (ADLs) and deemed medically appropriate for discharge to acute rehabilitation unit (ARU). On initial evaluation, patient reports a band-like tension around her chest she has had for a few weeks now but denies chest pain. PAST MEDICAL HISTORY: As per history of present illness (HPI). HOSPITAL COURSE: Patient was admitted and enrolled in a comprehensive physical therapy (PT)/occupational therapy (OT) program. She received 24-hour nursing supervision, and weekly team meetings were held to discuss her progress. Patient was continued on Eliquis for her history of DVT with PE, and for her pruritus in the setting of PE she was maintained on Tylenol. Patient was also started on gabapentin for symptoms related to peripheral polyneuropathy in the setting of cervical stenosis, and her leg pain improved. She had persistent tachycardia, where she was treated with low-dose beta mala and notable weakness and gait impairment in the setting of cervical stenosis. She did, however, make steady gains in therapy and was deemed medically and functional stable to return home. DISCHARGE MEDICATIONS: As per instructions. FUNCTIONAL HISTORY ON DISCHARGE: Patient was modified independent from a mobility and ADL standpoint. Thank you for this referral.
== END 2021-08-20 12:45 | disposition home or self-care (01) | DRG 552 ==
LOC: M PM&R 18:00
PROVIDERS: ADMIT Physical Medicine & Rehabilitation; ATTEND Physical Medicine & Rehabilitation
DX: M48.02 Spinal stenosis, cervical region (principal); I67.82 Cerebral ischemia; F32.9 Major depressive disorder, single episode, unspecified; K21.9 Gastro-esophageal reflux disease without esophagitis; F41.9 Anxiety disorder, unspecified; E78.5 Hyperlipidemia, unspecified; I10 Essential (primary) hypertension; I25.2 Old myocardial infarction; R29.6 Repeated falls; R09.1 Pleurisy; R53.1 Weakness; R74.8 Abnormal levels of other serum enzymes; Z74.09 Other reduced mobility; Z74.1 Need for assistance with personal care; Z79.01 Long term (current) use of anticoagulants; Z79.899 Other long term (current) drug therapy; Z98.1 Arthrodesis status; Z86.711 Personal history of pulmonary embolism; Z86.718 Personal history of other venous thrombosis and embolism

== ENCOUNTER → 2021-09-07 | Outpatient (REF) | payer MEDICARE, BC ==
[~2021-09-07] MED LIST changes: +GABA-1171 PO
[2021-09-07 17:34] LABS: BASO % 0.5 % (0.0-1.0); EOS # 0.1 10^3/uL (0.0-0.5); HEMATOCRIT 41.8 % (36.0-47.0); LYMPH # 1.8 10^3/uL (1.5-5.0); LYMPH % 21.8 % (24.0-44.0); MEAN CORPUSCULAR HEMOGLOBIN 31.6 pg (27.0-33.0); MEAN CORPUSCULAR HGB CONC 31.1 g/dl (32.0-36.5); MEAN CORPUSCULAR VOLUME 101.5 fl (80.0-96.0); MONO # 0.5 10^3/uL (0.0-0.8); MONO % 5.9 % (2.0-8.0); NEUTROPHILS # 5.7 10^3/uL (1.5-8.5); NEUTROPHILS % 70.2 % (36.0-66.0); PLATELET COUNT, AUTOMATED 381 10^3/uL (150-450); RED BLOOD COUNT 4.12 10^6/uL (4.00-5.40); WHITE BLOOD COUNT 8.2 10^3/uL (4.0-10.0)
[2021-09-07 18:00] LABS: ALBUMIN 2.6 GM/DL (3.2-5.2); ALT/SGPT 25 U/L (12-78); BILIRUBIN,TOTAL 0.4 MG/DL (0.2-1.0); BLOOD UREA NITROGEN 14 MG/DL (7-18); CALCIUM LEVEL 9.6 MG/DL (8.8-10.2); CARBON DIOXIDE LEVEL 30 MEQ/L (21-32); CHLORIDE LEVEL 107 MEQ/L (98-107); CHOLESTEROL LEVEL 180 MG/DL (<200); CHOLESTEROL RISK RATIO 2.727 (<5); CREATININE FOR GFR 0.81 MG/DL (0.55-1.30); GLOMERULAR FILTRATION RATE > 60.0 (>39); GLUCOSE, FASTING 88 MG/DL (70-100); HDL CHOLESTEROL 66 MG/DL (>40); LDL CHOLESTEROL 80 MG/DL (<100); MAGNESIUM LEVEL 1.6 MG/DL (1.8-2.4); NON-HDL-C 114 MG/DL; SODIUM LEVEL 141 MEQ/L (136-145); TOTAL PROTEIN 5.8 GM/DL (6.4-8.2); TRIGLYCERIDES LEVEL 171 MG/DL (<150)
== END ==
LOC: M LABDRWAD 17:01
PROVIDERS: ATTEND Nurse Practitioner Adult Health
DX: I82.411 Acute embolism and thrombosis of right femoral vein (principal); E83.42 Hypomagnesemia; E78.00 Pure hypercholesterolemia, unspecified; L02.91 Cutaneous abscess, unspecified

== ENCOUNTER → 2021-10-23 | Outpatient (CLI) | payer MEDICARE, BC ==
--- NOTE | 2021-10-25 11:42 | REPVR ---
PROCEDURE INFORMATION: Exam: MR Cervical Spine Without Contrast Exam date and time: 10/23/2021 2:33 PM Age: 76 years old Clinical indication: Neck pain; Prior surgery; Surgery date: 6+ months; Surgery type: Fusion ; Additional info: Cervicalgia/radiculopathy TECHNIQUE: Imaging protocol: Multiplanar magnetic resonance images of the cervical spine without contrast. COMPARISON: CT Spine,cervical w/o contrast 08/09/2021 11:06 AM FINDINGS: Vertebrae: The patient has had prior anterior cervical fusion C5-C7. Surgical hardware causes moderate magnetic susceptibility artifact which limits evaluation of the surrounding anatomy. Spinal cord: Normal signal. No cord compression. C2-C3: No significant disc disease. No significant spinal stenosis. C3-C4: There is grade 1 anterior spondylolisthesis at this level. There is disc desiccation. There is a moderate disc/osteophyte complex that flattens the ventral thecal sac. There is bilateral uncovertebral joint arthropathy, worse on the right. There is moderate bilateral neural foraminal narrowing, right worse than left. There is mild spinal canal stenosis. C4-C5: There is disc desiccation. There is a moderate disc/osteophyte complex that flattens the ventral thecal sac. There is moderate bilateral uncovertebral joint arthropathy. There is mild bilateral neuroforaminal narrowing. There is mild spinal canal stenosis. C5-C6: There is a moderate disc/osteophyte complex that flattens the ventral thecal sac. There is moderate bilateral uncovertebral joint arthropathy. There is moderate bilateral neural foraminal narrowing. There is mild spinal canal stenosis. C6-C7: There is a moderate disc/osteophyte complex that flattens the ventral thecal sac. There is moderate bilateral uncovertebral joint arthropathy. There is moderate bilateral neural foraminal narrowing. There is mild spinal canal stenosis. C7-T1: There is degenerative disc disease including disc space narrowing and dessication. There is moderate bilateral uncovertebral joint arthropathy. There is mild/moderate bilateral neuroforaminal narrowing. Soft tissues: Unremarkable. Other findings: Examination is limited due to patient motion artifact. IMPRESSION: 1. Examination is limited due to patient motion artifact. 2. The patient has had prior anterior cervical fusion C5-C7. Surgical hardware causes moderate magnetic susceptibility artifact which limits evaluation of the surrounding anatomy. Please correlate with surgical history. 3. Multilevel degenerative changes causing varying degrees of spinal canal and neuroforaminal narrowing. Please see details above. PROCEDURE INFORMATION: Exam: MR Thoracic Spine Without Contrast Exam date and time: 10/23/2021 2:33 PM Age: 76 years old Clinical indication: Back pain. TECHNIQUE: Imaging protocol: Multiplanar magnetic resonance images of the thoracic spine without contrast. COMPARISON: CT Spine,cervical w/o contrast 08/09/2021 11:06 AM FINDINGS: Vertebrae: There is moderate thoracolumbar scoliosis. Spinal cord: See "Discs/Spinal canal/Neural foramina" finding. Discs/Spinal canal/Neural foramina: There are degenerative changes throughout the thoracic spine including disc space narrowing, disc desiccation, and disc bulging. There is no significant spinal canal stenosis or thoracic cord compression. Soft tissues: Unremarkable. IMPRESSION: 1. There are degenerative changes throughout the thoracic spine including disc space narrowing, disc desiccation, and disc bulging. There is no significant spinal canal stenosis or thoracic cord compression. 2. There is moderate thoracolumbar scoliosis. PROCEDURE INFORMATION: Exam: MR Lumbar Spine Without Contrast Exam date and time: 10/23/2021 2:33 PM Age: 76 years old Clinical indication: Back pain. TECHNIQUE: Imaging protocol: Multiplanar magnetic resonance images of the lumbar spine without intravenous contrast. COMPARISON: CT Spine,cervical w/o contrast 08/09/2021 11:06 AM FINDINGS: Vertebrae: Unremarkable. Spinal cord: Normal signal. No cord compression. L1-L2: There is disc space narrowing and desiccation. There are moderate degenerative end plate changes at this level. There is a moderate disc/osteophyte complex that flattens the ventral thecal sac. There is moderate bilateral neural foraminal narrowing. There is facet arthropathy and ligamentum flavum hypertrophy. There is mild spinal canal stenosis. L2-L3: There is disc space narrowing and desiccation. There are moderate degenerative end plate changes at this level. There is moderate left-sided neuroforaminal narrowing. There is mild right-sided neuroforaminal narrowing. There is facet arthropathy and ligamentum flavum hypertrophy. There is mild/moderate spinal canal stenosis. L3-L4: There is grade 1 anterior spondylolisthesis at this level. There is degenerative disc disease including disc space narrowing and dessication. Disc bulging extends into both neural foramen causing mild bilateral neural foraminal narrowing. There is exuberant bilateral facet arthropathy and ligamentum flavum hypertrophy. There is moderate spinal canal stenosis. L4-L5: There is disc space narrowing and desiccation. There are moderate degenerative end plate changes at this level. There is a moderate disc/osteophyte complex that flattens the ventral thecal sac. There is a superimposed right foraminal disc herniation. There is moderate bilateral neural foraminal narrowing, right worse than left. There is facet arthropathy and ligamentum flavum hypertrophy. There is mild spinal canal stenosis. L5-S1: There is effacement of the intervertebral disc at this level. Soft tissues: Unremarkable. IMPRESSION: Advanced multilevel degenerative changes causing varying degrees of spinal canal and neuroforaminal narrowing. Please see details above. Electronically signed by: Christofer Juarez On 10/25/2021 11:41:37 AM
--- NOTE | 2021-10-25 13:13 | REPVR ---
PROCEDURE INFORMATION: Exam: MR Lumbar Spine Without Contrast Exam date and time: 10/23/2021 1:24 PM Age: 76 years old Clinical indication: Low back pain; Prior surgery; Surgery date: 6+ months; Additional info: Cervicalgia/radiculopathy TECHNIQUE: Imaging protocol: Multiplanar magnetic resonance images of the lumbar spine without intravenous contrast. COMPARISON: CT ABD PELVIS W/O CONTRAST 07/03/2021 6:45 PM FINDINGS: Vertebrae: Scoliosis with dextroscoliosis of the lumbar and levoscoliosis of the thoracic spine. Right hip arthroplasty. Partial left laminectomy at L5/S1. Vertebral heights are maintained. Loss of disc spaces with disc desiccation at multiple levels. Complete loss of disc space at L5/S1. Spinal cord: Normal signal. No cord compression. L1-L2: Loss of disc space, disc desiccation, diffuse disc bulge with bilateral facet joint arthropathy and ligamentum flavum hypertrophy causing mild indentation on thecal sac, moderate left and mild right neural foraminal narrowing. L2-L3: Loss of disc space, disc desiccation, diffuse disc bulge with bilateral facet joint arthropathy and ligamentum flavum hypertrophy causing mild indentation on the thecal sac, moderate to severe left neural foraminal narrowing. Right neural foramina is patent. L3-L4: Minimal anterolisthesis of L3 on L4 with mild loss of disc space, disc desiccation, diffuse disc bulge with bilateral facet joint arthropathy and ligamentum flavum hypertrophy resulting in mild central spinal canal stenosis, bilateral neural foramina are patent. L4-L5: Loss of disc space, disc desiccation, posterior disc osteophyte formation with bilateral facet joint arthropathy and ligamentum flavum hypertrophy resulting in mild indentation on thecal sac, moderate right lateral recess narrowing, and mild bilateral neural foraminal narrowing. L5-S1: Complete loss of disc space, and bilateral facet joint arthropathy, without any central spinal canal stenosis or neural foraminal narrowing. Soft tissues: Unremarkable. IMPRESSION: Multilevel degenerative changes as described in detail above. No significant central spinal canal stenosis is seen. Multilevel neural foraminal narrowing. Electronically signed by: Jayashree Vargas On 10/25/2021 13:13:08 PM
--- NOTE | 2021-10-25 13:20 | REPVR ---
PROCEDURE INFORMATION: Exam: MR Thoracic Spine Without Contrast Exam date and time: 10/23/2021 1:57 PM Age: 76 years old Clinical indication: Pain in thoracic spine; Additional info: Cervicalgia/radiculopathy TECHNIQUE: Imaging protocol: Multiplanar magnetic resonance images of the thoracic spine without contrast. COMPARISON: MRI-Spine, L.S. without con 10/23/2021 12:57 PM FINDINGS: Vertebrae: Levoscoliosis of the thoracic spine and dextroscoliosis of the lumbar spine. Vertebral heights are maintained. No acute fracture. No traumatic subluxation. Loss of disc space with disc desiccation at multiple levels. Spinal cord: Normal signal. No cord compression. Discs/Spinal canal/Neural foramina: Multilevel small disc bulges are seen causing mild indentation on the thecal sac without any significant central spinal canal stenosis. Multilevel mild to moderate neural foraminal narrowing is seen most marked at the level of T11/T12 on the right. Soft tissues: Unremarkable. IMPRESSION: Multilevel small disc bulges are seen causing mild indentation on the thecal sac without any significant central spinal canal stenosis. Multilevel mild to moderate neural foraminal narrowing is seen most marked at the level of T11/T12 on the right. Electronically signed by: Jayashree Vargas On 10/25/2021 13:20:04 PM
== END ==
LOC: M PLAIMG 12:05
PROVIDERS: ATTEND Physician Assistant Surgical
DX: M50.30 Other cervical disc degeneration, unspecified cervical region (principal); M51.34 Other intervertebral disc degeneration, thoracic region; M51.37 Other intervertebral disc degeneration, lumbosacral region; M47.817 Spondylosis without myelopathy or radiculopathy, lumbosacral region

== ENCOUNTER → 2021-12-15 | Outpatient (REF) | payer MEDICARE, BC | LOC: M LAB REF 17:07 | PROVIDERS: ATTEND Orthopaedic Surgery | DX: Z01.818 Encounter for other preprocedural examination (principal); Z96.652 Presence of left artificial knee joint; M25.562 Pain in left knee ==

== ENCOUNTER → 2021-12-28 | Outpatient (REF) | payer MEDICARE, BC ==
[2021-12-28 12:44] LABS: BASO % 0.2 % (0.0-1.0); EOS # 0.1 10^3/uL (0.0-0.5); EOS % 0.8 % (0.0-3.0); HEMOGLOBIN 13.2 g/dl (12.0-15.5); LYMPH # 1.3 10^3/uL (1.5-5.0); LYMPH % 13.4 % (24.0-44.0); MEAN CORPUSCULAR HEMOGLOBIN 30.1 pg (27.0-33.0); MEAN CORPUSCULAR HGB CONC 30.7 g/dl (32.0-36.5); MEAN CORPUSCULAR VOLUME 97.9 fl (80.0-96.0); MONO # 0.6 10^3/uL (0.0-0.8); MONO % 6.3 % (2.0-8.0); NEUTROPHILS # 7.4 10^3/uL (1.5-8.5); NEUTROPHILS % 78.7 % (36.0-66.0); PLATELET COUNT, AUTOMATED 288 10^3/uL (150-450); RED BLOOD COUNT 4.39 10^6/uL (4.00-5.40); WHITE BLOOD COUNT 9.5 10^3/uL (4.0-10.0)
[2021-12-28 13:17] LABS: ERYTHROCYTE SEDIMENTATION RATE 23 mm/hr (0-30)
== END ==
LOC: M LABDRWAD 12:22
PROVIDERS: ATTEND Orthopaedic Surgery
DX: M25.562 Pain in left knee (principal)

== ENCOUNTER → 2022-01-15 | Outpatient (CLI) | payer MEDICARE, BC | LOC: M RAD 09:46 | PROVIDERS: ATTEND Orthopaedic Surgery | DX: M25.562 Pain in left knee (principal); Z96.652 Presence of left artificial knee joint | CPT/HCPCS: 78315; A9503 ==

== ENCOUNTER → 2022-03-06 | Outpatient (CLI) | payer MEDICARE, BC ==
[~2022-03-06] MED LIST changes: -ACET1TAB16 PO; +ACET300T48 PO
[2022-03-06 16:23] LABS: BASO % 0.7 % (0.0-1.0); EOS # 0.2 10^3/uL (0.0-0.5); EOS % 2.8 % (0.0-3.0); HEMATOCRIT 37.8 % (36.0-47.0); HEMOGLOBIN 11.5 g/dl (12.0-15.5); LYMPH # 1.4 10^3/uL (1.5-5.0); LYMPH % 22.5 % (24.0-44.0); MEAN CORPUSCULAR HEMOGLOBIN 29.4 pg (27.0-33.0); MEAN CORPUSCULAR HGB CONC 30.4 g/dl (32.0-36.5); MEAN CORPUSCULAR VOLUME 96.7 fl (80.0-96.0); MONO # 0.5 10^3/uL (0.0-0.8); MONO % 7.9 % (2.0-8.0); NEUTROPHILS % 65.9 % (36.0-66.0); PLATELET COUNT, AUTOMATED 288 10^3/uL (150-450); RED BLOOD COUNT 3.91 10^6/uL (4.00-5.40); WHITE BLOOD COUNT 6.1 10^3/uL (4.0-10.0)
[2022-03-06 16:43] LABS: ALBUMIN 3.5 GM/DL (3.2-5.2); ALT/SGPT 16 U/L (12-78); BILIRUBIN,TOTAL 0.3 MG/DL (0.2-1.0); BLOOD UREA NITROGEN 18 MG/DL (7-18); CALCIUM LEVEL 9.6 MG/DL (8.8-10.2); CARBON DIOXIDE LEVEL 29 MEQ/L (21-32); CHLORIDE LEVEL 110 MEQ/L (98-107); CREATININE FOR GFR 0.69 MG/DL (0.55-1.30); GLOMERULAR FILTRATION RATE > 60.0 (>39); GLUCOSE, FASTING 87 MG/DL (70-100); MAGNESIUM LEVEL 2.1 MG/DL (1.8-2.4); POTASSIUM SERUM 4.4 MEQ/L (3.5-5.1); SODIUM LEVEL 144 MEQ/L (136-145); TOTAL PROTEIN 6.5 GM/DL (6.4-8.2)
== END ==
LOC: M ADAMS 14:07
PROVIDERS: ATTEND Nurse Practitioner Adult Health
DX: Z01.810 Encounter for preprocedural cardiovascular examination (principal); E83.42 Hypomagnesemia

== ENCOUNTER → 2022-07-06 | Outpatient (CLI) | payer MEDICARE, BC ==
[~2022-07-06] MED LIST changes: +ISOVUE-300 61% 50ML VIAL As Ordered ONE; +LIDOCAINE 1% MDV 20ML VIAL As Ordered ONE; +POTA-150 PO; -POTA10TA17 PO; +TRIAMCINOLONE ACETONIDE SUSP 40 MG/ML VIAL (J3301) As Ordered ONE; +methylPREDNISolone SUSP 40MG/ML 1ML VIAL (DEPO MEDROL) As Ordered ONE
== END ==
LOC: M RADPRO 11:42
PROVIDERS: ATTEND Physician Assistant Surgical
DX: M19.011 Primary osteoarthritis, right shoulder (principal); M75.42 Impingement syndrome of left shoulder
CPT/HCPCS: 20610; 76000; J1030; Q9967

== ENCOUNTER → 2022-07-06 | Outpatient (CLI) | payer MEDICARE, BC ==
[~2022-07-06] MED LIST changes: -ISOVUE-300 61% 50ML VIAL As Ordered ONE; -LIDOCAINE 1% MDV 20ML VIAL As Ordered ONE; -TRIAMCINOLONE ACETONIDE SUSP 40 MG/ML VIAL (J3301) As Ordered ONE; -methylPREDNISolone SUSP 40MG/ML 1ML VIAL (DEPO MEDROL) As Ordered ONE
[2022-07-06 17:52] LABS: BASO # 0.1 10^3/uL (0.0-0.2); BASO % 0.6 % (0.0-1.0); EOS # 0.1 10^3/uL (0.0-0.5); EOS % 1.5 % (0.0-3.0); HEMATOCRIT 43.3 % (36.0-47.0); HEMOGLOBIN 12.9 g/dl (12.0-15.5); LYMPH # 1.1 10^3/uL (1.5-5.0); LYMPH % 13.9 % (24.0-44.0); MEAN CORPUSCULAR HEMOGLOBIN 27.9 pg (27.0-33.0); MEAN CORPUSCULAR HGB CONC 29.8 g/dl (32.0-36.5); MEAN CORPUSCULAR VOLUME 93.5 fl (80.0-96.0); MONO # 0.5 10^3/uL (0.0-0.8); MONO % 6.5 % (2.0-8.0); NEUTROPHILS # 6.1 10^3/uL (1.5-8.5); NEUTROPHILS % 77.2 % (36.0-66.0); PLATELET COUNT, AUTOMATED 273 10^3/uL (150-450); RED BLOOD COUNT 4.63 10^6/uL (4.00-5.40); WHITE BLOOD COUNT 7.9 10^3/uL (4.0-10.0)
[2022-07-06 18:32] LABS: ALBUMIN 3.7 GM/DL (3.2-5.2); ALT/SGPT 16 U/L (12-78); BILIRUBIN,TOTAL 0.6 MG/DL (0.2-1.0); BLOOD UREA NITROGEN 16 MG/DL (7-18); CALCIUM LEVEL 9.6 MG/DL (8.8-10.2); CARBON DIOXIDE LEVEL 26 MEQ/L (21-32); CHLORIDE LEVEL 103 MEQ/L (98-107); CHOLESTEROL LEVEL 215 MG/DL (< 200); CHOLESTEROL LEVEL 215 MG/DL (<200); CHOLESTEROL RISK RATIO 3.257 (<5); GLOMERULAR FILTRATION RATE > 60.0 (>39); GLUCOSE, FASTING 76 MG/DL (70-100); HDL CHOLESTEROL 66 MG/DL (> 40); HDL CHOLESTEROL 66 MG/DL (>40); LDL CHOLESTEROL 104 MG/DL (<100); NON-HDL-C 149 MG/DL; POTASSIUM SERUM 4.8 MEQ/L (3.5-5.1); SODIUM LEVEL 137 MEQ/L (136-145); TOTAL PROTEIN 6.8 GM/DL (6.4-8.2); TRIGLYCERIDES LEVEL 223 MG/DL (<150)
== END ==
LOC: M ADAMS 11:07
PROVIDERS: ATTEND Nurse Practitioner Adult Health
DX: I10 Essential (primary) hypertension (principal); E78.00 Pure hypercholesterolemia, unspecified; I82.411 Acute embolism and thrombosis of right femoral vein

== ENCOUNTER → 2022-11-28 | Outpatient (CLI) | payer MEDICARE, BC ==
[2022-11-28 16:34] LABS: PLATELET COUNT, AUTOMATED 484 10^3/uL (150-450)
[2022-11-28 16:54] LABS: INR 1.52; PROTHROMBIN TIME 18.6 SECONDS (12.5-14.5)
[2022-11-28 16:55] LABS: PARTIAL THROMBOPLASTIN TIME 45.4 SECONDS (24.8-34.2)
== END ==
LOC: M LABDRWAD 11:31
PROVIDERS: ATTEND Physician Assistant Surgical
DX: Z20.828 Contact with and (suspected) exposure to other viral communicable diseases (principal)

== ENCOUNTER → 2023-02-06 | Outpatient (REF) | payer MEDICARE, BC ==
[2023-02-06 13:29] LABS: BASO % 0.3 % (0.0-1.0); EOS # 0.1 10^3/uL (0.0-0.5); HEMATOCRIT 37.7 % (36.0-47.0); HEMOGLOBIN 10.8 g/dl (12.0-15.5); LYMPH # 0.8 10^3/uL (1.5-5.0); LYMPH % 12.9 % (24.0-44.0); MEAN CORPUSCULAR HEMOGLOBIN 26.7 pg (27.0-33.0); MEAN CORPUSCULAR HGB CONC 28.6 g/dl (32.0-36.5); MEAN CORPUSCULAR VOLUME 93.3 fl (80.0-96.0); MONO # 0.4 10^3/uL (0.0-0.8); MONO % 6.1 % (2.0-8.0); NEUTROPHILS % 79.2 % (36.0-66.0); PLATELET COUNT, AUTOMATED 365 10^3/uL (150-450); RED BLOOD COUNT 4.04 10^6/uL (4.00-5.40); WHITE BLOOD COUNT 6.3 10^3/uL (4.0-10.0)
[2023-02-06 14:07] LABS: ALBUMIN 2.6 G/DL (3.2-5.2); ALKALINE PHOSPHATASE 109 U/L (46-116); ALT/SGPT < 9 U/L (7.0-40); AST/SGOT 18 U/L (<34); BILIRUBIN,TOTAL 0.3 MG/DL (0.3-1.2); BLOOD UREA NITROGEN 12 MG/DL (9-23); CALCIUM LEVEL 9.4 MG/DL (8.3-10.6); CARBON DIOXIDE LEVEL 28 MMOL/L (20-31); CHLORIDE LEVEL 105 MMOL/L (98-107); CHOLESTEROL LEVEL 153 MG/DL (<200); CHOLESTEROL RISK RATIO 2.93 (<5); GLOMERULAR FILTRATION RATE > 60.0 (>39); GLUCOSE, FASTING 85 MG/DL (74-106); HDL CHOLESTEROL 52.2 MG/DL (>40); LDL CHOLESTEROL 71.6 MG/DL (<100); MAGNESIUM LEVEL 1.9 MG/DL (1.8-2.4); NON-HDL-C 100.8 MG/DL; POTASSIUM SERUM 5.3 MMOL/L (3.5-5.1); SODIUM LEVEL 140 MMOL/L (136-145); TOTAL PROTEIN 6.2 G/DL (5.7-8.2); TRIGLYCERIDES LEVEL 146 MG/DL (<150)
== END ==
LOC: M LABDRWAD 12:40
PROVIDERS: ATTEND Nurse Practitioner Adult Health
DX: E78.00 Pure hypercholesterolemia, unspecified (principal); E83.42 Hypomagnesemia

== ENCOUNTER → 2023-03-04 | Outpatient (CLI) | payer MEDICARE, BC ==
[2023-03-04 10:34] LABS: INR 0.94; PROTHROMBIN TIME 12.8 SECONDS (12.5-14.5)
[2023-03-04 10:35] LABS: PARTIAL THROMBOPLASTIN TIME 28.2 SECONDS (24.8-34.2)
== END ==
LOC: M LAB 09:45
PROVIDERS: ATTEND Physical Medicine & Rehabilitation
DX: Z01.812 Encounter for preprocedural laboratory examination (principal)

== ENCOUNTER → 2023-04-12 | Outpatient (CLI) | payer MEDICARE, BC ==
[~2023-04-12] MED LIST changes: +ISOVUE-300 61% 100ML VIAL As Ordered ONE; +LIDOCAINE 1% MDV 20ML VIAL As Ordered ONE; +methylPREDNISolone SUSP 40MG/ML 1ML VIAL (DEPO MEDROL) As Ordered ONE
== END ==
LOC: M RAD 12:59
PROVIDERS: ATTEND Physician Assistant Surgical
DX: M19.011 Primary osteoarthritis, right shoulder (principal); M19.012 Primary osteoarthritis, left shoulder
CPT/HCPCS: 20610; 77002; J1030; Q9967

== ENCOUNTER → 2023-06-25 | Outpatient (REF) | payer MEDICARE, BC ==
[~2023-06-25] MED LIST changes: -ISOVUE-300 61% 100ML VIAL As Ordered ONE; -K-TA10TA PO; -LIDOCAINE 1% MDV 20ML VIAL As Ordered ONE; +POTA-164 PO; -methylPREDNISolone SUSP 40MG/ML 1ML VIAL (DEPO MEDROL) As Ordered ONE
[2023-06-25 13:00] LABS: BASO # 0.1 10^3/uL (0.0-0.2); BASO % 0.6 % (0.0-1.0); EOS # 0.1 10^3/uL (0.0-0.5); HEMATOCRIT 36.3 % (36.0-47.0); HEMOGLOBIN 10.6 g/dl (12.0-15.5); LYMPH # 0.9 10^3/uL (1.5-5.0); LYMPH % 11.4 % (24.0-44.0); MEAN CORPUSCULAR HEMOGLOBIN 26.2 pg (27.0-33.0); MEAN CORPUSCULAR HGB CONC 29.2 g/dl (32.0-36.5); MEAN CORPUSCULAR VOLUME 89.9 fl (80.0-96.0); MONO # 0.6 10^3/uL (0.0-0.8); MONO % 7.6 % (2.0-8.0); NEUTROPHILS # 6.2 10^3/uL (1.5-8.5); NEUTROPHILS % 78.9 % (36.0-66.0); PLATELET COUNT, AUTOMATED 397 10^3/uL (150-450); RED BLOOD COUNT 4.04 10^6/uL (4.00-5.40); WHITE BLOOD COUNT 7.9 10^3/uL (4.0-10.0)
[2023-06-25 13:24] LABS: ALKALINE PHOSPHATASE 96 U/L (46-116); ALT/SGPT < 9 U/L (7.0-40); AST/SGOT < 8 U/L (<34); BILIRUBIN,TOTAL 0.3 MG/DL (0.3-1.2); BLOOD UREA NITROGEN 19 MG/DL (9-23); CALCIUM LEVEL 9.3 MG/DL (8.3-10.6); CARBON DIOXIDE LEVEL 29 MMOL/L (20-31); CHLORIDE LEVEL 104 MMOL/L (98-107); CHOLESTEROL LEVEL 123 MG/DL (<200); CHOLESTEROL RISK RATIO 2.86 (<5); CREATININE FOR GFR 0.73 MG/DL (0.55-1.30); GLOMERULAR FILTRATION RATE > 60.0 (>39); GLUCOSE, FASTING 95 MG/DL (74-106); POTASSIUM SERUM 4.6 MMOL/L (3.5-5.1); SODIUM LEVEL 140 MMOL/L (136-145); TOTAL PROTEIN 6.7 G/DL (5.7-8.2); TRIGLYCERIDES LEVEL 105 MG/DL (<150)
== END ==
LOC: M LABDRWAD 12:36
PROVIDERS: ATTEND Internal Medicine
DX: E83.42 Hypomagnesemia (principal); E78.00 Pure hypercholesterolemia, unspecified; I10 Essential (primary) hypertension

== ENCOUNTER → 2023-08-16 | Outpatient (CLI) | payer MEDICARE, BC ==
[~2023-08-16] MED LIST changes: +PROHANCE 279.3MG/ML 15ML VIAL ONE; +PROHANCE 279.3MG/ML 5ML VIAL ONE
== END ==
LOC: M PLAIMG 11:58
PROVIDERS: ATTEND Nurse Practitioner Adult Health
DX: M47.816 Spondylosis without myelopathy or radiculopathy, lumbar region (principal); M54.50 Low back pain, unspecified
CPT/HCPCS: 72158; A9576

== ENCOUNTER → 2024-01-21 | Outpatient (CLI) | payer MEDICARE, BC ==
[~2024-01-21] MED LIST changes: -PROHANCE 279.3MG/ML 15ML VIAL ONE; -PROHANCE 279.3MG/ML 5ML VIAL ONE
== END ==
LOC: M PLAIMG 06:36
PROVIDERS: ATTEND Pain Medicine Interventional Pain Medicine
DX: M19.012 Primary osteoarthritis, left shoulder (principal); M19.011 Primary osteoarthritis, right shoulder; M75.00 Adhesive capsulitis of unspecified shoulder

== ENCOUNTER → 2024-04-30 | Outpatient (CLI) | payer MEDICARE, BC ==
[2024-04-30 13:54] LABS: BASO % 0.5 % (0.0-1.0); EOS # 0.1 10^3/uL (0.0-0.5); EOS % 1.3 % (0.0-3.0); HEMATOCRIT 42.6 % (36.0-47.0); HEMOGLOBIN 12.8 g/dl (12.0-15.5); LYMPH % 13.3 % (24.0-44.0); MEAN CORPUSCULAR HEMOGLOBIN 28.3 pg (27.0-33.0); MEAN CORPUSCULAR VOLUME 94.2 fl (80.0-96.0); MONO # 0.4 10^3/uL (0.0-0.8); MONO % 5.4 % (2.0-8.0); NEUTROPHILS # 6.2 10^3/uL (1.5-8.5); NEUTROPHILS % 79.2 % (36.0-66.0); PLATELET COUNT, AUTOMATED 283 10^3/uL (150-450); RED BLOOD COUNT 4.52 10^6/uL (4.00-5.40); WHITE BLOOD COUNT 7.8 10^3/uL (4.0-10.0)
[2024-04-30 14:24] LABS: ALBUMIN 3.5 G/DL (3.2-5.2); ALKALINE PHOSPHATASE 110 U/L (46-116); ALT/SGPT 13 U/L (7.0-40); AST/SGOT 12 U/L (<34); BILIRUBIN,TOTAL 0.5 MG/DL (0.3-1.2); BLOOD UREA NITROGEN 18 MG/DL (9-23); CALCIUM LEVEL 9.4 MG/DL (8.3-10.6); CARBON DIOXIDE LEVEL 29 MMOL/L (20-31); CHLORIDE LEVEL 105 MMOL/L (98-107); CHOLESTEROL LEVEL 147 MG/DL (<200); CHOLESTEROL RISK RATIO 3.34 (<5); GLOMERULAR FILTRATION RATE > 60.0 (>39); GLUCOSE, FASTING 104 MG/DL (74-106); LDL CHOLESTEROL 73.2 MG/DL (<100); MAGNESIUM LEVEL 1.9 MG/DL (1.8-2.4); POTASSIUM SERUM 4.9 MMOL/L (3.5-5.1); SODIUM LEVEL 140 MMOL/L (136-145); TOTAL PROTEIN 6.6 G/DL (5.7-8.2); TRIGLYCERIDES LEVEL 149 MG/DL (<150)
== END ==
LOC: M ADAMS 11:16
PROVIDERS: ATTEND Nurse Practitioner Adult Health
DX: E78.00 Pure hypercholesterolemia, unspecified (principal); E83.42 Hypomagnesemia; I10 Essential (primary) hypertension; W19.XXXA Unspecified fall, initial encounter

== ENCOUNTER → 2024-05-15 | Outpatient (CLI) | payer MEDICARE, BC | LOC: M RAD 07:01 | PROVIDERS: ATTEND Nurse Practitioner Adult Health | DX: M67.813 Other specified disorders of tendon, right shoulder (principal); M19.012 Primary osteoarthritis, left shoulder ==

== ENCOUNTER → 2024-11-17 | Outpatient (REF) | payer MEDICARE, BC ==
[2024-11-17 14:39] LABS: BASO % 0.5 % (0.0-1.0); EOS # 0.1 10^3/uL (0.0-0.5); EOS % 0.6 % (0.0-3.0); HEMATOCRIT 49.2 % (36.0-47.0); HEMOGLOBIN 14.6 g/dl (12.0-15.5); LYMPH # 1.2 10^3/uL (1.5-5.0); LYMPH % 14.6 % (24.0-44.0); MEAN CORPUSCULAR HEMOGLOBIN 28.7 pg (27.0-33.0); MEAN CORPUSCULAR HGB CONC 29.7 g/dl (32.0-36.5); MEAN CORPUSCULAR VOLUME 96.7 fl (80.0-96.0); MONO # 0.4 10^3/uL (0.0-0.8); MONO % 5.4 % (2.0-8.0); NEUTROPHILS # 6.4 10^3/uL (1.5-8.5); NEUTROPHILS % 78.5 % (36.0-66.0); PLATELET COUNT, AUTOMATED 324 10^3/uL (150-450); RED BLOOD COUNT 5.09 10^6/uL (4.00-5.40); WHITE BLOOD COUNT 8.1 10^3/uL (4.0-10.0)
[2024-11-17 15:16] LABS: ALBUMIN 3.6 G/DL (3.2-5.2); ALKALINE PHOSPHATASE 110 U/L (35-104); ALT/SGPT 14 U/L (7.0-40); AST/SGOT 27 U/L (<34); BILIRUBIN,TOTAL 0.6 MG/DL (0.3-1.2); BLOOD UREA NITROGEN 17 MG/DL (9-23); CALCIUM LEVEL 10.3 MG/DL (8.3-10.6); CARBON DIOXIDE LEVEL 27 MMOL/L (20-31); CHLORIDE LEVEL 99 MMOL/L (98-107); CHOLESTEROL LEVEL 164 MG/DL (<200); CHOLESTEROL RISK RATIO 2.89 (<5); GLOMERULAR FILTRATION RATE > 60.0 (>39); GLUCOSE, FASTING 81 MG/DL (74-106); HDL CHOLESTEROL 56.6 MG/DL (>40); LDL CHOLESTEROL 75.6 MG/DL (<100); NON-HDL-C 107.4 MG/DL; POTASSIUM SERUM 4.9 MMOL/L (3.5-5.1); SODIUM LEVEL 142 MMOL/L (136-145); TOTAL PROTEIN 7.3 G/DL (5.7-8.2); TRIGLYCERIDES LEVEL 159 MG/DL (<150)
== END ==
LOC: M LABDRWAD 13:07
PROVIDERS: ATTEND Internal Medicine
DX: E78.00 Pure hypercholesterolemia, unspecified (principal); I10 Essential (primary) hypertension; M15.9 Polyosteoarthritis, unspecified; Z79.899 Other long term (current) drug therapy

== ENCOUNTER 2025-01-04 11:12 | Observation (INO) | payer MEDICARE, BC ==
[~2025-01-04] VITALS: Ht 172.7 cm; Wt 82.5 kg
[2025-01-04] MEDS ORDERED: MORPHINE 2 MG/ML 1ML VIAL IV PRN (12:45)
[2025-01-04 14:31] LABS: BASO % 0.3 % (0.0-1.0); EOS % 0.1 % (0.0-3.0); HEMATOCRIT 36.2 % (36.0-47.0); HEMOGLOBIN 11.1 g/dl (12.0-15.5); LYMPH # 0.7 10^3/uL (1.5-5.0); LYMPH % 8.7 % (24.0-44.0); MEAN CORPUSCULAR HEMOGLOBIN 29.5 pg (27.0-33.0); MEAN CORPUSCULAR HGB CONC 30.7 g/dl (32.0-36.5); MEAN CORPUSCULAR VOLUME 96.3 fl (80.0-96.0); MONO # 0.7 10^3/uL (0.0-0.8); MONO % 9.1 % (2.0-8.0); NEUTROPHILS # 6.4 10^3/uL (1.5-8.5); NEUTROPHILS % 81.4 % (36.0-66.0); PLATELET COUNT, AUTOMATED 246 10^3/uL (150-450); RED BLOOD COUNT 3.76 10^6/uL (4.00-5.40); WHITE BLOOD COUNT 7.8 10^3/uL (4.0-10.0)
[2025-01-04 14:43] LABS: INR 1.31; PROTHROMBIN TIME 16.5 SECONDS (12.5-14.5)
[2025-01-04 14:53] LABS: CK-MB VALUE MASS 3.2 NG/ML (<3.6)
[2025-01-04 14:55] LABS: CPK CREATINE PHOSPHOKINASE 148 U/L (34-145); MB/CK RELATIVE INDEX 2.16 (< OR =4)
[2025-01-04 14:57] LABS: FREE T4 1.15 NG/DL (0.89-1.76)
[2025-01-04 14:58] LABS: THYROID STIMULATING HORMONE 2.074 uIU/ML (0.55-4.78)
[2025-01-04 15:00] LABS: BLOOD UREA NITROGEN 23 MG/DL (9-23); CALCIUM LEVEL 8.7 MG/DL (8.3-10.6); CARBON DIOXIDE LEVEL 28 MMOL/L (20-31); CHLORIDE LEVEL 100 MMOL/L (98-107); CREATININE FOR GFR 0.91 MG/DL (0.55-1.30); GLOMERULAR FILTRATION RATE > 60.0 (>39); GLUCOSE, FASTING 93 MG/DL (74-106); SODIUM LEVEL 139 MMOL/L (136-145)
[2025-01-04] MEDS: MORPHINE 4 MG/ML 1ML VIAL IV ONE (15:21)
[2025-01-04 16:14] LABS: CK-MB VALUE MASS 2.5 NG/ML (<3.6)
[2025-01-04 16:18] LABS: MB/CK RELATIVE INDEX 1.67 (< OR =4)
[2025-01-04] MEDS ORDERED: LACTOBACILLUS ACIDOPHILUS CAP (BACID) PO SCH (18:00)
[2025-01-04 19:14] LABS: INR 1.42; PARTIAL THROMBOPLASTIN TIME 33.4 SECONDS (24.8-34.2); PROTHROMBIN TIME 17.6 SECONDS (12.5-14.5)
[2025-01-04] MEDS ORDERED: ALPR0.5T3 PO (19:19)
[2025-01-04] MEDS ORDERED: TIZA2CAP PO (19:21)
[2025-01-04] MEDS ORDERED: ACET300T47 PO (19:26)
[2025-01-04] MEDS ORDERED: VITA200012 PO (19:26)
[2025-01-04] MEDS ORDERED: HOME MED LIST COMPLETE! XX SCH (19:30)
[2025-01-04 20:48] VITALS: BP 108/62; TEMP 99.5; O2SAT 89
[2025-01-04 21:00] VITALS: O2SAT 95
[2025-01-04] MEDS: APIXABAN 5 MG TAB (ELIQUIS) PO SCH (21:00)
[2025-01-04] MEDS: ACETAMINOPHEN 325 MG TAB PO PRN (21:49)
[2025-01-05 00:09] LABS: CK-MB VALUE MASS 1.5 NG/ML (<3.6)
[2025-01-05 00:12] LABS: MB/CK RELATIVE INDEX 1.23 (< OR =4)
[2025-01-05 02:58] LABS: MAGNESIUM LEVEL 1.8 MG/DL (1.8-2.4); POTASSIUM SERUM 4.4 MMOL/L (3.5-5.1)
[2025-01-05 03:45] VITALS: BP 117/62; TEMP 97.3; O2SAT 94
[2025-01-05 05:55] LABS: HEMATOCRIT 30.6 % (36.0-47.0); HEMOGLOBIN 9.9 g/dl (12.0-15.5); MEAN CORPUSCULAR HEMOGLOBIN 30.1 pg (27.0-33.0); MEAN CORPUSCULAR HGB CONC 32.4 g/dl (32.0-36.5); PLATELET COUNT, AUTOMATED 207 10^3/uL (150-450); RED BLOOD COUNT 3.29 10^6/uL (4.00-5.40); WHITE BLOOD COUNT 5.9 10^3/uL (4.0-10.0)
[2025-01-05 06:27] LABS: ALBUMIN 2.3 G/DL (3.2-5.2); ALKALINE PHOSPHATASE 85 U/L (35-104); ALT/SGPT < 9 U/L (7.0-40); AST/SGOT 19 U/L (<34); BILIRUBIN,TOTAL 0.8 MG/DL (0.3-1.2); BLOOD UREA NITROGEN 20 MG/DL (9-23); CALCIUM LEVEL 8.4 MG/DL (8.3-10.6); CARBON DIOXIDE LEVEL 28 MMOL/L (20-31); CHLORIDE LEVEL 100 MMOL/L (98-107); CREATININE FOR GFR 0.77 MG/DL (0.55-1.30); GLOMERULAR FILTRATION RATE > 60.0 (>39); GLUCOSE, FASTING 81 MG/DL (74-106); POTASSIUM SERUM 4.1 MMOL/L (3.5-5.1); SODIUM LEVEL 138 MMOL/L (136-145); TOTAL PROTEIN 5.2 G/DL (5.7-8.2)
[2025-01-05] MEDS ORDERED: OMEPRAZOLE 20MG CAP PO SCH (09:00)
[2025-01-05] MEDS: MULTIVITAMINS/MINERALS THERAP 1 TAB PO SCH (10:04)
[2025-01-05] MEDS: allopurinoL 300 MG TAB PO SCH (10:05)
[2025-01-05] MEDS: PERCOCET 5MG/325MG TAB PO PRN ×2 (11:37→20:37)
[2025-01-05 12:00] VITALS: BP 117/63; TEMP 97.7; O2SAT 98
[2025-01-05 20:43] VITALS: BP 117/64; TEMP 98.8; O2SAT 91
[2025-01-06 03:38] VITALS: BP 127/66; TEMP 97.3; O2SAT 95
[2025-01-06 08:15] VITALS: BP 127/68; TEMP 97; O2SAT 100
[2025-01-06 12:00] VITALS: BP 109/66; TEMP 97; O2SAT 96
[2025-01-06 14:39] LABS: HEMATOCRIT 33.5 % (36.0-47.0); HEMOGLOBIN 10.6 g/dl (12.0-15.5)
[2025-01-06 20:15] VITALS: BP 107/62; TEMP 98.2; O2SAT 93
[2025-01-07 04:05] VITALS: BP 143/79; TEMP 97.7; O2SAT 95
[2025-01-07] MEDS ORDERED: ALPRAZolam 0.5 MG TAB PO PRN (09:00)
[2025-01-07] MEDS: SERTRALINE 100 MG TAB PO SCH (09:17)
[2025-01-07] MEDS: ALPRAZolam 0.5 MG TAB PO SCH (09:17)
[2025-01-07] MEDS: MAGNESIUM OXIDE 400MG TAB (MAG-OX) PO SCH (09:18)
[2025-01-07 12:37] VITALS: BP 139/85; TEMP 97.9; O2SAT 96
[2025-01-07 19:36] VITALS: BP 139/87; TEMP 98.6; O2SAT 88
[2025-01-07 19:39] VITALS: O2SAT 94
[2025-01-08 04:00] VITALS: BP 140/58; TEMP 98.2; O2SAT 96
[2025-01-08 11:58] VITALS: BP 112/70; TEMP 97.3; O2SAT 99
[2025-01-08 20:08] VITALS: BP 107/53; TEMP 97.7; O2SAT 100
[2025-01-09 06:16] VITALS: BP 120/81; TEMP 97.2; O2SAT 95
[2025-01-10 06:38] VITALS: BP 143/80; TEMP 98.2; O2SAT 93
[2025-01-11 04:00] VITALS: BP 118/76; TEMP 98.1; O2SAT 96
[2025-01-12 04:00] VITALS: BP 115/61; TEMP 97.7; O2SAT 98
[2025-01-12 20:50] VITALS: BP 118/66; TEMP 97.7; O2SAT 97
[2025-01-13 04:41] VITALS: BP 143/85; TEMP 97.5; O2SAT 96
[2025-01-13 20:00] VITALS: BP 119/61; TEMP 97.7; O2SAT 95
[2025-01-14 03:39] VITALS: BP 116/62; TEMP 97.7; O2SAT 98
== END 2025-01-14 13:38 | disposition home health service (06) ==
LOC: EDBD 11:12 → M ED 11:12 → M ED INP 17:45 → INTOOBSV 17:45 → M MSPAV 20:39
PROVIDERS: ADMIT Internal Medicine; ATTEND Internal Medicine
DX: S82.841A Displaced bimalleolar fracture of right lower leg, initial encounter for closed fracture (principal); S92.331A Displaced fracture of third metatarsal bone, right foot, initial encounter for closed fracture; W01.0XXA Fall on same level from slipping, tripping and stumbling without subsequent striking against object, initial encounter; Y92.018 Other place in single-family (private) house as the place of occurrence of the external cause; Y93.01 Activity, walking, marching and hiking; Y99.8 Other external cause status; R53.81 Other malaise; I45.81 Long QT syndrome; Z86.718 Personal history of other venous thrombosis and embolism; Z86.711 Personal history of pulmonary embolism; K21.9 Gastro-esophageal reflux disease without esophagitis; I10 Essential (primary) hypertension; F32.A Depression, unspecified; F41.9 Anxiety disorder, unspecified; M10.9 Gout, unspecified; R79.89 Other specified abnormal findings of blood chemistry; E78.5 Hyperlipidemia, unspecified; R29.6 Repeated falls; L98.499 Non-pressure chronic ulcer of skin of other sites with unspecified severity; Z79.899 Other long term (current) drug therapy; Z79.01 Long term (current) use of anticoagulants
CPT/HCPCS: 36415; 70450; 71045; 72125; 73590; 73610; 73630; 80048; 80053; 82550; 82553; 83735; 84132; 84439; 84443; 84484; 85014; 85018; 85025; 85027; 85610; 85730; 93005; 93041; 94760; 96374; 97110; 97161; 97165; 97530; 97535; 99285; G0378

== ENCOUNTER → 2025-01-20 | Outpatient (CLI) | payer MEDICARE, BC ==
[~2025-01-20] MED LIST changes: +ACET300T47 PO; +ALPR0.5T3 PO; +TIZA2CAP PO; +VITA200012 PO
== END ==
LOC: M SOG 07:50
PROVIDERS: ATTEND Physician Assistant
DX: M25.571 Pain in right ankle and joints of right foot (principal); M20.11 Hallux valgus (acquired), right foot; M21.611 Bunion of right foot; M19.071 Primary osteoarthritis, right ankle and foot

== ENCOUNTER → 2025-03-03 | Outpatient (CLI) | payer MEDICARE, BC | LOC: M SOG 07:55 | PROVIDERS: ATTEND Physician Assistant | DX: M19.071 Primary osteoarthritis, right ankle and foot (principal); S82.844D Nondisplaced bimalleolar fracture of right lower leg, subsequent encounter for closed fracture with routine healing ==

== ENCOUNTER → 2025-05-18 | Outpatient (CLI) | payer MEDICARE, BC ==
[2025-05-18 20:09] LABS: BASO # 0.0 10^3/uL (0.0-0.2); BASO % 0.4 % (0.0-1.0); EOS # 0.1 10^3/uL (0.0-0.5); EOS % 1.5 % (0.0-3.0); LYMPH # 1.4 10^3/uL (1.5-5.0); LYMPH % 21.2 % (24.0-44.0); MONO # 0.6 10^3/uL (0.0-0.8); MONO % 8.5 % (2.0-8.0); NEUTROPHILS # 4.6 10^3/uL (1.5-8.5); NEUTROPHILS % 68.3 % (36.0-66.0); PLATELET COUNT, AUTOMATED 224 10^3/uL (150-450)
[2025-05-18 20:31] LABS: ALT/SGPT 14.0 U/L (7.0-40); AST/SGOT 17.0 U/L (<34); CALCIUM LEVEL 9.5 MG/DL (8.3-10.6); CARBON DIOXIDE LEVEL 29.0 MMOL/L (20-31); CHLORIDE LEVEL 105.0 MMOL/L (98-107); CHOLESTEROL LEVEL 163.0 MG/DL (<200); CHOLESTEROL RISK RATIO 3.09 (<5); CREATININE FOR GFR 1.0 MG/DL (0.55-1.30); GLOMERULAR FILTRATION RATE 57.7 (>39); LDL CHOLESTEROL 75.2 MG/DL (<100); NON-HDL-C 110.4 MG/DL; POTASSIUM SERUM 4.7 MMOL/L (3.5-5.1); SODIUM LEVEL 145.0 MMOL/L (136-145); TRIGLYCERIDES LEVEL 176.0 MG/DL (<150)
[2025-05-18 20:34] LABS: TOTAL 25(OH) VITAMIN D 50.7 NG/ML (20.0-100.0)
== END ==
LOC: M PLALAB 15:13
PROVIDERS: ATTEND Nurse Practitioner Adult Health
DX: E78.00 Pure hypercholesterolemia, unspecified (principal); M15.9 Polyosteoarthritis, unspecified; I10 Essential (primary) hypertension; Z79.899 Other long term (current) drug therapy

== ENCOUNTER → 2025-06-21 | Outpatient (CLI) | payer MEDICARE, BC ==
[~2025-06-21] MED LIST changes: +SLOW1TAB3 PO; -SLOWTAB2 PO
== END ==
LOC: M PLAIMG 14:27
PROVIDERS: ATTEND Nurse Practitioner Adult Health
DX: M54.50 Low back pain, unspecified (principal); M47.816 Spondylosis without myelopathy or radiculopathy, lumbar region; M48.061 Spinal stenosis, lumbar region without neurogenic claudication

== ENCOUNTER → 2025-08-23 | Outpatient (REF) | payer MEDICARE, BC ==
[2025-08-23 18:23] LABS: BASO # 0.0 10^3/uL (0.0-0.2); BASO % 0.6 % (0.0-1.0); EOS # 0.1 10^3/uL (0.0-0.5); EOS % 1.1 % (0.0-3.0); LYMPH # 1.2 10^3/uL (1.5-5.0); LYMPH % 16.7 % (24.0-44.0); MONO # 0.4 10^3/uL (0.0-0.8); MONO % 5.0 % (2.0-8.0); NEUTROPHILS # 5.4 10^3/uL (1.5-8.5); NEUTROPHILS % 76.5 % (36.0-66.0); PLATELET COUNT, AUTOMATED 274 10^3/uL (150-450)
[2025-08-23 18:31] LABS: ALT/SGPT 10.0 U/L (7.0-40); AST/SGOT 15.0 U/L (<34); CALCIUM LEVEL 9.4 MG/DL (8.3-10.6); CARBON DIOXIDE LEVEL 31.0 MMOL/L (20-31); CHLORIDE LEVEL 104.0 MMOL/L (98-107); CHOLESTEROL LEVEL 165.0 MG/DL (<200); CHOLESTEROL RISK RATIO 3.03 (<5); CREATININE FOR GFR 0.82 MG/DL (0.55-1.30); GLOMERULAR FILTRATION RATE 73.2 (>39); LDL CHOLESTEROL 82.6 MG/DL (<100); NON-HDL-C 110.6 MG/DL; POTASSIUM SERUM 5.0 MMOL/L (3.5-5.1); SODIUM LEVEL 145.0 MMOL/L (136-145); TRIGLYCERIDES LEVEL 140.0 MG/DL (<150)
== END ==
LOC: M LABDRWAD 17:15
PROVIDERS: ATTEND Nurse Practitioner Adult Health
DX: I10 Essential (primary) hypertension (principal); E78.00 Pure hypercholesterolemia, unspecified; M25.571 Pain in right ankle and joints of right foot